=== PATIENT | male | born 1960 | race Caucasian/White ===

== ENCOUNTER 2019-09-11 09:13 | Observation (INO) | payer BC, SELFPAY ==
[2019-09-11] VITALS (69 sets, daily range): BP systolic 106–176; BP diastolic 68–99; PULSE 69–111; RESP 8–28; TEMP 35.8–36.6; O2SAT 92–98
--- NOTE | 2019-09-11 | DI.RAD_ITS ---
EXAM: XR PORTABLE CHEST AP CLINICAL HISTORY: wheezing TECHNIQUE: 2D digital imaging was performed. COMPARISON: No exams were available for comparison FINDINGS: MEDIASTINUM: Normal. HEART: Normal. PULMONARY VASCULATURE: Normal. LUNGS: Clear. PLEURAL SPACE: No pleural effusion or pneumothorax. BONE:Normal. OTHER FINDINGS:Normal. IMPRESSION: No acute pulmonary findings. DATA REPOSITORY: RADIATION DOSE DELIVERED:
[2019-09-11] MEDS: EPINEPHrine 0.3 MG KIT IM (09:17)
[2019-09-11] MEDS: FAMOTIDINE 20 MG/50 ML BAG 200 MG IVPB (09:35)
[2019-09-11] MEDS: diphenhydrAMINE 50 MG/ML VIAL IVP (09:35)
[2019-09-11] MEDS: methylPREDNISolone SUCC 125 MG VIAL IVP (09:35)
--- NOTE | 2019-09-11 09:41 | ED.GENADUL_ITS ---
Discharge Plan Disposition Patient Disposition: HOME Condition: Stable Discharge Details Chief Complaint: Allergic Clinical Impression: Anaphylactic reaction Admit Date/Time: 09/11/19 15:09 Admit Provider: Mehreen Ayala Attending Provider: Mehreen Ayala Primary Care Provider: Rupal Hoyt ED Provider: Stanford Jonas Discharge Data Discharge Date/Time-TO BE ENTERED AT DEPARTURE: 09/11/19 16:05 Medical Decision Making <TYLER Brito - Last Filed: 09/12/19 09:22> This is a 58-year-old patient presenting to the emergency room for concerns of acute allergic reaction. Patient reports he was fishing this morning and felt a prick and his left finger when taking a fish off the hook. Patient reports immediate tingling in his hand followed by swelling in his hand. Patient then reported onset of swelling in his ears. Patient began to feel swelling of his tongue. Patient also notes swelling around his eyes. patient reports onset of symptoms approximately 1-1/2 hours prior to arrival. Has taken no medications. Patient's friend drove him to the emergency room today. He presents with diffuse hive-like rash, swelling noted to his left hand as well as his ears mild fullness of his tongue distally. Patient has no voice change, difficulty breathing at this time or increase in respiratory effort. He does report noting his heart racing initially as well as mild nausea and symptoms of reflux at this time. Patient did report mild dizziness which has improved. Patient initially evaluated upon his arrival to the emergency room. 0.3 mg of epinephrine given IM, IV access obtained, orders for Benadryl, Solu-Medrol and Pepcid as well as IV fluid provided. Care subsequently taken over by Dr. Stanford Jonas. <Stanford Jonas MD - Last Filed: 09/12/19 09:25> 945??58-year-old male with known shellfish allergy history of hypertension presents with left hand swelling, urticarial rash, full body, tachycardia, nausea, and sensation of tongue swelling for the past 1.5 hours after handling of fish and sustaining fishhook puncture to left hand. Screening ECG was performed and reviewed and interpreted by me: Sinus rhythm 97 bpm, normal axis, subtle ST depressions are noted in leads I, 2, 3, aVF, V4 to 6. No old ECG for comparison. Patient has no chest discomfort. No known tetanus immunization identified on file. Plan to give tetanus booster for fishhook puncture. Suspect anaphylactic reaction to fish or unknown shellfish exposure. Patient was initially seen and given epinephrine by TYLER Ramirez. Plan to continue with Solu-Medrol, Benadryl, Pepcid, IV fluids and reassess patient. 1030??patient still with rash although slightly improved. Tongue swelling improved. Given persistent symptoms plan to give second dose of epinephrine. 1300 --patient reassessed and rash much improved. Tongue swelling resolved. 1445 --repeat ECG was ordered given abnormal findings on prior ECG and now multiple doses of epinephrine. The second EKG was interpreted by me: Sinus rhythm 83 bpm, normal axis, continues to have mild ST depression in lead III and now with T wave inversions noted V3 to V5 which are new compared to prior ECG. Patient is asymptomatic. Plan to send troponin. Patient reassessed and rash much improved. HPI <TYLER Brito - Last Filed: 09/12/19 09:22> General Date/Time Provider Initiated Documentation: 09/11/19 09:14 . Related Data Home Medications Medication Instructions Recorded Confirmed lisinopril 10 mg PO DAILY 09/11/19 09/11/19 psyllium husk [Metamucil] 3.4 g PO BID 09/11/19 09/11/19 Allergies Allergy/AdvReac Type Severity Reaction Status Date / Time shellfish derived Allergy Unverified 09/11/19 09:50 <Stanford Jonas MD - Last Filed: 09/12/19 09:25> General Mode of arrival: ambulatory . Limitations to Documentation: no limitations . Information obtained by: patient . HPI Narrative: 58-year-old male presents with chief complaint of rash. Patient notes full body itchy rash that started around 8 AM and has persisted. Patient notes additionally he sustained a slight puncture wound with fishhook to his left hand this morning immediately after started developed left hand swelling and and rash. He also notes a scratchy sensation in his throat with some tongue swelling. No shortness of breath. He has had some associated nausea. Symptoms progressed from moderate to severe. He states they peaked about 1/2-hour before arrival. He has not taken any medications. No modifiers. Of note, patient states he has had frequent similar swelling of his left hand while fishing. He does have a known shellfish allergy. Typically tolerate eating fish including both salmon and a headache. He was not using any shellfish for bait. General Stated Complaint: Allergic CHRIS: 2 <Stanford Jonas MD - Last Filed: 09/12/19 09:25> All systems reviewed & are unremarkable except as noted in HPI and below Constitutional Constitutional: Denies fever(s) ENT Ears, Nose, Mouth, and Throat: Reports as per HPI Cardiovascular Cardiovascular: Denies dyspnea Respiratory Respiratory: Denies cough and Denies dyspnea Integumentary/Breasts Skin/Breast: Reports rash PFSH <TYLER Brito - Last Filed: 09/12/19 09:22> Medical History (Updated 09/11/19 @ 17:37 by Mehreen Ayala MD) Anaphylactic reaction (Acute) Asthma (Chronic) Diverticulosis (Acute) Dyslipidemia (Acute) GERD (gastroesophageal reflux disease) (Chronic) Inflammatory polyps of colon (Acute) Rapid heart rate (Acute) Tobacco abuse (Acute) Surgical History (Updated 09/11/19 @ 17:25 by Mehreen Ayala MD) H/O cardiac catheterization (Inactive) [place], [place], in early 1999's - negative H/O colonoscopy with polypectomy (Acute) repeat colonoscopy in 1 year S/P appendectomy (Acute) Family History (Updated 09/11/19 @ 17:26 by Mehreen Ayala MD) Maternal Grandfather Stroke Mother Cancer pancreatic cancer Father Cancer kidney cancer Social History Smoking/Tobacco Use Status: Current, status unknown Tobacco Type: cigarettes Alcohol Intake: current Alcohol Intake frequency: a few times a week Substance use type: does not use Do you feel safe at home: Yes <Stanford Jonas MD - Last Filed: 09/12/19 09:25> Const General: cooperative and no acute distress HENMT Mouth: lip normal, tongue normal, oropharynx normal and moist mucous membranes Throat: posterior oropharynx normal Other: Voice normal Eyes Conjunctivae: normal conjunctivae Sclera: normal sclerae Neck Neck: trachea midline and supple Resp Auscultation: clear to auscultation bilaterally, no rales, no rhonchi and no wheezes Cardio Jugular venous pressure: no JVD Rate: tachycardic Rhythm: regular rhythm GI Palpation: soft, not firm, no guarding, no masses, not rigid and nontender Skin Rashes: rashes noted (Urticarial rash chest, abdomen, neck, all extremities) Neuro General: patient alert, patient awake, patient oriented x3 and tone normal Extrem General: no edema Psych Appearance: grossly normal Mental Status: mental status grossly normal <Stanford Jonas MD - Last Filed: 09/12/19 09:25> Vital Signs Vital signs: Vital Signs Temperature 36.2 C L 09/11/19 09:18 Pulse 111 H 09/11/19 09:18 Respiratory Rate 09/11/19 09:18 Blood Pressure 134/75 09/11/19 09:18 Pulse Oximetry 94 L 09/11/19 09:18 Temperature 36.2 C L 09/11/19 09:18 Temperature Source Skin 09/11/19 09:18 Pulse 111 H 09/11/19 09:18 Respiratory Rate 20 09/11/19 09:18 Respiratory Effort Non-Labored 09/11/19 09:23 Respiratory Pattern Normal 09/11/19 09:23 Blood Pressure 134/75 09/11/19 09:18 Blood Pressure Position Sitting 09/11/19 09:18 Pulse Oximetry 94 L 09/11/19 09:18 Oxygen Delivery Method Room Air 09/11/19 09:18 Oxygen Flow Rate 0 09/11/19 09:18 <Stanford Jonas MD - Last Filed: 09/12/19 09:25> Critical Care Time Critical Care Time: Yes Total Critical Care Time: 45 Attestation: I spent greater than 45 number of minutes addressing this patient's immediate life threats. Please see MDM section of note. This time was spent engaged in work directly related to the patient's care, exclusive of separate procedures, and failure to initiate these interventions would have likely resulted in clinically significant or life threatening deterioration in the patient's condition.
[2019-09-11] MEDS: Normal Saline 1,000 ML 500 ML IV (09:48)
[2019-09-11] MEDS: EPINEPHrine 1 MG/ML AMP pres-free 0.3 MG SC (10:46)
[2019-09-11 14:03] LABS: Abs Immature Grans 0.02 k/cumm (0.0-0.09); Absolute Basophil Count 0.01 k/cumm (0.0-0.2); Absolute Lymphocyte Count 0.62 k/cumm (1.2-3.4); Basophils % 0.1; HCT 47.2 % (40.0-50.0); HGB 16.3 g/dL (13.5-17.5); Immature Grans % 0.2 %; Lymphocytes % 4.8; Mean Corp. HGB Concentration 34.5 g/dL (32.0-36.0); Mean Corpuscular Hemoglobin 30.8 pg (27.0-33.0); Mean Corpuscular Volume 89.1 fL (80-95); Mean Platelet Volume 9.6 fL (8.0-11.0); Monocytes % 2.3; Neutrophils % 92.6; Platelet Count 194 x1000/uL (130-400); RBC Distribution Width 13.1 % (11.8-14.1); White Blood Cell Count 12.98 k/cumm (4.4-10.8)
[2019-09-11 14:04] LABS: Absolute Neutrophil Count 12.02 k/cumm (1.2-6.7)
[2019-09-11 14:18] LABS: ALT 28 U/L (16-63); AST 17 U/L (15-37); Albumin 3.7 g/dL (3.4-5.0); Alkaline Phosphatase 54 U/L (46-116); Anion Gap 6.5 mmol/L (3-11); BUN 14 mg/dL (7-18); Bilirubin, Total 0.5 mg/dL (0.2-1.0); CO2 28.5 mmol/L (21.0-32.0); CREATININE 1.21 mg/dL (0.70-1.30); Chloride 107 mmol/L (98-107); Glucose 117 mg/dL (74-106); Potassium 3.6 mmol/L (3.5-5.1); Sodium 142 mmol/L (136-145); Total Protein 6.6 g/dL (6.4-8.2); Troponin I < 0.05 ng/mL (<0.06)
--- NOTE | 2019-09-11 17:12 | W.PM.HP.N ---
Date of service: 09/11/19 Time of Service: 17:12 Assessment and Plan Assessment and plan (1) Anaphylactic reaction: Status: Acute Assessment and plan: In setting of a small puncture wound from fishing hook pulled out of a fish. Will continue methylprednisolone initiated in ED - 40 mg IV Q8hrs - as well as benadryl 50 mg PO Q6hrs. Monitor closely. Will have human resources consultant epinephrine at bedside. The patient refuses a tetanus shot. (2) Acute electrocardiography changes: Status: Acute Assessment and plan: In setting of anaphylactic reaction - but also after administration of epinephrine, which could be considered a stress test of sorts. Will continue to trend troponins, monitor on tele, repeat EKG in am. May require further inpatient vs outpatient ischemic workup depending on results. S/p asa in ED - will continue 81 mg PO daily. Check lipids. (3) Hypertension: Status: Chronic Assessment and plan: Continue lisinopril - may have to increase dose. I suspect that some of the hypertension we are seeing now is related to having received epinephrine. (4) Wheezing: Status: Acute Assessment and plan: Clears with coughing. Could be related to anaphylaxis, but doubt it. Will get a CXR. Will rx prn albuterol. (5) DVT prophylaxis: Status: Acute Assessment and plan: lovenox sc (6) Discharge planning issues: Status: Acute Assessment and plan: Full code History of Present Illness History of Present Illness Chief Complaint: Anaphylactic reaction while fishing Narrative: Mr Rm is a 58 year old male with PMHx of a shellfish allergy, as well as rapid heart rate in early with a negative heart cath as part of that work-up ([place], [place]), hypertension, ongoing tobacco abuse, who noticed a left hand itching and swelling, followed by left ear feeling weird, followed by swelling of the tongue while fishing and after catching his 2nd digit of RUE on the fish hook he had just removed from a fish. He also noticed a rash on his arms. He denied chest pain/pressure, difficulty swallowing, shortness of breath, wheezing, palpitations. In the ED, he was treated with epinephrine x2, as well as solumedrol, famotidine, and benadryl with complete resolution of tongue swelling. His L hand swelling still persists, but is better. While in the ED, the patient was noted to have dynamic EKG changes while asymptomatic. His original EKG revealed inferio-lateral ST segment depression. Repeat EKG shows T wave inversions in the same distribution. The hospitalist service was asked to observe the patient overnight to ensure he did not sustain an MT. Review of Systems Narrative: 12 systems reviewed. Pertinent positives and negatives are as per HPI. Additionally, the patient states the left hand swelling/itching has happened before -only while fishing. Also, he denies any known contacts with COVID-19 or travel outside of our immediate area [facility] Medical History (Updated 09/11/19 @ 17:37 by Mehreen Ayala MD) Anaphylactic reaction (Acute) Asthma (Chronic) Diverticulosis (Acute) Dyslipidemia (Acute) GERD (gastroesophageal reflux disease) (Chronic) Inflammatory polyps of colon (Acute) Rapid heart rate (Acute) Tobacco abuse (Acute) Surgical History (Updated 09/11/19 @ 17:25 by Mehreen Ayala MD) H/O cardiac catheterization (Inactive) [place], [place], in early s - negative H/O colonoscopy with polypectomy (Acute) repeat colonoscopy in 1 year S/P appendectomy (Acute) Family History (Updated 09/11/19 @ 17:26 by Mehreen Ayala MD) Maternal Grandfather Stroke Mother Cancer pancreatic cancer Father Cancer kidney cancer Social History Smoking/Tobacco Use Status: Current, status unknown Tobacco Type: cigarettes Alcohol Intake: current Alcohol Intake frequency: a few times a week Substance use type: does not use Do you feel safe at home: Yes Meds Home Medications and Allergies Home Medications Medication Instructions Recorded Confirmed Type lisinopril 10 mg PO DAILY 09/11/19 09/11/19 History psyllium husk [Metamucil] 3.4 g PO BID 09/11/19 09/11/19 History Allergies Allergy/AdvReac Type Severity Reaction Status Date / Time shellfish derived Allergy Unverified 09/11/19 09:50 Exam Narrative Exam Narrative: General: Very pleasant male, laying comfortably in bed, no evidence of respiratory distress Neurological: A&Ox3, no focal deficits Psychiatric: appropriate speech pattern/content Skin: Visible skin intact - the puncture augustus from the hook on L second digit does not appear visibly infected; there is no bleeding HEENT: Atraumatic, normocephalic, EOMI, MMM, clear oropharynx though tongue has white film on it, tongue does not appear swollen, no submandibular or cervical lymphadenopathy, no goiter or JVD Cardiovascular: RRR, mildly tachycardic (90's), no m/r/g Lungs: slight wheezing on expiration B - clears with cough; then, sounds coarse throughout Gastrointestinal: soft, nontender, nondistended Genitourinary: deferred Extremities: no e/c/c BLE's, 2+ pedal pulses B; L hand/wrist slightly edematous, no erythema. Feels warm. Results Imaging Additional studies: EKG #1: NSR, HR 97, inferolateral ST segment depression/flattening EKG #2: NSR, HR 83, inferolateral T wave inversions Labs Result diagrams: 09/11/19 13:54 09/11/19 13:54 Labs: Laboratory Results - last 24 hr 09/11/19 09/11/19 13:54 13:54 WBC 12.98 H RBC 5.30 Hgb 16.3 Hct 47.2 MCV 89.1 MCH 30.8 MCHC 34.5 RDW 13.1 Plt Count 194 MPV 9.6 Immature Gran % 0.2 Neutrophils % 92.6 Lymphocytes % 4.8 Monocytes % 2.3 Eosinophils % 0.0 Basophils % 0.1 Absolute Neutrophils 12.02 H Absolute Lymphocytes 0.62 L Absolute Monocytes 0.30 Absolute Eosinophils 0.00 Absolute Basophils 0.01 Sodium 142 Potassium 3.6 Chloride 107 Carbon Dioxide 28.5 Anion Gap 6.5 BUN 14 Creatinine 1.21 Estimated GFR/1.73 m2 >= 60.00 Glucose 117 H Calcium 9.0 Total Bilirubin 0.5 AST 17 ALT 28 Alkaline Phosphatase 54 Troponin I < 0.05 Total Protein 6.6 Albumin 3.7 Last Vital Signs Temp 36.6 C 09/11/19 16:15 Pulse 89 09/11/19 16:15 Resp 18 09/11/19 16:15 BP 171/93 H 09/11/19 16:15 Pulse Ox 96 09/11/19 16:15 COVID-19 Screening In the past 14 days, have you traveled outside of [place]?: NO Had IN PERSON contact w/suspected or confirmed C-19 person: No
[2019-09-11] MEDS: Aspirin 325 MG TAB (17:44)
--- NOTE | 2019-09-11 18:07 | DI.VRAD_ITS ---
PROCEDURE INFORMATION: Exam: XR Chest, 1 View Exam date and time: 09/11/2019 17:58 Age: 58 years old Clinical indication: Wheezing TECHNIQUE: Imaging protocol: XR of the chest Views: 1 view. COMPARISON: No relevant prior studies available. FINDINGS: Lungs: No airspace consolidation. No significant interstitial disease for the degree of inflation. Pleural space: No significant pleural effusion. No pneumothorax. Heart/Mediastinum: No cardiomegaly. Vasculature: Tortuous aorta. Bones/joints: No acute fracture. IMPRESSION: Negative portable chest. Dictated and Authenticated by: Chantell Wallace MD. Ordering:DWAYNE Verde MD
[2019-09-11 18:40] LABS: Troponin I < 0.05 ng/mL (<0.06)
[2019-09-11] MEDS: diphenhydrAMINE 25 MG CAP 50 MG PO (18:43)
[2019-09-11] MEDS: Normal Saline Flush 10 ML SYR IVP (18:44)
[2019-09-11] MEDS: methylPREDNISolone SUCC 40 MG VIAL IVP (18:44)
[2019-09-11] MEDS: Psyllium PKT 1 EACH PO (19:45)
[2019-09-12] MEDS: diphenhydrAMINE 25 MG CAP 50 MG PO ×3 (00:06→12:05)
[2019-09-12] MEDS: methylPREDNISolone SUCC 40 MG VIAL IVP ×2 (02:05→09:50)
[2019-09-12] MEDS: Normal Saline Flush 10 ML SYR IVP ×2 (02:06→09:51)
[2019-09-12 04:55] VITALS: BP 145/71; PULSE 78; RESP 18; TEMP 36.6; O2SAT 97
[2019-09-12 07:20] LABS: Abs Immature Grans 0.04 k/cumm (0.0-0.09); Absolute Basophil Count 0.02 k/cumm (0.0-0.2); Absolute Lymphocyte Count 0.95 k/cumm (1.2-3.4); Absolute Monocyte Count 0.47 k/cumm (0.11-0.7); Absolute Neutrophil Count 13.78 k/cumm (1.2-6.7); Anion Gap 7.8 mmol/L (3-11); BUN 21 mg/dL (7-18); Basophils % 0.1; CO2 26.2 mmol/L (21.0-32.0); Calcium 9.7 mg/dL (8.5-10.1); Chloride 106 mmol/L (98-107); Glucose 156 mg/dL (74-106); HCT 43.1 % (40.0-50.0); HGB 14.9 g/dL (13.5-17.5); Immature Grans % 0.3 %; Lymphocytes % 6.2; Mean Corp. HGB Concentration 34.6 g/dL (32.0-36.0); Mean Corpuscular Hemoglobin 30.9 pg (27.0-33.0); Mean Corpuscular Volume 89.4 fL (80-95); Mean Platelet Volume 10.3 fL (8.0-11.0); Monocytes % 3.1; Neutrophils % 90.3; Platelet Count 203 x1000/uL (130-400); RBC 4.82 m/cumm (4.50-6.00); RBC Distribution Width 13.1 % (11.8-14.1); Sodium 140 mmol/L (136-145); White Blood Cell Count 15.26 k/cumm (4.4-10.8)
[2019-09-12 07:35] LABS: Calculated LDL 110 mg/dL (<100); Cholesterol 184 mg/dL (<200); HDL Cholesterol 64 mg/dL (40-60); Magnesium 2.2 mg/dL (1.8-2.4); TSH (W/Ref FT4) 0.28 uIU/mL (0.36-3.74); Triglyceride 51 mg/dL (<150); Troponin I < 0.05 ng/mL (<0.06)
[2019-09-12 07:45] VITALS: BP 151/84; PULSE 88; RESP 18; TEMP 36.8; O2SAT 96
[2019-09-12 07:54] LABS: FREE T4 0.74 ng/dL (0.76-1.46)
[2019-09-12 07:56] LABS: COVID-19 RT-PCR UVMMC Result Negative (Negative)
[2019-09-12] MEDS: Psyllium PKT 1 EACH PO (08:21)
[2019-09-12] MEDS: Aspirin E.C. 81 MG TABEC PO (08:21)
[2019-09-12] MEDS: Lisinopril 10 MG TAB PO (08:22)
[2019-09-12] MEDS: Pantoprazole 20 MG TABCR PO (08:22)
--- NOTE | 2019-09-12 10:51 | PDOC.CMIN ---
- If Service Date Differs Date of service: 09/12/19 Time of Service: 10:51 Care Management Initial Assess REASON FOR HOSPITALIZATION:: Anaphylatic reaction and EKG changes. PAST MEDICAL HISTORY/PAST SURGICAL HISTORY:: Medical History: Anaphylactic reaction, Asthma, Diverticulosis, Dyslipidemia,. GERD (gastroesophageal reflux disease), Inflammatory polyps of colon, Rapid heart rate, and Tobacco abuse. Surgical History: H/O cardiac catheterization - [place], [place], in early s - negative, H/O colonoscopy with polypectomy - repeat colonoscopy in 1 year, and S/P appendectomy. PREVIOUS FUNCTIONAL STATUS/SOCIAL/FAMILY SUPPORTS:: Guillaume lives in [place] with his , Verito. He has two children: a daughter who lives in [place] and a son who is currently at home due to the pandemic, but attends the [employer] on an [employer] baseball scholarship. 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 He enjoys fishing, golfing, riding his motorcycle, and going to his son's baseball games. When asked about social/family supports, Guillaume states he has lots of friends in the community and describes his and his 3 sisters who live in the [place] as supportive. CURRENT FUNCTIONAL STATUS:: Guillaume is lying in bed watching television when CM comes to meet with him. He is pleasant and easily engages in conversation. He talks about his son and is clearly quite proud of him, as he is attending college on a baseball scholarship. Guillaume states he is feeling better and is looking forward to returning home. He drives and is independent with his ADLs at baseline. CM will continue to follow. ADVANCE DIRECTIVES:: None on file. Has patient been provided with info about the portal/API?: Yes Did the patient sign up for the portal?: No (Patient declines.) CODE STATUS:: Full Code INSURANCE COVERAGE / FINANCIAL ISSUES:: BCBS CURRENT HOME/COMMUNITY SERVICES/EQUIPMENT:: Denies home/community services or equipment. PRIMARY CARE PHYSICIAN[place] Rupal Hoyt aprn [place] [place]OTENTIAL DISCHARGE NEEDS:: Follow up appointment with PCP and cardiology. PATIENT/FAMILY EDUCATION NEEDS:: Discharge instructions, limitations, follow up plan of care, including Ask Me Three and self-management. ANTICIPATED BARRIERS TO DISCHARGE:: None. TRANSPORTATION:: Via private vehicle with family. PLAN:: Guillaume will be discharged home when medically cleared by provider. He will follow up with his PCP, cardiology, and plan of care as directed. Verito will drive him home when ready. CM will continue to follow.
--- NOTE | 2019-09-12 13:17 | W.PM.DS.N ---
Date of service: 09/12/19 Time of Service: 13:17 DS: Diagnosis Discharge Diagnosis (1) Anaphylactic reaction: Status: Acute (2) Acute electrocardiography changes: Status: Acute (3) Hypertension: Status: Chronic (4) Wheezing: Status: Resolved (5) Dyslipidemia: Status: Acute (6) Abnormal thyroid function test: Status: Acute (7) Steroid-induced hyperglycemia: Status: Acute (8) COVID-19 ruled out: Status: Acute Discharge Plan Disposition Patient Disposition: HOME Condition: Stable Discharge Details Chief Complaint: Allergic Clinical Impression: Anaphylactic reaction Reason For Visit: ANAPHYLAXIS EKG CHANGES Admit Date/Time: 09/11/19 15:09 Admit Provider: Mehreen Ayala Attending Provider: Mehreen Ayala Primary Care Provider: Rupal Hoyt ED Provider: Stanford Jonas Hospital Course Hospital Course: Mr Rm is a 58 year old male with PMHx of shellfish allergy, hypertension, dyslipidemia, tobacco abuse, who was observed on [facility] hospitalist service overnight from 09/11/2019 until after presenting with anaphylactic reaction which occurred while fishing. The anaphylactic reaction presented as L hand itching and swelling, followed by tongue swelling, rash, and not feeling well. He required 2 doses of epinephrine, methylprednisolone IV, benadryl, and famotidine, followed by smaller doses of methylprednisolone and benadryl with complete resolution of his allergic symptoms. Because he injured his 2nd digit of IRVINGE on a fishing hook, a tetanus shot was recommended to the patient, which he refused. He is being discharged home with 1 more day of prednisone as well as benadryl through tomorrow. He is asked to abstain from fishing. He is being prescribed an epi pen on discharge. However, while in the ED, an EKG was obtained for baseline, showing ST segment depressions in inferolateral leads. Several hours later, repeat EKG showed T wave inversions in leads III, V3-V5. These T wave inversions persist on EKG done this morning. He did not have any chest pains throughout his hospital stay (or prior) and his serial troponins have been negative. There were no arrhythmic events on telemetry. His case was discussed with cardiology at [facility], who felt that the patient would benefit from an outpatient nuclear stress test, which was felt safe to be performed at a critical access hospital. He was initiated on a baby aspirin and is being discharged home with addition of statin and with prn nitroglycerin. He was instructed not to exercise/do heavy physical activity until his stress test is complete. He was advised to stop smoking. Patient declined a doctor's note. Patient's blood pressure is elevated to SBP of 150's here, likely due to ongoing steroid therapy. His PCP should follow up on this once he is off of steroids and adjust it. His A1C is pending on discharge, though it is believed that his fasting hyperglycemia today is also due to the current steroid burst. Finally, the patient has borderline low TSH and Free T4. In light of current stressors, it is hard to interpret these numbers, and the test should be rechecked in a week and followed up by PCP. If both TSH/Free T4 are indeed low, central causes of hypothyroidism should be considered. He tested negative for COVID-19 during his hospital stay. The patient is medically stable for discharge home with outpatient follow up as above. He verbalizes understanding of my instructions. Home Meds and New Rx's Prescriptions: New aspirin 81 mg Tablet,Delayed Release (Dr/Ec) 81 mg PO DAILY Qty: 30 RF: 0 diphenhydramine HCl 25 mg Capsule 50 mg PO Q6H Qty: 12 RF: 0 epinephrine 0.3 mg/0.3 mL auto-injector 0.3 ml SC Q5-15M PRN (Reason: anaphylaxis) Qty: 2 RF: 0 nitroglycerin 0.4 mg tablet, sublingual 0.4 mg SL Q5M PRNQty: 30 RF: 0 atorvastatin [Lipitor] 20 mg tablet 20 mg PO QHS Qty: 30 RF: 0 prednisone 20 mg tablet 40 mg PO DAILY Qty: 2 RF: 0 Continued lisinopril 10 mg Tablet 10 mg PO DAILY RF: 0 Metamucil 3.4 gram/5.4 gram Powder 3.4 g PO BID RF: 0 Discharge Instructions Instructions: Atorvastatin (By mouth), Epinephrine (Injection), How to Stop Smoking (DC), Anaphylaxis (ED), Nuclear Stress Test (DC) Additional Instructions: Return to the hospital with any chest pain, repeat allergic reaction, fever, bleeding, shortness of breath. Avoid fishing. Use EpiPen as prescribed for severe allergic reaction. Have the epi pen always on you. Please follow-up with an station baggage porter at [facility]. Call phone: to schedule an appointment. Follow up with your PCP and for your stress test. Do not exercise/perform strenuous physical activity until the results of your stress test are known. Stand Alone Forms: Nursing Discharge Form Referrals: Allergy,[facility] [OTHER] - (Please follow-up with an station baggage porter at [facility]. Call phone: to schedule an appointment.) Rupal Hoyt [Primary Care Provider] - (Please call the office on Friday morning to schedule an appointment to be seen within a week) Activity:: Avoid exercise/strenuous activity until the results of the stress test are known Equipment/Supplies:: No Equipment Needed Diet:: Low Sodium Discharge Orders Discharge Orders: Discharge Order (Routine); Ordered 09/12/19 Ordered By: Mehreen Ayala Other Ambulatory Orders: Free T4 (Routine) Timeframe: 1 Week Facility: [facility] - Location: Laboratory Outpatient Ordered By: Mehreen Ayala NM MPI rest & stress grp (Routine) Timeframe: 3 Days Facility: [facility] - Location: CARDIAC LAB Ordered By: Mehreen Ayala TSH (Routine) Timeframe: 1 Week Facility: [facility] - Location: Laboratory Outpatient Ordered By: Mehreen Ayala DS: Summary Status at Discharge Functional status at discharge: independent ambulation Overall status at discharge: patient is back to baseline Mental Status: mental status grossly normal Speech and Movement: speech and movement normal Mood: congruent mood Affect: normal affect Exam Narrative Exam Narrative: General: Very pleasant male, sitting up in bed, A&Ox3, no rashes HEENT: EOMI, MMM, no tongue swelling Cardiovascular: RRR, no m/r/g Lungs: coarse breath sounds B with no wheezing Gastrointestinal: soft, nontender, nondistended Extremities: no edema BLE's, 2+ pedal pulses B; slight clubbing B hands, no cyanosis. L hand/wrist equal to R Psych Mental Status: mental status grossly normal Speech and Movement: speech and movement normal Mood: congruent mood Affect: normal affect DS: Data Vitals/I&O Vitals and I&O: Vital Signs Temperature 36.8 C 09/12/19 07:45 Temperature Source Tympanic 09/12/19 07:45 Pulse 88 09/12/19 07:45 Pulse Rhythm Regular 09/12/19 11:13 Pulse 93 H 09/11/19 15:53 Respiratory Rate 18 09/12/19 07:45 Respiratory Effort Non-Labored 09/12/19 11:13 Respiratory Depth Normal 09/12/19 11:13 Respiratory Pattern Normal 09/12/19 11:13 Blood Pressure 151/84 H 09/12/19 07:45 Blood Pressure Mean 93 09/11/19 15:16 Blood Pressure Position Sitting 09/11/19 09:18 Pulse Oximetry 96 09/12/19 07:45 Oxygen Delivery Method Room Air 09/12/19 07:45 Oxygen Flow Rate 0 09/12/19 07:45 Pain Level 0 09/12/19 07:45 Intake & Output 09/11/19 09/12/19 09/12/19 23:59 11:59 23:59 Intake Total 550 / 1600 310 / 310 Balance 550 / 1600 310 / 310 Weight 83.6 kg 85.6 kg Intake: IV 10 / 10 Oral 550 / 550 300 / 300 Other: Urine Color Yellow Urine Appearance Clear Clear Voiding Methods Toilet Data Completed and Pending Completed studies during hospitalization [Text1]: CXR: Negative portable chest. Pending studies at discharge: A1C Needs TSH/Free T4 rechecked in 1 week. Labs on day of discharge: Labs from last 24 hours 09/12/19 09/12/19 09/12/19 06:45 06:45 06:45 WBC 15.26 H RBC 4.82 Hgb 14.9 Hct 43.1 MCV 89.4 MCH 30.9 MCHC 34.6 RDW 13.1 Plt Count 203 MPV 10.3 Immature Gran % 0.3 Neutrophils % 90.3 Lymphocytes % 6.2 Monocytes % 3.1 Eosinophils % 0.0 Basophils % 0.1 Absolute Neutrophils 13.78 H Absolute Lymphocytes 0.95 L Absolute Monocytes 0.47 Absolute Eosinophils 0.00 Absolute Basophils 0.02 Sodium 140 Potassium 4.0 Chloride 106 Carbon Dioxide 26.2 Anion Gap 7.8 BUN 21 H D Creatinine 1.20 Estimated GFR/1.73 m2 >= 60.00 Glucose 156 H Calcium 9.7 Magnesium 2.2 Total Bilirubin AST ALT Alkaline Phosphatase Troponin I < 0.05 Total Protein Albumin Triglycerides 51 Total Cholesterol 184 LDL Cholesterol, Calc 110 H HDL Cholesterol 64 TSH 0.28 L Free T4 0.74 L COVID-19 PCR Nasopharyn COVID-19 PCR Ref Test Perform Site 09/11/19 09/11/19 09/11/19 18:03 15:44 13:54 WBC 12.98 H RBC 5.30 Hgb 16.3 Hct 47.2 MCV 89.1 MCH 30.8 MCHC 34.5 RDW 13.1 Plt Count 194 MPV 9.6 Immature Gran % 0.2 Neutrophils % 92.6 Lymphocytes % 4.8 Monocytes % 2.3 Eosinophils % 0.0 Basophils % 0.1 Absolute Neutrophils 12.02 H Absolute Lymphocytes 0.62 L Absolute Monocytes 0.30 Absolute Eosinophils 0.00 Absolute Basophils 0.01 Sodium Potassium Chloride Carbon Dioxide Anion Gap BUN Creatinine Estimated GFR/1.73 m2 Glucose Calcium Magnesium Total Bilirubin AST ALT Alkaline Phosphatase Troponin I < 0.05 Total Protein Albumin Triglycerides Total Cholesterol LDL Cholesterol, Calc HDL Cholesterol TSH Free T4 COVID-19 PCR Negative Nasopharyn COVID-19 PCR Not Applicable Ref Test Perform [facility] 09/11/19 13:54 WBC RBC Hgb Hct MCV MCH MCHC RDW Plt Count MPV Immature Gran % Neutrophils % Lymphocytes % Monocytes % Eosinophils % Basophils % Absolute Neutrophils Absolute Lymphocytes Absolute Monocytes Absolute Eosinophils Absolute Basophils Sodium 142 Potassium 3.6 Chloride 107 Carbon Dioxide 28.5 Anion Gap 6.5 BUN 14 Creatinine 1.21 Estimated GFR/1.73 m2 >= 60.00 Glucose 117 H Calcium 9.0 Magnesium Total Bilirubin 0.5 AST 17 ALT 28 Alkaline Phosphatase 54 Troponin I < 0.05 Total Protein 6.6 Albumin 3.7 Triglycerides Total Cholesterol LDL Cholesterol, Calc HDL Cholesterol TSH Free T4 COVID-19 PCR Nasopharyn COVID-19 PCR Ref Test Perform Site [facility] Medical History (Updated 09/12/19 @ 13:20 by Mehreen Ayala MD) Anaphylactic reaction (Acute) Asthma (Chronic) Diverticulosis (Acute) Dyslipidemia (Acute) GERD (gastroesophageal reflux disease) (Chronic) Inflammatory polyps of colon (Acute) Rapid heart rate (Acute) Tobacco abuse (Acute) Surgical History (Updated 09/11/19 @ 17:25 by Mehreen Ayala MD) H/O cardiac catheterization (Inactive) [place], [place], in early 2000's - negative H/O colonoscopy with polypectomy (Acute) repeat colonoscopy in 1 year S/P appendectomy (Acute) Family History (Updated 09/11/19 @ 17:26 by Mehreen Ayala MD) Maternal Grandfather Stroke Mother Cancer pancreatic cancer Father Cancer kidney cancer Social History Smoking/Tobacco Use Status: Current, status unknown Tobacco Type: cigarettes Alcohol Intake: current Alcohol Intake frequency: a few times a week Substance use type: does not use Do you feel safe at home: Yes
[2019-09-12 13:39] LABS: Hemoglobin A1C 5.6 % (3.8-5.6)
--- NOTE | 2019-09-13 08:57 | PDOC.CMDIS ---
- If Service Date Differs Date of service: 09/12/19 Time of Service: 08:57 LACE Index Scoring Tool - Questions: Length of Stay (in days): 1 Acuity (Admit via E.D.?): Yes E.D. Visits: 1 - Answers: Total Score: 5 Risk of Readmission: Low Risk Care Management Discharge Reason for Hospitalization: Anaphylatic reaction and EKG changes. Discharge Plan: Guillaume is discharged home with no new services. He will follow up with his PCP, [facility], and plan of care as directed. His , Verito, is driving him home via private vehicle. Patient/Family Education Needs: Nursing will review discharge instructions with Guillaume re medications and follow up plan of care. Guillaume is able to verbalize reason for hospitalization and how to manage care at home.
== END 2019-09-12 14:25 | disposition home or self-care (01) ==
LOC: ER 15:38 → MS 16:10
PROVIDERS: Admitting Provider Internal Medicine; Emergency Provider Student in an Organized Health Care Education/Training Program; PCP Nurse Practitioner Family; Visit Provider Internal Medicine
DX: T78.2XXA Anaphylactic shock, unspecified, initial encounter (principal); R94.31 Abnormal electrocardiogram [ECG] [EKG]; I10 Essential (primary) hypertension; E78.5 Hyperlipidemia, unspecified; S61.239A Puncture wound without foreign body of unspecified finger without damage to nail, initial encounter; W26.8XXA Contact with other sharp object(s), not elsewhere classified, initial encounter; J45.909 Unspecified asthma, uncomplicated; K21.9 Gastro-esophageal reflux disease without esophagitis; R00.0 Tachycardia, unspecified; F17.210 Nicotine dependence, cigarettes, uncomplicated; R06.2 Wheezing; R73.9 Hyperglycemia, unspecified; T38.0X5A Adverse effect of glucocorticoids and synthetic analogues, initial encounter
CPT/HCPCS: 36415; 80048; 80053; 80061; 93005; 96361; 96365; 96372; 96375; 99217; 99220; 99291; U0003; 71045; 83036; 83735; 84439; 84443; 84484; 85025; 93010; G0378; J0171; J1200; J2930

== ENCOUNTER 2021-10-03 10:57 | Emergency (ER) | payer BC, SELFPAY ==
[2021-10-03 11:01] VITALS: BP 180/97; PULSE 83; RESP 18; TEMP 37; O2SAT 97
--- NOTE | 2021-10-03 11:03 | W.ED.GENAD ---
Discharge Plan Disposition Patient Disposition: HOME Condition: Good Discharge Details Clinical Impression: Abrasion of cornea, left Primary Care Provider: Rupal Hoyt ED Provider: Crispin Kulkarni Home Meds and New Rx's Prescriptions: Continued lisinopril 10 mg Tablet 10 mg PO DAILY Metamucil 3.4 gram/5.4 gram Powder 3.4 g PO BID aspirin 81 mg Tablet,Delayed Release (Dr/Ec) 81 mg PO DAILY Qty: 30 0RF diphenhydramine HCl 25 mg Capsule 50 mg PO Q6H Qty: 12 0RF epinephrine 0.3 mg/0.3 mL auto-injector 0.3 ml SC Q5-15M PRN (Reason: anaphylaxis) Qty: 2 0RF Rx Instructions: do not exceed 2 doses per episode nitroglycerin 0.4 mg tablet, sublingual 0.4 mg SL Q5M PRNQty: 30 0RF Rx Instructions: do not exceed 3 doses per episode atorvastatin [Lipitor] 20 mg tablet 20 mg PO QHS Qty: 30 0RF prednisone 20 mg tablet 40 mg PO DAILY Qty: 2 0RF Rx Instructions: Take tomorrow am Discharge Instructions Instructions: Corneal Abrasion (ED) Additional Instructions: At this time you have a mild corneal abrasion. Please continue to place erythromycin ointment in your eye every 4-6 hours. Follow-up closely with Dr. Jimenez for reassessment. If you notice any worsening of your symptoms, or any new symptoms such as vomiting, diarrhea, fever, chills, shortness of breath, chest pain, numbness, weakness, or fainting , please return immediately to the emergency department for reevaluation. Please follow up with your primary care provider as soon as possible for reassessment and reevaluation. As always, it was a pleasure participating in your medical care today. Referrals: Rupal Hoyt [Primary Care Provider] - [facility] [Outside] Medical Decision Making This is a very pleasant 60-year-old male who presents today for left eye irritation. He states that yesterday he may have scratched to the area and then subsequently thereafter had the sensation of a mild foreign body there. He denies any welding, any working with rest or hammering or metal fragments or grinding. He states that his tetanus has been updated in the last 10 years. He does not use contact lenses. No other complaints at this time. He denies any significant visual changes otherwise. No change in color visualization. No trauma. Exam demonstrates evidence of a corneal abrasion in the central aspect of the eye. Negative Es scaling. No foreign body. No rust ring, no other abnormality. Patient does not use any contact lenses. Erythromycin ointment has been given. Patient tolerated well. Will recommend follow-up with Dr. Albright. Discussed red flags which return. I have extensively reviewed the treatment plan and discharge instructions with the patient. I have addressed all patient concerns at this time. The patient was made aware of what symptoms to monitor for that would warrant a return to the emergency department. Discussed the plan with the patient, they demonstrate verbal understanding and agreement with our assessment and plan at this time. The documentation in this chart was dictated using [employer] dictation software. Please excuse any dictation errors. HPI General Date/Time Provider Initiated Documentation: 10/03/21 10:58. HPI Narrative: This is a very pleasant 60-year-old male who presents today for left eye irritation. He states that yesterday he may have scratched to the area and then subsequently thereafter had the sensation of a mild foreign body there. He denies any welding, any working with rest or hammering or metal fragments or grinding. He states that his tetanus has been updated in the last 10 years. He does not use contact lenses. No other complaints at this time. He denies any significant visual changes otherwise. No change in color visualization. No trauma. Related Data Home Medications Medication Instructions Recorded Confirmed lisinopril 10 mg tablet 10 mg PO DAILY 09/11/19 09/11/19 psyllium husk 3.4 gram/5.4 gram 3.4 g PO BID 09/11/19 09/11/19 oral powder (Metamucil) aspirin 81 mg tablet,delayed 81 mg PO DAILY #30 tabs 09/12/19 release atorvastatin 20 mg tablet (Lipitor) 20 mg PO QHS #30 tabs 09/12/19 diphenhydramine HCl 25 mg capsule 50 mg PO Q6H #12 caps 09/12/19 epinephrine 0.3 mg/0.3 mL 0.3 ml subcut Q5-15M PRN 09/12/19 injection, auto-injector anaphylaxis #2 ea nitroglycerin 0.4 mg sublingual 0.4 mg sublingual Q5M PRN #30 tabs 09/12/19 tablet prednisone 20 mg tablet 40 mg PO DAILY #2 tabs 09/12/19 Previous Rx's Medication Instructions Recorded aspirin 81 mg tablet,delayed 81 mg PO DAILY #30 tabs 09/12/19 release atorvastatin 20 mg tablet (Lipitor) 20 mg PO QHS #30 tabs 09/12/19 diphenhydramine HCl 25 mg capsule 50 mg PO Q6H #12 caps 09/12/19 epinephrine 0.3 mg/0.3 mL 0.3 ml subcut Q5-15M PRN 09/12/19 injection, auto-injector anaphylaxis #2 ea nitroglycerin 0.4 mg sublingual 0.4 mg sublingual Q5M PRN #30 tabs 09/12/19 tablet prednisone 20 mg tablet 40 mg PO DAILY #2 tabs 09/12/19 Allergies Allergy/AdvReac Type Severity Reaction Status Date / Time shellfish derived Allergy Unverified 09/11/19 09:50 General CHRIS: 2 Review of Systems All systems reviewed & are unremarkable except as noted in HPI and below PFSH All Active Problems Abrasion of cornea, left (Acute) COVID-19 ruled out (Acute) Steroid-induced hyperglycemia (Acute) Abnormal thyroid function test (Acute) Dyslipidemia (Acute) Discharge planning issues (Acute) DVT prophylaxis (Acute) Tobacco abuse (Acute) Acute electrocardiography changes (Acute) Anaphylactic reaction (Acute) Hypertension (Chronic) Medical History Asthma Diverticulosis GERD (gastroesophageal reflux disease) Inflammatory polyps of colon Rapid heart rate Surgical History H/O cardiac catheterization [place], [place], in early s - negative H/O colonoscopy with polypectomy repeat colonoscopy in 1 year S/P appendectomy Family History Maternal Grandfather Stroke Mother Cancer pancreatic cancer Father Cancer kidney cancer Social History (Reviewed 10/03/21 @ 11:13 by DESI Muñoz Smoking/Tobacco Use Status: Current, status unknown Tobacco Type: cigarettes Smoking risk assessment performed?: Yes Alcohol Intake: current Alcohol Intake frequency: a few times a week Substance use type: does not use Do you feel safe at home: Yes Exam Narrative Exam Narrative: 1.Const: Well-nourished, Well-developed, appearing stated age 2.Eyes: PERRL, no conjunctival injection, and symmetrical lids. Left eye: EOMI, PERRL, Peripheral vision intact. No nystagmus. No clinical signs of septal/orbital cellulitis, no redness around the eye, no proptosis. Mild conjunctivitis present. No hyphema, no signs of trauma around the eye, no periorbital emphysema. No sluggishness of the pupil. No ophthalmoplegia. No afferent pupillary defect. Fluorescein exam is positive for corneal abrasion with a notable central abrasion. No foreign body present on eversion of the lid. No rust ring or foreign body noted in general. negative Es sign. Visual acuity as documented in chart. 3.ENT: Atraumatic external nose and ears. Moist MM. Neck: Symmetric, trachea midline, No thyromegaly. 4.CVS: +S1/S2, No murmurs or gallops. Peripheral pulses 2+ and equal in all extremities. Brisk capillary refill in all extremities. 5.RESP: Unlabored respiratory effort. Clear to auscultation bilaterally. No wheezes rales or rhonchi 6.GI: Soft, Nontender/Nondistended, No hepatosplenomegaly. No guarding or rebound. 7.MSK: Normocephalic/Atraumatic, Extremities w/o deformity or ttp No cyanosis or clubbing, Normal movement of all extremities 8.Skin: Warm, Dry. No rashes or lesions. 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 Sensation grossly intact, no focal neurologic deficits. 10.Psych: (AAO) x3. Appropriate mood and affect
[2021-10-03] MEDS: Fluorescein STRIPS 100/BOX 1 MG (11:07)
[2021-10-03] MEDS: Tetracaine 0.5% 4 ML BTL (11:07)
[2021-10-03] MEDS: Erythromycin Ophth Oint 3.5 GM TUBE ×2 (11:07→11:12)
--- OUTSIDE RECORDS SUMMARY | 2021-10-03 11:07 | XMS_ITS | Encounter Summary ---
:1960 Author Organization [facility] [place] [address] Care Team Providers Name Role Phone Roshan Guo Primary Care Provider Reason for Visit Reason Onset Date Comments Other 04/16/2021 PCP? Encounter Details Date Type Department Care Team Description 04/16/2021 Telephone Internal Medicine at [facility] Roshan Guo PA Other (PCP?) [facility] [place] [id number] INTERNAL MEDICINE [phone] [place], [place] [address] (Wo rk) Social History Tobacco Use Types Packs/Day Years Used Date Current Every Day Smoker Cigarettes 0.5 32 Sta rted: 02/06/1976 Smokeless Tobacco: Never Used Comments: nonsmoker for about 10 years f rom '76 on Alcohol Use Standard Drinks/Week Comments Yes 6 (1 standard drink = 0.6 oz pure alcoho l) Alcohol Habits Answer Date Recorded How often do you have a drink containing alcohol? 2-4 times a month 01/29/2018 How many drinks containing alcohol do you have on a 5 or 6 01/29/2018 typical day when you are drinking? How often do you have six or more drinks on one Less than mo nthly 01/29/2018 occasion? Comment: Not asked Physical Activity Answer Date Recorded On average, how many days per week do you engage in moderate 5 days 05/18/2020 to strenuous exercise (like walking fast, running, jogging, dancing, swimming, biking, or other activities that cause a light or heavy sweat)? On average, how many minutes do you engage in exercise at No t asked this level? Financial Resource Strain Answer Date Recorded How hard is it for you to pay for the very basics like food, Very hard 05/18/2020 housing, medical care, and heating? Food Insecurity Answer Date Recorded Within the past 12 months, you worried that your food would Never true 05/18/2020 run out before you got money to buy more. Within the past 12 months, the food you bought just didn't N ever true 05/18/2020 last and you didn't have money to get more. Transportation Needs Answer Date Recorded In the past 12 months, has lack of transportation kept you N o 05/18/2020 from medical appointments or from getting medications? In the past 12 months, has lack of transportation kept you N ot asked from meetings, work, or getting things needed for daily living? Housing Stability Answer Date Recorded In the last 12 months, was there a time when you were not ab le No 05/18/2020 to pay the mortgage or rent on time? In the last 12 months, how many places have you lived? 1 05/18/2020 In the last 12 months, was there a time when you did not hav e a No 05/18/[address] or slept in a snf (including now)? Sex Assigned at Date Recorded Not on file documented as of this encounter Miscellaneous Notes Telephone Encounter - Dee Dee Ferreira - 04/16/2021 11:51 AM EST Message: Patient needs to know who his new PCP, he does not want to continue with Roshan Guo in [place], he needs the name for his insurance because he has a colonoscopy on 04/23/21. Please call the patient TRACEY who is new provider is. Ask caller their first and last name and relationship to the patient: self Best time to call back: any Ok to leave a message: y Ok to send my- message: y Offered Appointment: john ZULETA/Nurse/[place] contacted via: Message: y Call: juana Pager: n documented in this encounter Plan of Treatment Not on filedocumented as of this encounter Visit Diagnoses Not on filedocumented in this encounter Care Teams Overnight Houseperson Relationship Specialty Start Date End Date Roshan Guo PA PCP - General 11/02/20 09/19/21 [facility] [place] [address] documented as of this encounter
--- OUTSIDE RECORDS SUMMARY | 2021-10-03 11:07 | XMS_ITS | Encounter Summary ---
:1960 Author Organization [facility] Address [address] [place] [address] Care Team Providers Name Role Phone Roshan Guo Primary Care Provider Reason for Visit Auth/Cert Specialty Diagnoses / Procedures Referred By Contact Refer red To Contact Diagnoses Inflammatory polyps of colon without complications Diverticulosis of large intestine without perforation or abscess without bleeding 1 YR FOLLOW UP POLYPS Procedures PRO COLONOSCOPY, DIAGNOSTIC PRO ANESTH, LWR INTESTINE, NOS PRO ANESTH, LWR INTESTINE, SCREENING COLONOSCOPY COLONOSCOPY, DIAGNOSTIC Referral ID Status Reason Start Date Expiration Date Visits Requ ested Visits Authorized [id number] 1 1 Encounter Details Date Type Department Care Team Description 04/23/[address] [facility] Barbara Garcia MD COLONOSCOPY, [facility] Genoveva mcpherson [facility] POLYPECTOMY, [place] [address] ([facility] [phone] GASTROENEROLOGY 4.67) [place], [place] [address] Social History Tobacco Use Types Packs/Day Years [...] place to sleep or slept in a detention (including now)? Sex Assigned at Date Recorded Not on file documented as of this encounter Last Filed Vital Signs Vital Sign Reading Time Taken Comments Blood Pressure 122/78 04/23/2021 8:40 AM EST Pulse 86 04/23/2021 8:30 AM EST Temperature 36.6 ??C (97.9 ??F) 04/23/2021 7:34 AM EST Respiratory Rate 18 04/23/2021 8:40 AM EST Oxygen Saturation 96% 04/23/2021 8:45 AM EST Inhaled Oxygen Concentration - - Weight 84.8 kg (187 lb) 04/23/2021 7:34 AM EST Height 172.7 cm (5' 8) 04/23/2021 7:34 AM EST Body Mass Index 28.43 04/23/2021 7:34 AM EST documented in this encounter Discharge Instructions Discharge Nash Garcia RN - 04/23/2021 8:36 AM EST Colonoscopy: What to Expect at Home Your Recovery Your doctor will talk to you about when you will need your next colonoscopy. Your doctor can help you decide how often you need to be checked. This will depend on the results of your test and your riskfor colorectal cancer. After the test, you may be bloated or have gas pains. You may need to pass gas. If a biopsy was doneor a polyp was removed, you may have streaks of blood in your stool (feces) for a few days. Problemssuch as heavy rectal bleeding may not occur until several weeks after the test. This isn't common. But it can happen after polyps are removed. This care sheet gives you a general idea about how long it will take for you to recover. But each person recovers at a different pace. Follow the steps below to get better as quickly as possible. How can you care for yourself at home? Activity Rest when you feel tired. ?? You can do your normal activities when it feels okay to do so. Diet ?? Follow your doctor's directions for eating. ?? Unless your doctor has told you not to, drink plenty of fluids. This helps to replace the fluidsthat were lost during the colon prep. ?? Do not drink alcohol. Medicines ?? Your doctor will tell you if and when you can restart your medicines. He or she will also give you instructions about taking any new medicines. ?? If you take blood thinners, such as warfarin (Coumadin), clopidogrel (Plavix), or aspirin, be sure to talk to your doctor. He or she will tell you if and when to start taking those medicines again.Make sure that you understand exactly what your doctor wants you to do. ?? If polyps were removed or a biopsy was done during the test, your doctor may tell you not to take aspirin or other anti-inflammatory medicines for a few days. These include ibuprofen (Advil, Motrin) and naproxen (Aleve). Other instructions ?? For your safety, do not drive or operate machinery until the medicine wears off and you can think clearly. Your doctor may tell you not to drive or operate machinery until the day after your test. ?? Do not sign legal documents or make major decisions until the medicine wears off and you can think clearly. The anesthesia can make it hard for you to fully understand what you are agreeing to. Additional Information for Sedation Patients For patients who received sedation: ?? You may have received medications before and/or during your procedure which effects your judgement and reaction time. ?? Do not drive, operate machinery, drink alcoholic beverages or make important decisions for 24 hours. ?? Be careful on stairs as you may be unsteady on your feet. ?? You may eat a regular diet as tolerated. ?? Do not smoke if you are alone. ?? IV site: Slight redness or tenderness is normal, you can use a warm compress if you would like. If tenderness and/or redness increase or if foul drainage occurs, please contact your Doctor. Please call [phone] before 8pm Mon-Fri with problems, questions or concerns. If you call after 8pm or on weekends, call the Hospital at [phone] and ask to speak to the Technical Product Manager front end software developer and the shingle shearing machine operator will contact that person for you. When should you call for help? Call [phone] anytime you think you may need emergency care. For example, call if: ?? You passed out (lost consciousness). ?? You pass maroon or bloody stools. ?? You have trouble breathing. Call your doctor now or seek immediate medical care if: ?? You have pain that does not get better after you take pain medicine. ?? You are sick to your stomach or cannot drink fluids. ?? You have new or worse belly pain. ?? You have blood in your stools. ?? You have a fever. ?? You cannot pass stools or gas. Watch closely for changes in your health, and be sure to contact your doctor if you have any problems. Where can you learn more? [facility] View your After Visit Summary and more online at [email or web address] If you would like to provide feedback about your hospital experience, please call the Office of Patient and Family Relations at . If you have received this After Visit Summary in error, please immediately return it in person to the department, or notify the [facility] Privacy Office by calling toll free at between the hours of 8AM and 5PM to arrange for our retrieval of the documents at no cost to you. Content Version: 12.2 ?? [id number] [employer]. Care instructions adapted under license by [facility]. If you have questions about a medical condition or this instruction, always ask your healthcare professional. [employer] disclaims any warranty or liability for your use of this information. documented in this encounter Medications at Time of Discharge Medication Sig Dispensed Refills Start Date End Date aspirin EC 81 mg Tablet, 0 09/12/2019 Delayed Release (E.C.) atorvastatin (Lipitor) 20 0 09/12/2019 mg Tablet EPINEPHrine 0.3 mg/0.3 mL 0 09/12/2019 Auto-Injector psyllium husk 0.4 gram Twice a day 0 09/11/2019 Capsule nitroGLYcerin (Nitrostat) 0 09/12/2019 0.4 mg Tablet, Sublingual lisinopriL Take 1 tablet by 90 tablet 3 08/02/2020 07/11/19 22 (Prinivil;Zestril) 20 mg mouth daily. TabletIndications: Hypertension, unspecified type omeprazole (PRILOSEC) 10 Take 10 mg by mouth 0 09/20/2021 mg Capsule, Delayed daily as needed. Release(E.C.) documented as of this encounter H&P Notes Barbara Garcia MD - 04/23/2021 7:57 AM EST Patient Name: Fly Rm Patient Age: 60 y.o. Birthdate: 1960 Admit date: 04/23/2021 Attending Physician: Barbara Garcia MD Gastroenterology and Hepatology Pre-Procedure History and Physical Exam Procedure: Colonoscopy: Indication: surveillance for prior colon polyps 2019, one sigmoid polyp was TVA with HGD Patient Active Problem List Diagnosis Code ??? Cigarette smoker F17.210 ??? Hypertension I10 ??? Elevated cholesterol E78.00 ??? Gastroesophageal reflux disease without esophagitis K21.9 ??? Diverticulosis of large intestine without perforation or abscess without bleeding K57.30 ??? Inflammatory polyps of colon K51.40 ??? History of cardiac catheterization Z98.890 ??? ST segment depression R94.31 EXAM: HEENT: Airway examined, oropharynx clear Mallampati Score: 2 LUNGS: Clear to auscultation HEART: Regular rate and rhythm, normal S1, S2 ABDOMEN: Normal bowel sounds, soft, non tender, non distended A/P Proceed with the planned endoscopic procedure. ASA 2 - Patient with mild systemic disease with no functional limitations Sedation Plan: moderate (conscious sedation) Risks and benefits of the procedure explained to the patient in detail. Consent signed. documented in this encounter Miscellaneous Notes Op Note - Barbara Garcia MD - 04/23/2021 8:[address] [facility] Procedure Note Patient Name: Fly Rm : [id number] MR#: [id number] Case Date: 04/23/2021 Surgeon: Surgeon(s) and Role: * Barbara Garcia MD - Primary Preoperative diagnosis: 1 YR FOLLOW UP POLYPS Findings: See Provation note for details of procedure. documented in this encounter Plan of Treatment Not on filedocumented as of this encounter Procedures Procedure Name Priority Date/Time Associated Comments Diagnosis SURGICAL PATHOLOGY Routine 04/23/2021 8:29 AM Res ults for this REPORT EST procedure are i n the results section. SPECIMEN TO PATHOLOGY Routine 04/23/2021 8:29 AM Results for this EST procedure are i n the results section. COLONOSCOPY, 04/23/2021 8:01 AM 1 YR FOLLOW UP POLYPECTOMY, REMOVAL EST POLYPS LESION BY SNARE ([facility]VU 4.67) COLONOSCOPY Routine 04/23/2021 7:40 AM Results f or this EST procedure are i n the results section. documented in this encounter Results Surgical Pathology Report (04/23/2021 8:29 AM EST) Component Value Ref Test Analysis Performed At [facility] gist Range Method Time Signature Surgical [id number] ? Location: 4T; EA07; [facility] Report The signing pathologist has (i) examined the relevant preparation(s) for the [facility] specimen(s) and (ii) rendered or confirmed the diagnosis(es) . HOSPITAL LABORATORY . ?Surgic al Pathology DIAGNOSIS A - Rectosigmoid polyps x 2, resection: Tubulovillous adenoma. Hyperplastic polyp. Electronically signed by: ?Karol Roche MD Verified: ??04/29/2021 17:28 ??Pathologist Performed at: ??-[facility] Dept. of Pathology, [place], [place] SPECIMEN(S) SUBMITTED A - Rectosigmoid polyps x 2, resection (2) CLINICAL INFORMATION History of colon polyps SPECIMEN PROCESSING A - Labeled/Fixative: Rectosigmoid polyps x2, formalin. Quantity/Size: ??Two, 0.5-0.6 cm. Tissue Description: Apris-pink polyps. Sections/Processing: Entirely submitted in 2 cassettes as follows: ?A1: ??Single polyp; inked and trisected ?A2: ??Single polyp; inked and trisected ??martha Specimen (Source) Anatomical Collection Method Collection Time Re ceived Time Location / / Volume Laterality 04/23/2021 8:29 AM EST Barbara Garcia MD PATHOLOGY/CYTOLOGY ORDERABLE S Performing Organization Address City/State/[place] [address] [facility] [address] Specimen to Pathology (04/23/2021 8:29 AM EST) Specimen Anatomical Collection Method Collection Time Receive d Time (Source) Location / / Volume Laterality AP Specimen 04/23/2021 8:29 AM 8:29 EST AM EST Narrative [facility] - 04/23/2021 8:29 AM EST Specimen requisition ordered. ??Separate Pathology report to follow Barbara Garcia MD PATHOLOGY/CYTOLOGY ORDERABLE S Performing Organization Address [facility] [place] [address] COLONOSCOPY (04/23/2021 7:40 AM EST) [facility] Method Time Signature COLONOSCOPY [facility] Endoscopy Procedure Date: 04/23/2021 7:40 AM ? Patient Name: Fly Rm ? N: [id number] ? Date of : 1960 ? Age: 60 ? Order #: [id number] ? Instrument Name: LOANER SCOPE ? Procedure: ? Colonoscopy Indications: ? Surveillance: Personal history of ? adenomatous polyps on last ? colonoscopy 3 years ago, leonardo r ? sigmoid TVA with HGD Providers: ? Ambrose Jenkins ? Madelaine Kelly, ? Reservation Sales Agent Referring : ?Rupal Howard ? MD Evelina, Mehreen white Medicines: ? Fentanyl 150 micrograms IV, Midazo nickerson ? 4 mg IV Complications: ? No immediate complications. Estimate d ? blood loss: Minimal. Procedure: ? Pre-Anesthesia Assessment: ? - Prior to the procedure, a H istory ? and Physical was performed, a nd ? patient medications, allergie s and ? sensitivities were reviewed. The ? patient's tolerance of previo us ? anesthesia was reviewed. ? - The risks and benefits of t he ? procedure and the sedation op tions ? and risks were discussed with the ? patient. All questions were a nswered ? and informed consent was obta ined. ? - ASA Grade Assessment: II - A ? patient with mild systemic di sease. ? - The anesthesia plan was to use ? moderate sedation/analgesia ? (conscious sedation). ? The procedure, indications, b enefits, ? risks and alternatives were e xplained ? to the patient. Specifically ? discussed were potential ? complications including, but not ? limited to, bleeding, perfora tion, ? infection, missing a cancer, and ? adverse medication reactions. The ? patient was placed in the lef t ? lateral decubitus position, a nd a ? digital rectal exam was perfo rmed. ? The was inserted in the anus and ? under direct visualization, a dvanced ? to the terminal ileum, with ? identification of the appendi ceal ? orifice and IC valve. Careful ? inspection was made as the ? colonoscope was withdrawn. Th e ? colonoscopy was performed ac fierro. ? The patient tolerated the pro cedure ? well. The quality of the ruddy l ? preparation was evaluated usi ng the ? BBPS ([place] Bowel Preparatio n Scale) ? with scores of: Right Colon = 3, ? Transverse Colon = 3 and Left Colon = ? 3 (entire mucosa seen well wi th no ? residual staining, small frag ments of ? stool or opaque liquid). The total ? BBPS score equals 9. The qual ity of ? the bowel preparation was exc ellent. ? Findings: ? The perianal and digital rectal examinations were ? normal. ? Two sessile polyps were found in the recto-sigmoid ? colon. The polyps were 2 to 6 mm in size. These ? polyps were removed with a cold snare. Resection and ? retrieval were complete. Verification of patient ? identification for the specimen was done by the ? physician and nurse using the patient's name and ? date. Estimated blood loss was minimal. ? The exam was otherwise normal throughout the examined ? colon. ? The terminal ileum appeared normal. ? Non-bleeding external and internal hemorrhoids were ? found during retroflexion. The hemorrhoids were small . ? Moderate Sedation: ? Moderate (conscious) sedation was administered by the ? endoscopy nurse and supervised by the endoscopist. ? The patient's oxygen saturation, heart rate, blood ? pressure and response to care were monitored. Impression: ?- Two 2 to 6 mm polyps at the ? recto-sigmoid colon, removed with a ? cold snare. Resected and retr ieved. ? - The examined portion of the ileum ? was normal. ? - Non-bleeding external and i nternal ? hemorrhoids. Recommendation: ?- Patient has a contact number ? available for emergencies. Th e signs ? and symptoms of potential del ayed ? complications were discussed with the ? patient. Return to normal act ivities ? tomorrow. Written discharge ? instructions were provided to the ? patient. ? - Discharge patient to home ? (ambulatory). ? - Await pathology results. ? - Repeat colonoscopy in 3 - 5 years ? for surveillance based on pat richie ? results (3 years if any HGD s een on ? path, 5 years if adenomas wit hout ? dysplasia). ? - Return to referring trixiei an. ? Attending Participation: ? I personally performed the entire procedure. ? Neej Madeleine Garcia, 04/23/2021 8:34:56 AM Number of Addenda: 0 Note Initiated On: 04/23/2021 7:40 AM Specimen (Source) Anatomical Collection Method Collection Time Re ceived Time Location / / Volume Laterality 04/23/2021 7:40 AM EST Mehreen Ayala MD GENERAL SURGICAL ORDERABLES Performing Organization Address City/State/ZIP Code Phon e Number [employer] documented in this encounter Visit Diagnoses Not on filedocumented in this encounter Administered Medications Inactive Administered Medications - up to 3 most recent administrations Medication Order MAR Action Action Date Dose Rate Site fentaNYL (pf) (50 mcg/mL) Given 04/23/2021 8:09 AM EST 50 mcg multi-dose injection ONCE PRN, Starting on Fri04/23/21 at 0803, Until Fri04/23/21 at 1113, Intra-Operative (Intra-Procedure), Routine Given 04/23/2021 8:06 AM EST 50 mcg Given 04/23/2021 8:03 AM EST 50 mcg lactated ringers infusion New Bag 04/23/2021 7:52 AM EST 100 mL/hr 100 mL/hr 100 mL/hr, Intravenous, CONTINUOUS, Starting on Fri04/23/21 at 0745, Until Fri04/23/21 at 1113, Endoscopy (Day of Procedure) midazolam (pf) (Versed) (1 mg/mL) multi-dose Given 04/23/2021 8: 12 AM EST 1 mg injection ONCE PRN, Starting on Fri04/23/21 at 0803, Until Fri04/23/21 at 1113, Intra-Operative (Intra-Procedure), Routine Given 04/23/2021 8:09 AM EST 1 mg Given 04/23/2021 8:06 AM EST 1 mg documented in this encounter Active and Recently Administered Medications Times are shown in EST. Continuous Medication Order 04/21/2021 04/22/2021 04/23/2021 lactated ringers infusion 0752 ( New Bag - Provider: Shantelle Verdugo RN) 100 mL/hr, Intravenous, CONTINUOUS, Star ting on Fri04/23/21 at 0745, Until Fri04/23/21 at 1113, Endoscopy (Day of Procedure) PRN Medication Order 04/21/2021 04/22/2021 04/23/2021 fentaNYL (pf) (50 mcg/mL) multi-dose injection (CANCELED) 0803 (Given - Provider: Ambrose Kelly RN)0806 (Given - Provider: Ambrose Kelly RN)0809 (Given - Provider: Ambrose Kelly, SUZANNA) ONCE PRN, Starting on Fri04/23/21 at 080 3, Until Fri04/23/21 at 1113, Intra- Operative (Intra-Procedure), Routine midazolam (pf) (Versed) (1 mg/mL) multi-dose injection (CANCELED ) 0803 (Given - Provider: Ambrose Kelly RN)0806 (Given - Provider: Ambrose Kelly RN)0809 (Given - Provider: Christopher O Robin, RN)0812 (Given - Provider: Ambrose Kelly, SUZANNA) ONCE PRN, Starting on Fri04/23/21 at 080 3, Until Fri04/23/21 at 1113, Intra- Operative (Intra-Procedure), Routine documented in this encounter Care Teams Chairman & Ceo Relationship Specialty Start Date End Date Roshan Guo PA PCP - General 11/02/20 09/19/21 [facility] [place] [address] documented as of this encounter
--- OUTSIDE RECORDS SUMMARY | 2021-10-03 11:07 | XMS_ITS | Encounter Summary ---
:1960 Author Organization [facility] [place] [address] Care Team Providers Name Role Phone Rupal Miller APRN Primary Care Provider [phone] Reason for Referral Diagnostic Test (Routine) - Closed Specialty Diagnoses / Procedures Referred By Contact Refer red To Contact Radiology Diagnoses ST segment depression Rupal Miller, [facility] Rad Ct Scan Procedures CT Angiogram Coronary [place] [address] [place] [address] Referral ID Status Reason Start Date Expiration Date Visits V isits Requested Authorized [id number] Closed Specialty 11/02/2019 04/29/2020 1 1 Service Requested Reason for Visit Diagnostic Test (Routine) - Closed Specialty Diagnoses / Procedures Referred By Contact Refer red To Contact Radiology Diagnoses ST segment depression Rupal Miller, [facility] Rad Ct Scan Procedures CT Angiogram Coronary [place] [address] [place] [address] Referral ID Status Reason Start Date Expiration Date Visits V isits Requested Authorized [id number] Closed Specialty 11/02/2019 04/29/2020 1 1 Service Requested Encounter Details Date Type Department Care Team Description 11/04/[address] Scan at [facility] Rupal S, APR N [address] [place], [place] CENTER [address] VASCULAR SURGERY [phone] [place] [address] Social History Tobacco Use Types Packs/Day Years [...] place to sleep or slept in a senior living (including now)? Sex Assigned at Date Recorded Not on file documented as of this encounter Medications at Time of Discharge [...] lisinopriL Take 1 tablet by 90 tablet 1 11/03/2019 05/04/19 21 (Prinivil;Zestril) 20 mg mouth daily. TabletIndications: Hypertension, unspecified type omeprazole (PRILOSEC) 10 Take 10 mg by mouth 0 09/20/2021 mg Capsule, Delayed daily as needed. Release(E.C.) documented as of this encounter Plan of Treatment Not on filedocumented as of this encounter Procedures Procedure Name Priority Date/Time Associated Diagnosis Comme nts CT ANGIOGRAM Routine 11/04/2019 12:[address] segment Results for this CORONARY ARTERIES EDT depression procedure are in the results section. documented in this encounter Results CT Angiogram Coronary Arteries (11/04/2019 12:00 PM EDT) Anatomical Region Laterality Modality Cardiac Computed Tomography Specimen (Source) Anatomical Location Collection Method / Collectio n Time Received Time / Laterality Volume Impressions 11/05/2019 9:00 AM EDT Coronary calcium score of 0, consistent with no detectable calcified atherosclerotic plaque burden. Myocardial bridging along the mid LAD as described above. Thank you for letting us participate in the care of this patient. For questions regarding this report, please contact e number below. ? Narrative 11/05/2019 9:00 AM EDT EXAMINATION: CT ANGIOGRAM CORONARY ARTERIES CLINICAL HISTORY: ECG abnormal, 10yr CHD risk 10-20%, EST candidate 120 COMPARISON: None. TECHNIQUE: 3 mm thick axial contiguous s ections through the heart were obtained via ECG-gated axial mode acquisition wit hout intravenous contrast. After time bolus, 0.625 mm thick axial contiguous s ections were obtained through the heart via ECG-gated helical acquisition during intravenous administration of 95.1 cc Omnipaque 350. Post-processing was perfo rmed on an independent computer workstation including curved multiplanar reformats, coronary calcium scoring, and 3D reconstructions. FINDINGS: Coronary calcium score: Left main: ??Agatston score: 0; Volume s core: 0; Mass: 0 mg Left anterior descending: ??Agatston sco re: 0; Volume score: 0; Mass: 0 mg Left circumflex: ??Agatston score: 0; Vo lume score: 0; Mass: 0 mg Right coronary: ??Agatston score: 0; Vol ume score: 0; Mass: 0 mg TOTAL: ??Agatston score: 0; Volume score : 0; Mass: 0 mg Atherosclerotic plaque burden, based on Agatston score: No detectable calcified atherosclerotic plaque. Percentile rank, based on age, race/ethn icity, and gender: N/A Reference: Lencho RL, Cuello H, Aurelia nicholson R, et al. ??Distribution of coronary artery calcium by race, gender, and age: results from the Multi-Ethnic Study of Atherosclerosis (LANDRY). Circulation. 200 6;113(1):30-37. Coronary arteries: Left main: No demonstrable plaque or william nosis. Left anterior descending: Note is made o f myocardial bridging along the mid LAD starting shortly distal to the origin of the first diagonal branch. The myocardial bridge has a length of almost 1.5 cm and a thickness of 3-4 mm. There is associated mild luminal narrowing of the LAD. Diagonal branches: No demonstrable plaqu e or stenosis. Ramus intermedius: No demonstrable plaqu e or stenosis. Left Circumflex: No demonstrable plaque or stenosis. Obtuse marginal branches: No demonstrabl e plaque or stenosis. Right coronary: No demonstrable plaque o r stenosis. Posterior descending: No demonstrable pl aque or stenosis. Posterolateral branch: No demonstrable p laque or stenosis. Cardiac chambers: Very small anteriorly directed diverticulum or accessory appendage at the cranial anterior aspect of the left atrium (series 5, image 12). Overall size of the heart is within normal limits. No pericardial effusion. Great vessels: No significant findings. Pulmonary parenchyma, airways, pleura: N o significant findings. Upper abdomen: Incidentally noted access ory or aberrant left hepatic artery. Skeletal Structures: No significant find ings. Procedure Note Donna Burnham MD - 2019 EXAMINATION: CT ANGIOGRAM CORONARY ARTER IES CLINICAL HISTORY: ECG abnormal, 10yr CHD risk 10-20%, EST candidate 120 COMPARISON: None. TECHNIQUE: 3 mm thick axial contiguous s ections through the heart were obtained via ECG-gated axial mode acquisition wit hout intravenous contrast. After time bolus, 0.625 mm thick axial contiguous s ections were obtained through the heart via ECG-gated helical acquisition during intravenous administration of 95.1 cc Omnipaque 350. Post-processing was perfo rmed on an independent computer workstation including curved multiplanar reformats, coronary calcium scoring, and 3D reconstructions. FINDINGS: Coronary calcium score: Left main: Agatston score: 0; Volume sco re: 0; Mass: 0 mg Left anterior descending: Agatston score : 0; Volume score: 0; Mass: 0 mg Left circumflex: Agatston score: 0; Volu me score: 0; Mass: 0 mg Right coronary: Agatston score: 0; Volum e score: 0; Mass: 0 mg TOTAL: Agatston score: 0; Volume score: 0; Mass: 0 mg Atherosclerotic plaque burden, based on Agatston score: No detectable calcified atherosclerotic plaque. Percentile rank, based on age, race/ethn icity, and gender: N/A Reference: Lencho RL, Cuate H, Aurelia no R, et al. ??Distribution of coronary artery calcium by race, gender, and age: results from the Multi-Ethnic Study of Atherosclerosis (LANDRY). Circulation. 200 6;113(1):30-37. Coronary arteries: Left main: No demonstrable plaque or william nosis. Left anterior descending: Note is made o f myocardial bridging along the mid LAD starting shortly distal to the origin of the first diagonal branch. The myocardial bridge has a length of almost 1.5 cm and a thickness of 3-4 mm. There is associated mild luminal narrowing of the LAD. Diagonal branches: No demonstrable plaqu e or stenosis. Ramus intermedius: No demonstrable plaqu e or stenosis. Left Circumflex: No demonstrable plaque or stenosis. Obtuse marginal branches: No demonstrabl e plaque or stenosis. Right coronary: No demonstrable plaque o r stenosis. Posterior descending: No demonstrable pl aque or stenosis. Posterolateral branch: No demonstrable p laque or stenosis. Cardiac chambers: Very small anteriorly directed diverticulum or accessory appendage at the cranial anterior aspect of the left atrium (series 5, image 12). Overall size of the heart is within normal limits. No pericardial effusion. Great vessels: No significant findings. Pulmonary parenchyma, airways, pleura: N o significant findings. Upper abdomen: Incidentally noted access ory or aberrant left hepatic artery. Skeletal Structures: No significant find ings. IMPRESSION Coronary calcium score of 0, consistent with no detectable calcified atherosclerotic plaque burden. Myocardial bridging along the mid LAD as described above. Thank you for letting us participate in the care of this patient. For questions regarding this report, please contact e number below. Rupal Miller BARK FITTER IMG CT ORDERABLES documented in this encounter Visit Diagnoses Diagnosis ST segment depression documented in this encounter Administered Medications Inactive Administered Medications - up to 3 most recent administrations Medication Order MAR Action Action Date Dose Rate Site iohexoL (OMNIPAQUE) 350 mg/mL Given 11/04/2019 12:09 PM EDT 95 m Ls solution 0-200 mL 0-200 mL, Intravenous, ONCE PRN, 1 dose, Starting on Briana 11/04/19 at 1209, Until Briana 8/13/20 at 1209, Per Protocol, Warning Vesicant/Irritant Medication , Radiology Contrast, Routine documented in this encounter Care Teams Hair Assistant Relationship Specialty Start Date End Date Rupal Miller APRN PCP - General General Internal Medicine 01/17/17 1 [facility] [place] [address] documented as of this encounter
--- OUTSIDE RECORDS SUMMARY | 2021-10-03 11:07 | XMS_ITS | Encounter Summary ---
:1960 Author Organization [facility] [place] [address] Care Team Providers Name Role Phone Roshan [...] Expiration Date Visits Requ ested Visits Authorized [id number] 1 1 Encounter Details Date Type Department Care Team Description 04/23/2021 Hospital Encounter Gastroenterology at [facility] Barbara Garcia MD [facility] [place] [address] CENTER [phone] GASTROENEROLOGY [place], [place] [address] Social History Tobacco Use Types [...] place to sleep or slept in a custodial (including now)? Sex Assigned at Date Recorded Not on file documented as of this encounter Last Filed Vital Signs Vital Sign Reading Time Taken Comments Blood Pressure 134/94 04/23/2021 8:50 AM EST Pulse 86 04/23/2021 8:30 AM EST Temperature 36.6 ??C (97.9 ??F) 04/23/2021 7:34 AM EST Respiratory Rate 18 04/23/2021 8:50 AM EST Oxygen Saturation 97% 04/23/2021 8:55 AM EST Inhaled Oxygen Concentration - - [...] occurs, please contact your Doctor. Please call [phone] before 8pm Mon-Fri with problems, questions or concerns. If you call after 8pm or on weekends, call the Hospital at [phone] and ask to speak to the Perfect Bind Machine Operator box person and the buzzsaw operator will contact that person for you. When should you call for help? Call [phone] anytime you think you may need emergency [...] any problems. Where can you learn more? [facility] View your After Visit Summary and more online at [email or web address] If you would like to provide feedback [...] cost to you. Content Version: 12.2 ?? [id number] [employer]. Care instructions adapted under license by [facility]. If you have questions about a medical condition or this instruction, always ask your healthcare professional. [employer] disclaims any warranty or liability for your [...] Garcia MD - 04/23/2021 8:10 AM EST [facility] Procedure Note Patient Name: Fly Rm : [id number] MR#: [id number] Case Date: 04/23/2021 Surgeon: Surgeon(s) and Role: [...] Component Value Ref Test Analysis Performed At Patholo gist Range Method Time Signature Surgical [id number] ? Location: 4T; EA07; A [facility] Report The signing pathologist has (i) examined the relevant preparation(s) for the [facility] specimen(s) and (ii) rendered or confirmed the diagnosis(es) . [facility] . ?Surgic al Pathology DIAGNOSIS A - Rectosigmoid polyps x 2, resection: Tubulovillous adenoma. Hyperplastic polyp. Electronically signed by: ?Karol Roche MD Verified: ??04/29/2021 17:28 ??Pathologist Performed at: ??-[facility] Dept. of Pathology, [place], [place] SPECIMEN(S) SUBMITTED A - Rectosigmoid polyps x 2, resection (2) CLINICAL INFORMATION History of colon polyps SPECIMEN PROCESSING A - Labeled/Fixative: Rectosigmoid polyps x2, formalin. Quantity/Size: ??Two, 0.5-0.6 cm. Tissue Description: Paris-pink polyps. Sections/Processing: Entirely submitted in 2 cassettes as follows: ?A1: ??Single polyp; inked and trisected ?A2: ??Single polyp; inked and trisected ??martha Specimen (Source) Anatomical Collection Method Collection Time Re ceived Time Location / / Volume Laterality 04/23/2021 8:29 AM EST Barbara Garcia MD PATHOLOGY/CYTOLOGY ORDERABLE S Performing Organization Address City/State/[place] [address] Specimen to Pathology (04/23/2021 8:29 AM EST) Specimen Anatomical Collection Method Collection Time Receive d Time (Source) Location / / Volume Laterality AP Specimen 04/23/2021 8:29 AM 8:29 EST AM EST Narrative [facility] - 04/23/2021 8:29 AM EST Specimen requisition ordered. ??Separate Pathology report to follow Barbara Garcia MD PATHOLOGY/CYTOLOGY ORDERABLE S Performing Organization Address [facility]/[place] [address] COLONOSCOPY (04/23/2021 7:40 AM EST) [facility] Method Time Signature COLONOSCOPY [facility] Endoscopy Procedure Date: 04/23/2021 7:40 AM ? Patient Name: Fly Rm ? N: [id number] ? Date of : 1960 ? Age: 60 ? Order #: [id number] ? Instrument Name: LOANER SCOPE ? Procedure: ? Colonoscopy Indications: ? Surveillance: Personal history of ? adenomatous polyps on last ? colonoscopy 3 years ago, leonardo r ? sigmoid TVA with HGD Providers: ? Ambrose Jenkins. ? Madelaine Kelly, ? Sweat Box Attendant Referring : ?Rupal Howard. ? MD Evelina, Mehreen white Medicines: ? [...] was evaluated usi ng the ? BBPS ([place] Bowel Preparatio n Scale) ? with scores [...] ? dysplasia). ? - Return to referring physici an. ? Attending Participation: ? I personally performed the entire procedure. ? Neisabelle Garcia, 04/23/2021 8:34:56 AM Number of Addenda: [...] MAR Action Action Date Dose Rate Site lactated ringers infusion New Bag 04/23/2021 7:52 AM EST 100 mL/hr 100 mL/hr 100 mL/hr, Intravenous, CONTINUOUS, Starting on Fri04/23/21 at 0745, Until Fri04/23/21 at 1113, Endoscopy (Day of Procedure) documented in this encounter Active and Recently Administered Medications Times are shown in EST. Continuous Medication Order 04/21/2021 04/22/2021 04/23/2021 lactated ringers infusion 0752 ( New Bag - Provider: Shantelle Verdugo, SUZANNA) 100 mL/hr, Intravenous, CONTINUOUS, Star ting on Fri04/23/21 at 0745, Until Fri04/23/21 at 1113, Endoscopy (Day of Procedure) PRN Medication Order 04/21/2021 04/22/2021 04/23/2021 fentaNYL (pf) (50 mcg/mL) multi-dose injection (CANCELED) 0803 (Given - Provider: Ambrose Kelly RN)0806 (Given - Provider: Ambrose Kelly RN)0809 (Given - Provider: Ambrose Kelly RN) ONCE PRN, Starting on Fri04/23/21 at 080 3, Until Fri04/23/21 at 1113, Intra- Operative (Intra-Procedure), Routine midazolam (pf) (Versed) (1 mg/mL) multi-dose injection (CANCELED ) 0803 (Given - Provider: Ambrose Kelly RN)0806 (Given - Provider: Ambrose Kelly RN)0809 (Given - Provider: Ambrose Kelly RN)0812 (Given - Provider: Ambrose Kelly RN) ONCE PRN, Starting on Fri04/23/21 at 080 3, Until Fri04/23/21 at 1113, Intra- Operative (Intra-Procedure), Routine documented in this encounter Care Teams Email Operations Manager Relationship Specialty Start Date End Date Roshan Guo PA PCP - General 11/02/20 09/19/21 [facility] [place] [address] documented as of this encounter
--- OUTSIDE RECORDS SUMMARY | 2021-10-03 11:07 | XMS_ITS | Encounter Summary ---
:1960 Author Organization [facility] [place] [address] Care Team Providers Name Role Phone Roshan Guo Primary Care Provider Reason for Visit Reason Onset Date Comments Appointment 07/03/2021 Encounter Details Date Type Department Care Team Description 07/03/2021 Telephone Internal Medicine at [place] Roshan Marroquin PA Appointment Road [facility] [address] [facility] [place] [address] [phone] Social History Tobacco Use Types Packs/Day Years [...] place to sleep or slept in a jail (including now)? Sex Assigned at Date Recorded Not on file documented as of this encounter Miscellaneous Notes Telephone Encounter - Bal Garay - 07/03/2021 9:14 AM EDT Message: Fly had a conflict for his [facility]AT[facility] apt with Latisha Healy MD, his new PCP, on 07/06/21. This agent helped him to cancel this but did not find availability to reschedule this apt. He has enough medication for about a month, but will need to be seen to get his renewal. Please call Fly back to discuss options for this appointment. I offered a med check apt with a team foreman but Fly is hoping to still meet his new PCP. Thanks, Ask caller their first and last name and relationship to the patient: Fly Best time to call back: Any Ok to leave a message: Yes Ok to send [facility] message: Yes Offered Appointment: no availablity MA/Nurse/Nutrition Professor contacted via: Message: Yes Call: no Pager: no documented in this encounter Plan of Treatment Not on filedocumented as of this encounter Visit Diagnoses Diagnosis Hypertension, unspecified type documented in this encounter Care Teams Microfilm Duplicating Unit Supervisor Relationship Specialty Start Date End Date Roshan Guo PA PCP - General 11/02/20 09/19/21 [facility] [place] [address] documented as of this encounter
--- OUTSIDE RECORDS SUMMARY | 2021-10-03 11:07 | XMS_ITS | Encounter Summary ---
:1960 Author Organization [facility] [address] Care Team Providers Name Role Phone Rupal Miller APRN Primary Care Provider [phone] Encounter Details Date Type Department Care Team Description 10/07/2019 Telephone Internal Medicine at [facility] [place] [address] Social History Tobacco Use Types Packs/Day Years [...] place to sleep or slept in a prison (including now)? Sex Assigned at Date Recorded Not on file documented as of this encounter Miscellaneous Notes Telephone Encounter - Tierney Parsons - 10/07/2019 8:26 AM EDT Pt has been transferred to radiology to schedule CT documented in this encounter Plan of Treatment Not on filedocumented as of this encounter Visit Diagnoses Not on filedocumented in this encounter Care Teams Yarn Washer Relationship Specialty Start Date End Date Rupal Miller APRN PCP - General General Internal Medicine 01/17/17 1 [facility] [place] [address] documented as of this encounter
--- OUTSIDE RECORDS SUMMARY | 2021-10-03 11:07 | XMS_ITS | Encounter Summary ---
:1960 [place] [address] Care Team Providers Name Role Phone Rupal Miller APRN Primary Care Provider [phone] Encounter Details Date Type Department Care Team Description 11/04/2019 Laboratory Appointment Lab 3L Sailaja Cron[place] [id number] Social History Tobacco Use Types Packs/Day Years [...] place to sleep or slept in a [facility] (including now)? Sex Assigned at Date Recorded Not on file documented as of this encounter Plan of Treatment Not on filedocumented as of this encounter Procedures Procedure Name Priority Date/Time Associated Diagnosis Comme nts HC VENIPUNCTURE STAT 11/04/2019 10:13 AM Essential hyperten yanelis Results for this EDT procedure are i n the results section. documented in this encounter Results Basic Metabolic Panel (non-fasting) (11/04/2019 10:13 AM EDT) P athologist Signature Glucose Lvl 89 65 - 199 [facility] mg/dL [facility] Comment: Diabetes: >=200 mg/dL plus symp toms BUN 16 10 - 20 mg/dL [facility] Creatinine 0.91 0.80 - 1.50 mg/dL [facility] Sodium 141 135 - 145 mmol/L [facility] Potassium 4.0 3.5 - 5.0 mmol/L [facility] Comment: Please note: ??Patients with WBC >100,00 0 may have falsely elevated Potassium levels. ??For accurate Potassium quantif ication in these patients send serum separator tube (gold top) for subsequent determinations. ??Contact the Clinical Chemistry Laboratory if there are any qu estions. Chloride 106 98 - 107 mmol/L [facility] CO2 26 22 - 31 mmol/L [facility] Anion Gap 9 5 - 15 mmol/L [facility] Calcium 9.7 8.5 - 10.5 mg/dL [facility] Estimated GFR 92 >=60 mL/min/1.73 m?? [facility] Comment: The eGFR was calculated using the CKD-EP I equation. As with all creatinine based estimates of kidney function, eGFR values calculated with the CKD-EPI equation are not accurate in patients wi th acute kidney failure, extremes of body mass or the acutely ill. [email or web address] eGFR 107 >=60 mL/min/1.73 m?? [facility] Comment: The eGFR was calculated using the CKD-EP I equation. As with all creatinine based estimates of kidney function, eGFR values calculated with the CKD-EPI equation are not accurate in patients wi th acute kidney failure, extremes of body mass or the acutely ill. [email or web address] Specimen Anatomical Collection Method Collection Time Receive d Time (Source) Location / / Volume Laterality Blood specimen 11/04/2019 10:13 0 (specimen) AM EDT 10:34 AM EDT Resulting Agency Comment Spec In Lab Nidia Chatterjee MD CHEMISTRY ORDERABLES Performing Organization Address City/State/[place] [address] documented in this encounter Visit Diagnoses Diagnosis Essential hypertension Unspecified essential hypertension documented in this encounter Care Teams Dyeing Machine Tender Relationship Specialty Start Date End Date Rupal Miller APRN PCP - General General Internal Medicine 01/17/[address] [place] [address] [place] [address] documented as of this encounter
--- OUTSIDE RECORDS SUMMARY | 2021-10-03 11:07 | XMS_ITS | Encounter Summary ---
:1960 Author Organization [facility] [place] [address] Care Team Providers Name Role Phone Roshan Guo Primary Care Provider Reason for Visit Reason Onset Date Comments mFOCUS 11/25/2020 Encounter Details Date Type Department Care Team Description 11/25/2020 Patient Outreach Internal Medicine at [facility] [place] [address] Social History Tobacco Use Types Packs/Day [...] place to sleep or slept in a retirement (including now)? Sex Assigned at Date Recorded Not on file documented as of this encounter Plan of Treatment Not on filedocumented as of this encounter Visit Diagnoses Not on filedocumented in this encounter Care Teams Filter Tender Jelly Relationship Specialty Start Date End Date Roshan Guo PA PCP - General 11/02/20 09/19/21 [facility] [place] [address] documented as of this encounter
--- OUTSIDE RECORDS SUMMARY | 2021-10-03 11:07 | XMS_ITS | Encounter Summary ---
:1960 Author Organization [place] [address] Care Team Providers Name Role Phone Roshan Guo Primary Care Provider Encounter Details Date Type Department Care Team Description 02/13/2021 Telephone [place]astro[place]ology [place] [facility] [place] Isela Perez [facility] [place] [address] Social History Tobacco Use Types Packs/Day [...] place to sleep or slept in a mcc (including now)? Sex Assigned at Date Recorded Not on file documented as of this encounter Miscellaneous Notes Telephone Encounter - [place], June - 02/13/2021 9:10 AM EST Fly Rm [id number] Diagnosis/Indication: 1 yr f/u from multiple polyp removal 1. Have you ever had a/an Colonoscopy before? Yes: Date 04.05.19 If yes, did you have any problems with the procedure? No What type of sedation was used: IV Conscious Sedation 2. Do you take any blood thinners or have you been diagnosed with a bleeding disorder that increasesyour risk of bleeding with procedures? No 3. Do you have a Pacemaker or Defibrillator device? No 4. Are you a diabetic? No 5. Do you have any Allergies to Eggs, Latex or Medications? No 6. Do you take any Oral Iron Supplements (Including multi-vitamins)? No 7. Do you have a history of three or more abdominal surgeries? No 8. Have you had a problem with sedation or anesthesia? No 9. Do you use a c-pap machine or oxygen tank? Neither 10. Do you take prescription narcotic pain medications, including suboxone or methodone? No 11. Do you have a preference regarding the gender of your provider? No Preference 12. Is there any other information you would like to us to note for the provider and nursing team who will perform your case? No 13. Say to patient: You must have a responsible republican who will drive you to your procedure, stay on campus for the entire duration of your procedure, and drive you home from your procedure? *Please Verify the height and weight, and adjust if height and/or weight have changed* Estimated body mass index is 29.17 kg/m?? as calculated from the following: Height as of 05/18/20: 169.7 cm (5' 6.81). Weight as of 05/18/20: 84 kg (185 lb 3.2 oz). Age:60 y.o. documented in this encounter Plan of Treatment Not on filedocumented as of this encounter Visit Diagnoses Not on filedocumented in this encounter Care Teams Advertising Clerk Relationship Specialty Start Date End Date Roshan Guo PA PCP - General 11/02/20 09/19/21 [facility] [place] [address] documented as of this encounter
--- OUTSIDE RECORDS SUMMARY | 2021-10-03 11:07 | XMS_ITS | Encounter Summary ---
:1960 Author Organization [facility] [place] [place] [address] Care Team Providers Name Role Phone Rupal Miller APRN Primary Care Provider [phone] Encounter Details Date Type Department Care Team Description 10/02/2019 E-Consult [place] [facility] [place]ver Kaye MD ST segment depression [facility] [place] [address] CARDIOLOGY DEPT. [phone] [place], [place] [address] (Wo rk) Social History Tobacco [...] place to sleep or slept in a fci (including now)? Sex Assigned at Date Recorded Not on file documented as of this encounter Miscellaneous Notes E-Consult - Hever Kaye MD - 10/02/2019 8:43 AM EDT 1. Restatement of the question: How should I interpret a stress echo with abn ECG but normal echo findings? 2. Recommendation: This requires some judgment. Echo assessment of wall motion is generally considered more sensitive and specific for ischemia than the ECG but echo can be wrong. Given lack of symptoms and good exercisetolerance, there is no need to cath and stent him. However, I think it's more likely than not (>50% likelihood) he does have coronary disease given his age, hypertension, and smoking. A coronary CT angiogram could settle the question and provide motivation to him to pursue secondary prevention (heart healthy diet, smoking cessation, aspirin, statin). Knowing you have the disease is different than being told you have a 13% risk of an NH in the next 10 years. Ambiguous results on a stress test with imaging is an accepted indication for CCTA. It is less expensive and less risky than cath. 3. Rationale and/or evidence for recommendation: Experience and literature. 4. Contingency plan: Consultation. This eConsult is focused on the specific clinical question(s) asked by the referring clinician, is based on the clinical data available to me, the consulting physician, at the time of the request, and is furnished without benefit of a comprehensive evaluation or physical examination of the patient by me. The guidance set forth in the eConsult note will need to be interpreted in light of any clinical issues not known to me or any changes in patient status that I may not be aware of at the time of filing this eConsult. If further consultation is necessary, an in-person visit with me or another memberof our group is an option. documented in this encounter Plan of Treatment Not on filedocumented as of this encounter Visit Diagnoses Diagnosis ST segment depression documented in this encounter Care Teams Thermodynamics Engineer Relationship Specialty Start Date End Date Rupal Miller APRN PCP - General General Internal Medicine 01/17/17 1 [facility] [place] [address] documented as of this encounter
--- OUTSIDE RECORDS SUMMARY | 2021-10-03 11:07 | XMS_ITS | Clinical Summary ---
:1960 Author Organization [facility] [place] [address] Care Team Providers Name Role Phone Latisha Healy MD Primary Care Provider Allergies Active Allergy Reactions Severity Noted Date Comments Shellfish Containing Products Anaphylaxis High 01/23/2017 Medications Medication Sig Dispensed Refills Start Date End Date Status aspirin EC 81 mg Tablet, 0 09/12/2019 Active Delayed Release (E.C.) atorvastatin (Lipitor) 0 09/12/2019 Active 20 mg Tablet EPINEPHrine 0.3 mg/0.3 0 09/12/2019 Active mL Auto-Injector psyllium husk 0.4 gram Twice a day 0 09/11/2019 Active Capsule nitroGLYcerin 0 09/12/2019 Activ e (Nitrostat) 0.4 mg Tablet, Sublingual lisinopriL (Zestril) 20 Take 1 tablet by 90 tablet 3 2 Active mg TabletIndications: mouth daily. Hypertension, unspecified type Active Problems Problem Noted Date ST segment depression 10/05/2019 Overview: Noted on stress echo 10/01/[address] segment depression noted in ED visit. Echo was negative for ischemia. See econsult. Will have coronary CT angiogram. 11/05/2019 CT angiogram showed normal cor onary arteries. History of cardiac catheterization 09/22/2019 Diverticulosis of large intestine without perforation or abscess without 04/06/2019 bleeding Overview: On colo 04/05/19 descending colon Inflammatory polyps of colon 04/06/2019 Overview: On colo 04/05/19 multiple locations. For repeat 1 year. Gastroesophageal reflux disease without esophagitis Elevated cholesterol 02/05/2017 Cigarette smoker 01/23/2017 Hypertension 01/23/2017 Encounters Date Type Specialty Care Team Description 10/02/2021 Laboratory Lab Essential hyper tension; Appointment Encounter for H CV screening test for low risk patient; Elevated choles terol; Encounter for s creening for diabetes mellitus 09/20/2021 Office Visit Internal Medicine Latisha Healy r for screening for diabetes mellitus; MD Noble Essential hyper tension; Cigarette smoke r; Encounter for H CV screening test for low risk patient; Elevated choles terol from Last 3 Months Family History Medical History Relation Comments Cancer Father Kidney Disease Father father was adopted Cerebrovascular Accident Maternal Grandfather Pancreatic Cancer Mother healthy until diagno sis No Known Problems Sister 1 No Known Problems Sister 2 Other Sister 3 developmentally disa bled but on her own Thyroid Disease Sister 3 Food Allergy Son Breast Cancer Neg Hx Colorectal Cancer Neg Hx Coronary Artery Disease Neg Hx Diabetes Neg Hx Lung Cancer Neg Hx Myocardial Infarction Neg Hx Ovarian Cancer Neg Hx Prostate Cancer Neg Hx Skin Cancer Neg Hx Relation Status Comments Father (Age 82) Maternal Grandfather (Age 88) Maternal Grandmother (Age 88) Mother (Age 80) Paternal Grandfather Paternal Grandmother Sister 1 Alive Sister 2 Alive Sister 3 Alive Son Alive Social History Tobacco Use Types Packs/Day Years Used Date Current Every Day Smoker Cigarettes 0.5 32 Sta rted: 02/06/1976 Smokeless Tobacco: Never Used Tobacco Cessation: Ready to Quit: No; Co unseling Given: Yes Comments: nonsmoker for about 10 years f [...] Assigned at Date Recorded Not on file Last Filed Vital Signs Vital Sign Reading Time Taken Comments Blood Pressure 158/101 09/20/2021 2:32 PM EDT Pulse 71 09/20/2021 2:32 PM EDT Temperature 36.9 ??C (98.5 ??F) 09/20/2021 2:32 PM EDT Respiratory Rate 16 09/20/2021 2:32 PM EDT Oxygen Saturation 99% 09/20/2021 2:32 PM EDT Inhaled Oxygen Concentration - - Weight 90.4 kg (199 lb 6.4 oz) 09/20/2021 2:32 PM with boots EDT Height 172.7 cm (5' 8) 04/23/2021 7:34 AM EST Body Mass Index 30.32 04/23/2021 7:34 AM EST Plan of Treatment Health Maintenance Due Date Last Done Comments Covid-19 Vaccine (#1) 11/15/1964 Pneumococcal Vaccine: At-Risk 11/15/1965 5-64yrs (1 - PCV) Tdap adult 11/15/1978 Tetanus vaccine 11/15/1978 Zoster vaccine (1 of 2) 11/15/2009 Advance Directive 11/15/2014 Influenza (Flu) vaccine (1 of 1 - 11/22/2021 Influenza standard series) Colonoscopy 04/23/2024 04/23/2021, 04/23/2021, 04/05/2019, Additional history exists Diabetes Screening (HgbA1C or 10/02/2024 10/02/2021, 2021, Glucose) 11/04/2019, Additional history exists HIV screen Completed 02/05/2017 Hepatitis C Screening Completed 10/02/2021 Procedures Procedure Name Priority Date/Time Associated Diagnosis Comme nts DIFFERENTIAL, Routine 10/02/2021 2:05 PM Essential Results for this AUTOMATED EDT hypertension procedure are i n the results section. HEMOGRAM Routine 10/02/2021 2:05 PM Essential Results f or this EDT hypertension procedure are i n the results section. HC HEMOGLOBIN A1C Routine 10/02/2021 2:05 PM Encounter for Res ults for this EDT screening for procedure are in diabetes mellitus the result s section. LIPID PANEL (REFLEX Routine 10/02/2021 2:05 PM Elevated choles terol Results for this DIRECT LDL) EDT procedure are i n the results section. HC HEPATITIS C Routine 10/02/2021 2:05 PM Encounter for HCV Re sults for this ANTIBODY EDT screening test for procedure are in low risk patient the results section. BASIC METABOLIC PANEL Routine 10/02/2021 2:05 PM Essential Results for this (NON-FASTING) EDT hypertension procedure are in the results section. HC VENIPUNCTURE Routine 10/02/2021 2:05 PM Essential EDT hypertension from Last 3 Months Results Hemogram (10/02/2021 2:05 PM EDT) P athologist Signature WBC 5.2 4.0 - 9.5 [facility] x10(3)/[facility] LABORATORY RBC 4.91 4.58 - [facility] 5.54 [facility] x10(6)/[facility] LABORATORY Hemoglobin 15.2 13.7 - [facility] 16.5 g/dL [facility] LABORATORY Hematocrit 44.2 40.5 - [place] 48.5 % [facility] LABORATORY MCV 90.0 82.[address] [facility] 93.1 [facility] LABORATORY MCH 31.0 27.5 - [facility] 32.1 pg [facility] LABORATORY MCHC 34.4 32.0 - [place] 35.7 g/dL [facility] LABORATORY Platelets 185 145 - 357 [facility] x10(3)/[facility] LABORATORY RDWSD 41.[address] 36.[address] [facility] 45.0 [facility] LABORATORY RDWCV 12.7 11.[address] [facility] 13.8 % [facility] LABORATORY MPV 9.4 7.6 - 12.9 [facility] LABORATORY nRBC % Auto 0.0 % [facility] LABORATORY nRBC Abs Auto 0.000 0.000 - [facility] 0.000 [facility] x10(3)[facility] LABORATORY Specimen Anatomical Collection Method Collection Time Receive d Time (Source) Location / / Volume Laterality Blood 10/02/2021 2:05 PM 2 2:14 EDT PM EDT Resulting Agency Comment Spec In Lab Latisha Healy MD HEMATOLOGY ORDERABLES Performing Organization Address City/State/ZIP Code Phon e Number [place] [id number] Differential, Automated (10/02/2021 2:05 PM EDT) P athologist Signature Neutrophils % 61.4 % [facility] LABORATORY Neutr Abs (ANC) 3.23 1.70 - [place] 6.10 [facility] x10(3)[facility] LABORATORY Lymphocytes % 28.0 % [facility] LABORATORY Lymphocytes Abs 1.5 0.9 - 3.2 [facility] x10(3)/[facility] LABORATORY Monocytes % 9.0 % [facility] LABORATORY Monocyte Abs 0.5 0.3 - 0.9 [facility] x10(3)/[facility] LABORATORY Eosinophils % 1.0 % [facility] LABORATORY Eosinophils Abs 0.0 0.0 - 0.4 [facility] x10(3)/[facility] LABORATORY Basophils % 0.6 % [facility] LABORATORY Basophils Abs 0.0 0.0 - 0.1 [facility] x10(3)/[facility] LABORATORY Immature Gran % 0.00 % [facility] LABORATORY Comment: Immature granulocytes(IG's)percentage an d absolute count will include metamyelocytes, myelocytes, and promyelo cytes. Blood smears from CBCs yielding IG's will be scanned manually for concor dance. If this scan disagrees with the automated IG or if promyelocytes are not ed, a manual differential will be performed. Danette Gran Abs 0.00 0.00 - 0.04 x10(3)/[facility] LABORATORY Specimen Anatomical Collection Method Collection Time Receive d Time (Source) Location / / Volume Laterality Blood 10/02/2021 2:05 PM 2 2:14 EDT PM EDT Resulting Agency Comment Spec In Lab Latisha Healy MD HEMATOLOGY ORDERABLES Performing Organization Address City/[facility]/ZIP Code Phon e Number [address] Hepatitis C Antibody (10/02/2021 2:05 PM EDT) Analysis Performed At Patho logist Time Signature Hepatitis C Ab Negative Negative [facility] LABORATORY Specimen Anatomical Collection Method Collection Time Receive d Time (Source) Location / / Volume Laterality Blood 10/02/2021 2:05 PM 2 2:14 EDT PM EDT Resulting Agency Comment Spec In Lab Latisha Healy MD IMMUNOLOGY ORDERABLES Performing Organization Address City/[facility] [place] [address] Hemoglobin A1c (10/02/2021 2:05 PM EDT) P athologist Signature Hemoglobin A1C 5.2 4.3 - 5.6 [facility] LABORATORY Comment: Reference Range: 4.3 - 5.6% 5.7 - 6.4% - Increased Risk of Developin g Diabetes Mellitus >= 6.5% - Consistent with diagnosis of D iabetes Mellitus In the absence of hyperglycemia (i.e. pl asma glucose > 200 mg/dL) or classic symptoms of hyperglycemia a repeat measu rement of HbA1c should be performed on a separate sample to confirm the diagnos is. Diagnosis and Classification of Diabetes Mellitus, Diabetes Care 2013; 36: Suppl. 1, A97-91 Est Avg Gluc 103 mg/dL [place] [facility] LABORATORY Comment: eAG equivalents for HbA1c percentages: HbA1c(%) ?eAG(mg/dL) 6.0 ?126 6.5 ?140 7.0 ?154 7.5 ?169 8.0 ?183 8.5 ?197 9.0 ?212 9.5 ?226 10.0 ? 240 Limitations: The eAG calculation has not been validated on women, individuals below 18 years old and above 70 years old, and individuals with hemoglobinopathies. Additional resources are available on [facility] ADA website. Nelson TANG, William J, Hair R, et al. ??Tr anslating the A1C assay into estimated average glucose values. ??Diabetes Care 2008:31(8):0037-6453. Specimen Anatomical Collection Method Collection Time Receive d Time (Source) Location / / Volume Laterality Blood 10/02/2021 2:05 PM 2 2:14 EDT PM EDT Resulting Agency Comment Spec In Lab Latisha Healy MD CHEMISTRY ORDERABLES Performing Organization Address City/State/ZIP [place] [address] Lipid Panel (Reflex Direct LDL) (10/02/2021 2:05 PM EDT) athologist Signature Chol, Total 185 mg/dL [facility] LABORATORY Comment: Lower Risk: <200 mg/dL Average Risk: 200-239 mg/dL Higher Risk: >cw=673 mg/dL Triglycerides 261 mg/dL [facility] LABORATORY Comment: Average Risk/Lower Risk: <150 mg/dL Borderline High Risk: 150-199 mg/dL High Risk: 200-499 mg/dL Very High Risk: >nc=804 mg/dL HDL 47 mg/dL [facility] LABORATORY Comment: Males: ?? Higher Risk: <40 mg/dL Females: ?? Higher Risk: <50 mg/dL LDL Cholesterol 86 mg/dL [facility] LABORATORY Comment: Lowest Risk: <100 mg/dL Lower Risk: 100-129 mg/dL Borderline High Risk: 130-159 mg/dL High Risk: 160-189 mg/dL Very High Risk: >do=257 mg/dL Chol/HDL Ratio 3.9 ratio [facility] LABORATORY Lipid Interpretation See Note [facility] LABORATORY Comment: Lipid management should be guided by a p atient? s ASCVD risk, goals and preferences. ACC/AHA Guidelines recommend high intens ity statin if clinical ASCVD or LDL greater than or equal to 190 mg/dL. http://[employer] Hunter/TTC-KOX-Cyycxrrbt Adults aged 40-75 with LDL 70-189 mg/dL should have their 10 year ASCVD risk estimated with the ACC/AHA ASCVD risk es timator http://tools.acc.org/OIOVS-Lzjw-Wdkgnhlm r/ Statin should be discussed if risk great er than or equal to 7.5% in non-diabetics. With diabetes, moderate i ntensity statin is recommended if risk less than 7.5%, high intensity if risk g reater than or equal to 7.5%. Annual lipid monitoring on statins is no t necessary. Evaluate secondary causes of Triglycerid es greater than 500 mg/dL or LDL greater than 190 mg/dL: See table 6 of A CC/AHA Guideline. Lifestyle modification is a critical com ponent of ASCVD risk reduction. Specimen Anatomical Collection Method Collection Time Receive d Time (Source) Location / / Volume Laterality Blood 10/02/2021 2:05 PM 2 2:14 EDT PM EDT Resulting Agency Comment Spec In Lab Latisha Healy MD CHEMISTRY ORDERABLES Performing Organization Address City/State/[place] [address] Basic Metabolic Panel (non-fasting) (10/02/2021 2:05 PM EDT) P athologist Signature Glucose Lvl 100 65 - 199 [facility] mg/dL [facility] LABORATORY Comment: Diabetes: >=200 mg/dL plus symp toms BUN 15 10 - 20 mg/dL [facility] LABORATORY Creatinine 1.18 0.80 - 1.50 mg/dL [facility] LABORATORY Sodium 144 135 - 145 mmol/L [facility] LABORATORY Potassium 4.1 3.5 - 5.0 mmol/L [facility] LABORATORY Comment: Please note: ??Patients with WBC >100,00 0 may have falsely elevated Potassium levels. ??For accurate Potassium quantif ication in these patients send serum separator tube (gold top) for subsequent determinations. ??Contact the Clinical Chemistry Laboratory if there are any qu estions. Chloride 107 98 - 107 mmol/L [facility] LABORATORY CO2 30 22 - 31 mmol/L [facility] LABORATORY Anion Gap 7 5 - 15 mmol/L [facility] LABORATORY Calcium 9.7 8.5 - 10.5 mg/dL [facility] LABORATORY Estimated GFR 70 >=60 mL/min/1.73 m?? [facility] LABORATORY Comment: This patient's estimated GFR was calcula michelle using the 2020 CKD-EPI equation. The estimated GFR can vary from the richi ured GFR by up to 30% in the absence of rapidly changing kidney function. Assess ment of the estimated GFR is not appropriate when creatinine concentratio ns are rapidly changing. For clinical situations in which a more precise estim ate of GFR is necessary, consider alternative methods of GFR estimation barrett ch as a 24-hour urine creatinine clearance. Assignment of CKD stage 1-5 for patients with an eGFR near the transition point between stages may be based on clinical assessment of muscle mass and symptoms in addition to eGFR. Specimen Anatomical Collection Method Collection Time Receive d Time (Source) Location / / Volume Laterality Blood 10/02/2021 2:05 PM 2:14 EDT PM EDT Resulting Agency Comment Spec In Lab Latisha Healy MD CHEMISTRY ORDERABLES Performing Organization Address City/State/[place] [address] from Last 3 Months Insurance Payer Benefit Plan Subscriber ID Effective Dates Phone Address Type / Group [employer] [facility] [id number] 2021-Presen [phone] [address] [facility] [id number] Care Teams Experimental Rocket Sled Mechanic Relationship Specialty Start Date End Date Latisha Healy MD PCP - General General Internal Medicine 09/20/21 [facility] [place] [address]
--- OUTSIDE RECORDS SUMMARY | 2021-10-03 11:07 | XMS_ITS | Encounter Summary ---
:1960 Author Organization [facility] Address [address] [place] [address] Care Team Providers Name Role Phone Rupal Miller APRN Primary Care Provider [phone] Reason for Visit Reason Onset Date Comments Medication Problem 11/03/2019 Encounter Details Date Type Department Care Team Description 11/03/2019 Refill Internal Medicine at [facility] Aleisha Helms Hypertension, unspecified [address] [place] [address] Social History Tobacco Use Types Packs/Day Years [...] place to sleep or slept in a intermediate (including now)? Sex Assigned at Date Recorded Not on file documented as of this encounter Miscellaneous Notes Telephone Encounter - Aleisha Helms - 11/03/2019 1:39 PM EDT Pharmacy or caller: patient Medication: lisinopril (PRINIVIL;ZESTRIL) 10 mg Tablet Message: PCP increased pt dose from 10mg to 20mg at 09/22/19 OV. Pt needs new rx sent to pharmacy. Pt can't get a refill because pharmacy states pt is asking for refill too soon. Please send new rx as soon as you can. Pt uses [facility]. Did you contact your pharmacy?: yes documented in this encounter Plan of Treatment Not on filedocumented as of this encounter Visit Diagnoses Diagnosis Hypertension, unspecified type documented in this encounter Care Teams Data Reporting Analyst Relationship Specialty Start Date End Date Rupal Miller APRN PCP - General General Internal Medicine 01/17/17 1 [facility] [address] documented as of this encounter
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
--- OUTSIDE RECORDS SUMMARY | 2021-10-03 11:07 | XMS_ITS | Encounter Summary ---
:1960 Author Organization [facility] [place] [address] Care Team Providers Name Role Phone Rupal Miller APRN Primary Care Provider [phone] Encounter Details Date Type Department Care Team Description 02/10/2020 Telephone Internal Medicine at [facility] [place] [address] Social History Tobacco Use Types Packs/Day [...] place to sleep or slept in a penitentiary (including now)? Sex Assigned at Date Recorded Not on file documented as of this encounter Miscellaneous Notes Telephone Encounter - Kalyn Jimenez - 02/10/2020 12:45 PM EST Left message for patient to return call to re-schedule 02/10 physical exam. documented in this encounter Plan of Treatment Not on filedocumented as of this encounter Visit Diagnoses Not on filedocumented in this encounter Care Teams Butcher All Round Relationship Specialty Start Date End Date Rupal Miller APRN PCP - General General Internal Medicine 01/17/17 1 [facility] [place] [address] documented as of this encounter
--- OUTSIDE RECORDS SUMMARY | 2021-10-03 11:07 | XMS_ITS | Encounter Summary ---
:1960 Author Organization [facility] [address] Care Team Providers Name Role Phone Rupal Miller APRN Primary Care Provider [phone] Encounter Details Date Type Department Care Team Description 04/06/2020 External Results Internal Medicine at [facility] [place] [address] Social History Tobacco Use Types Packs/Day [...] place to sleep or slept in a longterm (including now)? Sex Assigned at Date Recorded Not on file documented as of this encounter Plan of Treatment Not on filedocumented as of this encounter Procedures Procedure Name Priority Date/Time Associated Diagnosis Comme nts EXTERNAL LAB RESULTS Routine 09/11/2019 Results for this procedure are i n the results section . documented in this encounter Results External Lab Results (09/11/2019) Narrative This result has an attachment that is no t available. Historical Provider CHEMISTRY ORDERABLES documented in this encounter Visit Diagnoses Not on filedocumented in this encounter Care Teams Design Center Consultant Relationship Specialty Start Date End Date Rpual Miller APRN PCP - General General Internal Medicine 01/17/17 1 [facility] [place] [address] documented as of this encounter
--- OUTSIDE RECORDS SUMMARY | 2021-10-03 11:07 | XMS_ITS | Encounter Summary ---
:1960 Author Organization [facility] [place] [address] Care Team Providers Name Role Phone Rupal Miller APRN Primary Care Provider [phone] Reason for Visit Reason Onset Date Comments Medication Refill 08/02/2020 Encounter Details Date Type Department Care Team Description 08/02/2020 Refill Internal Medicine at [facility] Mohsen Cheatham Hypertension, unspecified [facility] [place] [address] Social History Tobacco Use Types Packs/Day Years [...] place to sleep or slept in a nursing home (including now)? Sex Assigned at Date Recorded Not on file documented as of this encounter Miscellaneous Notes Telephone Encounter - Mohsen Cheatham - 08/02/2020 9:26 AM EDT Pt stated he will be out of medication Friday, hoping this can be expedited. documented in this encounter Plan of Treatment Not on filedocumented as of this encounter Visit Diagnoses Diagnosis Hypertension, unspecified type documented in this encounter Care Teams Emg Technician Relationship Specialty Start Date End Date Rupal Miller APRN PCP - General General Internal Medicine 01/17/17 1 [facility] [place] [address] documented as of this encounter
--- OUTSIDE RECORDS SUMMARY | 2021-10-03 11:07 | XMS_ITS | Encounter Summary ---
:1960 Author Organization [facility] Address [address] [place] [address] Care Team Providers Name Role Phone Rupal Miller APRN Primary Care Provider Reason for Visit Reason Comments Follow-up Encounter Details Date Type Department Care Team Description 09/22/2019 Office Visit Internal Medicine at Rupal Miller sential hypertension; [facility] ANTONY Mena Cigarette smoker; [facility] [address], [place] [facility] [address] [place] [address] [phone] Social History Tobacco Use Types Packs/Day Years [...] place to sleep or slept in a skilled nursing (including now)? Sex Assigned at Date Recorded Not on file documented as of this encounter Last Filed Vital Signs Vital Sign Reading Time Taken Comments Blood Pressure 128/77 09/22/2019 10:24 AM EDT Pulse 68 09/22/2019 10:04 AM EDT Temperature 36.7 ??C (98 ??F) 09/22/2019 10:04 AM EDT Respiratory Rate 16 09/22/2019 10:04 AM EDT Oxygen Saturation 100% 09/22/2019 10:04 AM EDT Inhaled Oxygen Concentration - - Weight 80.7 kg (178 lb) 09/22/2019 10:04 AM EDT Height 173.5 cm (5' 8.31) 09/22/2019 10:04 AM EDT Body Mass Index 26.82 09/22/2019 10:04 AM EDT documented in this encounter Progress Notes Rupal Miller, ANTONY - 09/22/2019 10:00 AM EDT Subjective: Patient ID: Fly Rm is a 58 y.o. male. Chief Complaint Patient presents with ??? Follow-up Hospitalization at [facility] 09/10-: For anaphylaxis, ST segment depression and abnormal thyroid tests. Thinks his reaction was to the fake worms he uses fishing though only known allergy to shellfish. 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 He had pricked his finger with a fish hook. The hand was itching, sw elling. Ears and tongue and back of head were itchy. Then he started feeling bad, hot and had visionchanges. Had hives on arms while in the truck to the ED. A friend drove him. Has appt for stress echo 09/30. Denies CP, SOB, sweatiness, dizziness, nausea. Still doing his treadmill exercise daily. Still taking asprin 81 mg daily but did not start the statin. He is scared of the side effects of the medication and wants to see what his stress test shows. HTN: Takes lisinopril 10 mg daily. BPs at home are anywhere from 120s-130s/low 80s. Smoking: Still at half pack/day and not interested in quitting. Review of Systems Constitutional: Negative for chills, diaphoresis and fever. HENT: Negative. Respiratory: Negative for shortness of breath. Cardiovascular: Negative for chest pain and palpitations. Gastrointestinal: Negative for abdominal pain, blood in stool, nausea and vomiting. Genitourinary: Negative for hematuria. Skin: Negative for rash. Neurological: Negative for dizziness, weakness and light-headedness. Psychiatric/Behavioral: Negative for dysphoric mood. The patient is not nervous/anxious. Medications 09/22/19 1019 Medication Sig Taking? psyllium husk 0.4 gram Capsule Twice a day Yes lisinopril (PRINIVIL;ZESTRIL) 10 mg Tablet Take 1 tablet by mouth daily. Yes aspirin EC 81 mg Tablet, Delayed Release (E.C.) atorvastatin (Lipitor) 20 mg Tablet EPINEPHrine 0.3 mg/0.3 mL Auto-Injector nitroGLYcerin (Nitrostat) 0.4 mg Tablet, Sublingual omeprazole (PRILOSEC) 10 mg Capsule, Delayed Release(E.C.) Take 10 mg by mouth daily as needed. Objective: Visit Vitals BP 153/87 (BP Location (NBP): Right arm, Patient Position: Sitting, BP Cuff Sizes: Adult (25-34 cm)) Pulse 68 Temp 36.7 ??C (98 ??F) (Oral) Resp 16 Ht 173.5 cm (5' 8.31) Wt 80.7 kg (178 lb) SpO2 100% BMI 26.82 kg/m?? BP recheck 128/77 R arm with manual cuff Patient reported measures: Pain: Physical Health: Fall: No flowsheet data found. Wt Readings from Last 3 Encounters: 09/22/19 80.7 kg (178 lb) 02/05/19 88 kg (194 lb) 01/29/18 84.2 kg (185 lb 9.6 oz) Physical Exam Vitals signs reviewed. Constitutional: General: He is not in acute distress. Appearance: Normal appearance. He is normal weight. He is not ill-appearing. HENT: Head: Normocephalic and atraumatic. Nose: Comments: Mouth and nose covered by mask. Eyes: General: Right eye: No discharge. Left eye: No discharge. Conjunctiva/sclera: Conjunctivae normal. Neck: Musculoskeletal: Normal range of motion. Cardiovascular: Rate and Rhythm: Normal rate and regular rhythm. Pulses: Normal pulses. Heart sounds: No murmur. Pulmonary: Effort: Pulmonary effort is normal. Breath sounds: Normal breath sounds. No wheezing or rales. Skin: General: Skin is warm and dry. Neurological: Mental Status: He is alert and oriented to person, place, and time. Psychiatric: Mood and Affect: Mood normal. Behavior: Behavior normal. Lab Results Component Value Date TSH 1.10 09/22/2019 Free T4 1.11 ng/dL Lipid Panel Lab Results Component Value Date CHLPL 168 02/05/2019 HDL 48 02/05/2019 CHOLHDL 3.5 02/05/2019 TRIG 98 02/05/2019 LDLCHOL 100 02/05/2019 The 10-year ASCVD risk score ([place] VIERA Jr., et al., 2013) is: 13.2% Values used to calculate the score: Age: 58 years Sex: Male Is Non- : No Diabetic: No Tobacco smoker: Yes Systolic Blood Pressure: 128 mmHg Is BP treated: Yes HDL Cholesterol: 48 mg/dL Total Cholesterol: 168 mg/dL Assessment and Plan: 1. Essential hypertension Recommended increase of lisinopril to 1.5 tabs (15 mg), then maybe to 2 tabs (20 mg) and monitor BP.Send in at least 6 readings with dosage noted and we can likely get SBP <120. Cautioned re light headedness while adjusting. 2. Cigarette smoker Encouraged to quit entirely and offered my help. He is precontemplative. 3. Elevated cholesterol Encouraged staring atorvastatin and advised risk of side effects is low. Most who are on it have no problems but he has friends who seem to say the opposite. - An After Visit Summary was given to the patient. F/U for annual in January and PRN. As noted, will try to manage BP via GetGlue messaging for now. documented in this encounter Plan of Treatment Not on filedocumented as of this encounter Visit Diagnoses Diagnosis Essential hypertension Unspecified essential hypertension Cigarette smoker Tobacco use disorder Elevated cholesterol Pure hypercholesterolemia documented in this encounter Care Teams Flight Agent Relationship Specialty Start Date End Date Rupal Miller APRN PCP - General General Internal Medicine 01/17/17 1 [facility] [place] [address] documented as of this encounter
--- OUTSIDE RECORDS SUMMARY | 2021-10-03 11:07 | XMS_ITS | Encounter Summary ---
:1960 Author Organization [facility] [address] Care Team Providers Name Role Phone Rupal Miller APRN Primary Care Provider [phone] Reason for Referral Diagnostic Test (Routine) - Closed Specialty Diagnoses / Procedures Referred By Contact Refer red To Contact Radiology Diagnoses ST segment depression Rupal Miller, [facility] Rad Ct Scan Procedures CT Angiogram Coronary Arteries GROUP LEADER [facility] [place] [address] [place] [address] Referral ID Status Reason Start Date Expiration Date Visits V isits Requested Authorized [id number] Closed Specialty 11/02/2019 04/29/2020 1 1 Service Requested Encounter Details Date Type Department Care Team Description 10/05/2019 Orders Only Internal Medicine at Rupal Miller ST segment depression [facility] S, GROUP LEADER [facility] [place] [address] VASCULAR SURGERY [phone] [place], [place] [address] Social History Tobacco Use Types [...] place to sleep or slept in a usp (including now)? Sex Assigned at Date Recorded Not on file documented as of this encounter Progress Notes Rupal Miller, ANTONY - 10/05/2019 2:38 PM EDT TC to pt to discuss stress echo result and econsult reply re discrepant findings between echo and EKG and recommendation for coronary CT angiogram. Patient asking appropriate questions and willing to schedule. Also asked about BP medication. He did increase his lisinopril to 1.5 tabs but has not checked his blood pressure. Encouraged to do so as his readings were high during testing. documented in this encounter Plan of Treatment Not on filedocumented as of this encounter Results CT Angiogram Coronary Arteries [...] report, please contact e number below. ? Electronically signed by: Donna [facility] ([phone]), at 11/05/2019 9:00 AM Narrative 11/05/2019 9:00 AM EDT EXAMINATION: CT [...] N/A Reference: Lencho RL, Cuate H, Aurelia nicholson R, et al. ??Distribution [...] please contact e number below. Rupal Miller APRN IMG CT ORDERABLES documented in this encounter Visit Diagnoses Diagnosis ST segment depression ST segment depression documented in this encounter Care Teams Lockstitcher Relationship Specialty Start Date End Date Rupal Miller APRN PCP - General General Internal Medicine 01/17/17 1 [facility] [place] [address] documented as of this encounter
--- OUTSIDE RECORDS SUMMARY | 2021-10-03 11:07 | XMS_ITS | Encounter Summary ---
:1960 Author Organization [facility] [place] [address] Care Team Providers Name Role Phone Rupal Miller APRN Primary Care Provider [phone] Encounter Details Date Type Department Care Team Description 03/30/2020 Telephone [place] Medicine [place] [facility] [place] [address] Social History Tobacco Use Types Packs/Day [...] place to sleep or slept in a fpc (including now)? Sex Assigned at Date Recorded Not on file documented as of this encounter Miscellaneous Notes Telephone Encounter - Deanne Gillette - 03/30/2020 2:53 PM EST Called pt to schedule annual left message documented in this encounter Plan of Treatment Not on filedocumented as of this encounter Visit Diagnoses Not on filedocumented in this encounter Care Teams Medical Office Rep Relationship Specialty Start Date End Date Rupal Miller APRN PCP - General General Internal Medicine 01/17/17 1 [facility] [place] [address] documented as of this encounter
--- OUTSIDE RECORDS SUMMARY | 2021-10-03 11:07 | XMS_ITS | Encounter Summary ---
:1960 Author Organization [facility] Address [address] [address] Care Team Providers Name Role Phone Latisha Healy MD Primary Care Provider Encounter Details Date Type Department Care Team Description 10/02/2021 Laboratory Appointment Lab 3L [facility] Essential hypertension; [facility] Encounter for HCV screening test for low risk patient; [facility] Elevated cholesterol; Drive Encounter for screening for [place] [address] Social History Tobacco Use Types Packs/Day Years Used Date Current Every Day Smoker Cigarettes 0.5 32 Sta rted: 02/06/1976 Smokeless Tobacco: Never Used Comments: nonsmoker for about 10 years f rom ' on Alcohol Use Standard Drinks/Week Comments Yes [...] place to sleep or slept in a assisted (including now)? Sex Assigned at Date Recorded Not on file documented as of this encounter Plan of Treatment Not on filedocumented as of this encounter Procedures Procedure Name Priority Date/Time Associated Diagnosis Comme nts HEMOGRAM Routine 10/02/2021 2:05 PM Essential Results f or this EDT hypertension procedure are i n the results section. DIFFERENTIAL, Routine 10/02/2021 2:05 PM Essential Results for this AUTOMATED EDT hypertension procedure are i n the results section. HC HEPATITIS C Routine 10/02/2021 2:05 PM Encounter for HCV Re sults for this ANTIBODY EDT screening test for procedure are in low risk patient the results section. HC VENIPUNCTURE Routine 10/02/2021 2:05 PM Essential EDT hypertension HC HEMOGLOBIN A1C Routine 10/02/2021 2:05 PM Encounter for Res ults for this EDT screening for procedure are in diabetes mellitus the result s section. LIPID PANEL (REFLEX Routine 10/02/2021 2:05 PM Elevated choles terol Results for this DIRECT LDL) EDT procedure are i n the results section. BASIC METABOLIC PANEL Routine 10/02/2021 2:05 PM Essential Results for this (NON-FASTING) EDT hypertension procedure are in the results section. documented in this encounter Results Differential, Automated (10/02/2021 2:05 PM EDT) athologist Signature Neutrophils % 61.4 % [facility] Neutr Abs (ANC) 3.23 1.70 - [facility] 6.10 [facility] x10(3)/[facility] LABORATORY Lymphocytes % 28.0 % [facility] Lymphocytes Abs 1.5 0.9 - 3.[address] [facility] x10(3)/[facility] LABORATORY Monocytes % 9.0 % [facility] Monocyte Abs 0.5 0.3 - 0.[address] [facility] x10(3)/[facility] LABORATORY Eosinophils % 1.0 % [facility] Eosinophils Abs 0.0 0.0 - 0.[address] [facility] x10(3)/[facility] LABORATORY Basophils % 0.6 % [facility] Basophils Abs 0.0 0.0 - 0.[address] [facility] x10(3)/[facility] LABORATORY Immature Gran % 0.00 % [facility] Comment: Immature granulocytes(IG's)percentage an d absolute count will include metamyelocytes, myelocytes, and promyelo cytes. Blood smears from CBCs yielding IG's will be scanned manually for concor dance. If this scan disagrees with the automated IG or if promyelocytes are not ed, a manual differential will be performed. Danette Gran Abs 0.00 0.00 - 0.04 x10(3)/[facility] LABORATORY Specimen Anatomical Collection Method Collection Time Receive d Time (Source) Location / / Volume Laterality Blood 10/02/2021 2:05 PM 2 2:14 EDT PM EDT Resulting Agency Comment Spec In Lab Latisha Healy MD HEMATOLOGY ORDERABLES Performing Organization Address City/State/[place] [address] Hemogram (10/02/2021 2:05 PM EDT) athologist Signature WBC 5.2 4.0 - 9.[address] [facility] x10(3)/[facility] LABORATORY RBC 4.91 4.58 - [place] 5.54 [facility] x10(6)/[facility] LABORATORY Hemoglobin 15.2 13.7 - [place] 16.5 g/dL [facility] Hematocrit 44.2 40.5 - [facility] 48.5 % [facility] MCV 90.0 82.9 - [facility] 93.1 [facility] LABORATORY MCH 31.0 27.5 - [place] 32.1 pg [facility] MCHC 34.4 32.0 - [place] 35.7 g/dL [facility] Platelets 185 145 - [address] [facility] x10(3)/[facility] LABORATORY RDWSD 41.9 36.0 - [facility] 45.0 [facility] LABORATORY RDWCV 12.7 11.4 - [facility] 13.8 % [facility] MPV 9.4 7.6 - 12.9 [facility] LABORATORY nRBC % Auto 0.0 % [facility] nRBC Abs Auto 0.000 0.000 - [facility] x10(3)/[facility] LABORATORY Specimen Anatomical Collection Method Collection Time Receive d Time (Source) Location / / Volume Laterality Blood 10/02/2021 2:05 PM 2 2:14 EDT PM EDT Resulting Agency Comment Spec In Lab Latisha Healy MD HEMATOLOGY ORDERABLES Performing Organization Address City/State/[place] [address] Hemoglobin A1c (10/02/2021 2:05 PM EDT) P athologist Signature Hemoglobin A1C 5.2 4.3 - 5.6 [facility] Comment: Reference Range: 4.3 [...] Mellitus, Diabetes Care 2013; 36: Suppl. 1, V96-65 Est Avg Gluc 103 mg/dL [facility] Comment: eAG equivalents for HbA1c percentages: HbA1c(%) ?eAG(mg/dL) 6.0 ?126 6.5 ?140 7.0 ?154 7.5 ?169 8.0 ?183 8.5 ?197 9.0 ?212 9.5 ?226 10.0 ? 240 Limitations: The eAG calculation has not been validated on women, individuals below 18 years old and above 70 years old, and individuals with hemoglobinopathies. Additional resources are available on [facility] ADA website. Nelson TANG, William J, Hair R, et al. ??Tr anslating the A1C assay into estimated average glucose values. ??Diabetes Care 2008:31(8):4781-2028. Specimen Anatomical Collection Method Collection Time Receive d Time (Source) Location / / Volume Laterality Blood 10/02/2021 2:05 PM 2 2:14 EDT PM EDT Resulting Agency Comment Spec In Lab Latisha Healy MD CHEMISTRY ORDERABLES Performing Organization Address City/State/[place] [address] Lipid Panel (Reflex Direct LDL) (10/02/2021 2:05 PM EDT) athologist Signature Chol, Total 185 mg/dL [facility] Comment: Lower Risk: <200 mg/dL Average Risk: 200-239 mg/dL Higher Risk: >hs=573 mg/dL Triglycerides 261 mg/dL [facility] Comment: Average Risk/Lower Risk: <150 mg/dL Borderline High Risk: 150-199 mg/dL High Risk: 200-499 mg/dL Very High Risk: >lp=845 mg/dL HDL 47 mg/dL [facility] Comment: Males: ?? Higher Risk: <40 mg/dL Females: ?? Higher Risk: <50 mg/dL LDL Cholesterol 86 mg/dL [facility] Comment: Lowest Risk: <100 mg/dL Lower Risk: 100-129 mg/dL Borderline High Risk: 130-159 mg/dL High Risk: 160-189 mg/dL Very High Risk: >xv=448 mg/dL Chol/HDL Ratio 3.9 ratio [facility] Lipid Interpretation See Note [facility] Comment: Lipid management should be guided by a p atient? s ASCVD risk, goals and preferences. ACC/AHA Guidelines recommend high intens ity statin if clinical ASCVD or LDL greater than or equal to 190 mg/dL. http://[email or web address]-AAJ-Pkwesbcfm Adults aged 40-75 with LDL 70-189 mg/dL should have their 10 year ASCVD risk estimated with the ACC/AHA ASCVD risk es timator http://tools.acc.org/EKBNU-Zbwv-Beetyoyx r/ Statin should be discussed if risk [...] Organization Address City/State/[place] [address] Hepatitis C Antibody (10/02/2021 2:05 PM EDT) Analysis Performed At Patho logist Time Signature Hepatitis C Ab Negative Negative [facility] Specimen Anatomical Collection Method Collection Time Receive d Time (Source) Location / / Volume Laterality Blood 10/02/2021 2:05 PM 2 2:14 EDT PM EDT Resulting Agency Comment Spec In Lab Latisha Healy MD IMMUNOLOGY ORDERABLES Performing Organization Address City/State/[place] [address] [facility] [address] [address] Basic Metabolic Panel (non-fasting) (10/02/2021 2:05 PM EDT) P athologist Signature Glucose Lvl 100 65 - [address] [facility] mg/dL [facility] Comment: Diabetes: >=200 mg/dL plus symp toms BUN 15 10 - 20 mg/dL [facility] Creatinine 1.18 0.80 - 1.50 mg/dL [facility] Sodium 144 135 - 145 mmol/L [facility] Potassium 4.1 3.5 - 5.0 mmol/L [facility] Comment: Please note: ??Patients with WBC >100,00 0 may have falsely elevated Potassium levels. ??For accurate Potassium quantif ication in these patients send serum separator tube (gold top) for subsequent determinations. ??Contact the Clinical Chemistry Laboratory if there are any qu estions. Chloride 107 98 - 107 mmol/L [facility] CO2 30 22 - 31 mmol/L [facility] Anion Gap 7 5 - 15 mmol/L [facility] Calcium 9.7 8.5 - 10.5 mg/dL [facility] Estimated GFR 70 >=60 mL/min/1.73 m?? [facility] Comment: This patient's estimated GFR was luis albertoula michelle using the 2020 CKD-EPI equation. The [...] Organization Address City/State/[place] [address] documented in this encounter Visit Diagnoses Diagnosis Essential hypertension Unspecified essential hypertension Encounter for HCV screening test for low risk patient Elevated cholesterol Pure hypercholesterolemia Encounter for screening for diabetes cori litus Screening for diabetes mellitus documented in this encounter Care Teams Unemployment Specialist Relationship Specialty Start Date End Date Latisha Healy MD PCP - General General Internal Medicine 09/20/21 [facility] [place] [address] documented as of this encounter
--- OUTSIDE RECORDS SUMMARY | 2021-10-03 11:07 | XMS_ITS | Encounter Summary ---
:1960 Author Organization [facility] [place] [address] Care Team Providers Name Role Phone Rupal Miller APRN Primary Care Provider [phone] Encounter Details Date Type Department Care Team Description 09/22/2019 Telephone Internal Medicine at [facility] [place] [address] Social History Tobacco Use Types Packs/Day [...] place to sleep or slept in a [place] facility (including now)? Sex Assigned at Date Recorded Not on file documented as of this encounter Miscellaneous Notes Telephone Encounter - Tierney Parsons - 09/22/2019 2:35 PM EDT Pt has been scheduled for a physical exam with pcp documented in this encounter Plan of Treatment Not on filedocumented as of this encounter Visit Diagnoses Not on filedocumented in this encounter Care Teams Automotive Glass Specialist Relationship Specialty Start Date End Date Rupal Miller APRN PCP - General General Internal Medicine 01/17/17 1 [facility] [place] [address] documented as of this encounter
--- OUTSIDE RECORDS SUMMARY | 2021-10-03 11:07 | XMS_ITS | Encounter Summary ---
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 cholesterol; [facility] Gastroesophageal reflux disease without esophagitis; [place], [place] VASCULAR SURGERY Pseudopolyposis of colon, unspecified co mplication status, unspecified part of colon; [id number] [place] Diverticulosis of large inte ibeth without perforation or abscess without bleeding; [phone] [id number] Cigarette smoker; [phone] Encounter for H CV screening test for low risk patient; (Work) Advanced directives, counseling/discussi on Social History Tobacco Use Types Packs/Day Years [...] Sign Reading Time Taken Comments Blood Pressure 140/70 05/18/2020 10:37 AM EST Pulse 79 05/18/2020 9:52 AM EST Temperature 36.8 ??C (98.2 ??F) 05/18/2020 9:52 AM EST Respiratory Rate 16 05/18/2020 9:52 AM EST Oxygen Saturation 100% 05/18/2020 9:52 AM EST Inhaled Oxygen Concentration - - Weight 84 kg (185 lb 3.2 oz) 05/18/2020 9:52 AM EST Height 169.7 cm (5' 6.81) 05/18/2020 9:52 AM EST Body Mass Index 29.17 05/18/2020 9:52 AM EST documented in this encounter Progress Notes Rahel Potter G - 05/18/2020 9:40 AM EST Subjective: Patient ID: Fly Rm is a 59 y.o. male. HPI Chief Complaint Patient presents with ??? Annual Exam no major questions or concerns HTN: Taking daily as directed however has been taking it each morning with Metamucil and read the Metamucil directions that say to avoid taking with medications as it can impair absorption. Home readings `mid 120/low 80s but doesn't check very often. No ROGERS. He worries about the diastolic being low. TOB: Smoking 0.5-0.75 ppd. Not interested in stopping or referral to smoking cessation and states Ilike it. CV: No further issues over the past year. NO CP, SOB, palpitations or cough. GERD: Stopped prilosec February 2019. Very rarely notices reflux and if he does it is directly related to what he has eaten. Doesn't take Tums or anything. No cough after eating. DIET: Stopped red meat completely for awhile but now has it rarely. B: Cereal L: whatever the lunch special is at corner store. Dinner: cereal and toast or meat/potato/veggie Ice cream frequent. 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 Likes to golf (walks with bag), walk, snow mobile, treadmill 2 miles on incline 6 over 30 min at least 4x/week. Likely hits the 150 min/week. Social History Social History Narrative Lives with Verito and son Yann (2000). Yann is at college at [employer] and doing well. Great marriage. Grew up in [place] with parents and 3 sisters. Good childhood. Has lived in [place]. Moved to this area around 2007 to run a [employer] that he bought. He sold this and is now back as [employer] there. Likesto ride his Luc, fish, dueñas, snowmobiling, golf. No dudley practice. Family History Problem Relation Age of Onset ??? Pancreatic Cancer Mother healthy until diagnosis ??? Cancer Father ??? Kidney Disease Father father was adopted ??? No Known Problems Sister ??? Cerebrovascular Accident Maternal Grandfather ??? No Known Problems Sister ??? Other Sister developmentally disabled but on her own ??? Thyroid Disease Sister ??? Food Allergy Son ??? Colorectal Cancer Neg Hx ??? Prostate Cancer Neg Hx ??? Myocardial Infarction Neg Hx ??? Diabetes Neg Hx ??? Coronary Artery Disease Neg Hx ??? Breast Cancer Neg Hx ??? Ovarian Cancer Neg Hx ??? Skin Cancer Neg Hx ??? Lung Cancer Neg Hx Allergies Allergen Reactions ??? Shellfish Containing Products Anaphylaxis Medications 10/05/19 0014 Medication Sig Taking? lisinopriL (Prinivil;Zestril) 20 mg Tablet Take 1 tablet by mouth daily. Yes psyllium husk 0.4 gram Capsule Twice a day Yes aspirin EC 81 mg Tablet, Delayed Release (E.C.) atorvastatin (Lipitor) 20 mg Tablet EPINEPHrine 0.3 mg/0.3 mL Auto-Injector nitroGLYcerin (Nitrostat) 0.4 mg Tablet, Sublingual omeprazole (PRILOSEC) 10 mg Capsule, Delayed Release(E.C.) Take 10 mg by mouth daily as needed. Review of Systems Adult Screener 05/18/2020 Schooling 12th grade Who is completing? I am (patient) Confidence Very Confident Financial Strain Very hard Food worry Never true Food inability Never true Mortgage No Places lived 1 Housing No Instruction help Never Lack companionship Hardly ever Left out Hardly ever Medical Transport No Main activity Worked for pay Legal issues No Relationship safety No Threatened No Feel like someone wants to hurt you No Contact with others No Reliable phone use Yes Phone use safe and private Yes Reliable internet access Yes Internet use safe and private Yes What kind of help? I do not need help Physical activity days 5 days General symptoms None of the above Have you recently experienced any of the following symptoms with your ears, nose, throat, mouth? None of the above Eyes None of the above Respiratory None of the above Heart None of the above GI None of the above Skin/Hair None of the above Joint/Muscle None of the above Neurological None of the above Blood/Lymph node None of the above Urinary/Genital None of the above Nervous, anxious, on edge Not at all Ability to stop or control worrying Not at all LYNDSAY-2 Score 0 (Brief screen negative) Little interest or pleasure Not at all Down, depressed or hopeless Not at all PHQ-2 Score 0 (Brief screen negative) 5 or more drinks Yes How often did you have a drink 2 to 4 times a month How many drinks on a typical day 3 to 4 drinks How often did you have 5 drinks Less than monthly Unable to stop drinking Never Failed to do what was expected Never First morning drink Never Guilt or remorse Never Unable to remember Never Self injury or injury to others No Concern about drinking No AUDIT Total Score 4 (Low Risk) Non-medical drug use No Objective: Visit Vitals BP 134/78 Pulse 79 Temp 36.8 ??C (98.2 ??F) (Oral) Resp 16 Ht 169.7 cm (5' 6.81) Wt 84 kg (185 lb 3.2 oz) SpO2 100% BMI 29.17 kg/m?? No flowsheet data found. Wt Readings from Last 3 Encounters: 09/22/19 80.7 kg (178 lb) 09/22/19 80.7 kg (178 lb) 02/05/19 88 kg (194 lb) Physical Exam Vitals and nursing note reviewed. Constitutional: Appearance: Normal appearance. He is normal weight. HENT: Head: Normocephalic and atraumatic. Nose: Comments: Mouth and nose covered by mask. Eyes: Extraocular Movements: Extraocular movements intact. Conjunctiva/sclera: Conjunctivae normal. Pupils: Pupils are equal, round, and reactive to light. Neck: Comments: Thyroid normal size, shape and consistency. Cardiovascular: Rate and Rhythm: Normal rate and regular rhythm. Pulses: Normal pulses. Heart sounds: Normal heart sounds. Pulmonary: Effort: Pulmonary effort is normal. Breath sounds: Normal breath sounds. Abdominal: General: Abdomen is flat. Bowel sounds are normal. Palpations: Abdomen is soft. Musculoskeletal: General: Normal range of motion. Cervical back: Normal range of motion and neck supple. Comments: Grossly normal ROM Skin: General: Skin is warm and dry. Neurological: Mental Status: He is alert and oriented to person, place, and time. Psychiatric: Mood and Affect: Mood normal. Behavior: Behavior normal. Thought Content: Thought content normal. Judgment: Judgment normal. Lab Results Component Value Date WBC 5.0 09/22/2019 HGB 14.8 09/22/2019 HCT 45.2 09/22/2019 MCV 92.4 09/22/2019 PLATELET 181 09/22/2019 Lab Results Component Value Date NA 141 11/04/2019 K 4.0 11/04/2019 CL 106 11/04/2019 CO2 26 11/04/2019 BUN 16 11/04/2019 CREATININE 0.91 11/04/2019 GLUCOSE 89 11/04/2019 GLUCFASTING 91 02/20/2017 CALCIUM 9.7 11/04/2019 ESTGFR 92 11/04/2019 Lab Results Component Value Date NA 141 11/04/2019 K 4.0 11/04/2019 CL 106 11/04/2019 CO2 26 11/04/2019 BUN 16 11/04/2019 CREATININE 0.91 11/04/2019 GLUCOSE 89 11/04/2019 GLUCFASTING 91 02/20/2017 CALCIUM 9.7 11/04/2019 ESTGFR 92 11/04/2019 Lipid Panel Lab Results Component Value Date CHLPL 184 (External Lab) 09/11/2019 HDL 64 (External Lab) 09/11/2019 CHOLHDL 3.5 02/05/2019 TRIG 51 (External Lab) 09/11/2019 LDLCHOL 100 02/05/2019 Assessment and Plan: Focus of visit was around preventative health. He declines recommended vaccines as he does not see aneed for them. He has not been taking Lipitor and has not interest in taking it now. We reviewed theASCVD calculation of 13.4% with recommendation to take a statin if >7 %. He agrees to re-check itat the one year augustus in August and he will think about starting a statin at that time if warranted. Heis due for a one year f/u colo based on the number of polyps removed and pathology. Order placed forthat. 1. Healthcare maintenance Health Maintenance Topic Date Due ??? Hepatitis C Screening 11/15/1977 ??? Pneumo Increased Risk (1 of 1 - PPSV23) 11/15/1978 ??? Tdap adult 11/15/1978 ??? Tetanus vaccine 11/15/1978 ??? Zoster vaccine (1 of 2) 11/15/2009 ??? Advance Directive 11/15/2014 ??? Colonoscopy Screening 04/05/2020 ??? Influenza (Flu) vaccine (1 of 1 - Influenza standard series) 09/20/2020 (Originally 11/23/2019) ??? Diabetes Screening (HgbA1C or Glucose) 11/03/2022 ??? HIV screen Completed 2. Essential hypertension- He will take more readings at home over the next several weeks and send them in via the portal. He is uncomfortable with a diastolic reading of 70 and feels that is too low. We discussed the guidelines for readings to be 120/70s to low 80s. Will discuss next check after reviewing home readings. The 10-year ASCVD risk score (T[place]aksromel VIERA Jr., et al., 2013) is: 13.4%* Values used to calculate the score: Age: 59 years Sex: Male Is Non- : No Diabetic: No Tobacco smoker: Yes Systolic Blood Pressure: 134 mmHg Is BP treated: Yes HDL Cholesterol: 64 mg/dL* Total Cholesterol: 184 mg/dL* * - Cholesterol units were assumed for this score calculation 3. Elevated cholesterol- Will recheck lipid panel in August. He will consider taking a statin. Reminded him of the DASH diet and he reports still having the literature. He continues to take Metamucil BIDwhich some literature states could help to decrease cholesterol levels. 4. Gastroesophageal reflux disease without esophagitis- Quiescent 5. Pseudopolyposis of colon, unspecified complication status, unspecified part of colon - REFERRAL TO COLONOSCOPY PROCEDURE 6. Diverticulosis of large intestine without perforation or abscess without bleeding - REFERRAL TO COLONOSCOPY PROCEDURE 7. Cigarette smoker Encouraged to quit to reduce risk of CV event or Neurovascular event. 8. Encounter for HCV screening test for low risk patient - Hepatitis C Antibody; Future 9. Advanced directives, counseling/discussion He feels he will get this done and declines referral to office of advance care planning. Dee Dee Tong CCMA - 05/18/2020 9:40 AM EST Evaluation today was performed: [] By video conference [x] In-person PPE used during in-person evaluation: [] Gloves [] Gown [] Goggles [x] Face-shield [x] Level 2 mask [] N-95 [] PAPR Rupal Miller APRN - 05/18/2020 9:40 AM EST This visit was performed jointly with student Rahel Potter The patient???s history was validated in the patient???s presence and is notable for 59 year old male here for annual exam with no concerns. I performed the full exam as documented by the student I personally reviewed all applicable documented studies and diagnostic images. Additionally my personal interpretation includes Lab Results Component Value Date NA 141 11/04/2019 K 4.0 11/04/2019 CL 106 11/04/2019 CO2 26 11/04/2019 BUN 16 11/04/2019 CREATININE 0.91 11/04/2019 GLUCOSE 89 11/04/2019 GLUCFASTING 91 02/20/2017 CALCIUM 9.7 11/04/2019 ESTGFR 92 11/04/2019 Lab Results Component Value Date ALT 13 02/05/2017 AST 14 02/05/2017 ALKPHOS 51 02/05/2017 BILITOT 0.4 02/05/2017 ALBUMIN 4.1 02/05/2017 PROT 6.7 02/05/2017 Lipid Panel Lab Results Component Value Date CHLPL 184 (External Lab) 09/11/2019 HDL 64 (External Lab) 09/11/2019 CHOLHDL 3.5 02/05/2019 TRIG 51 (External Lab) 09/11/2019 LDLCHOL 100 02/05/2019 Lab Results Component Value Date GLUCFASTING 91 02/20/2017 The 10-year ASCVD risk score (Trina VIERA Jr., et al., 2013) is: 14.4%* Values used to calculate the score: Age: 59 years Sex: Male Is Non- : No Diabetic: No Tobacco smoker: Yes Systolic Blood Pressure: 140 mmHg Is BP treated: Yes HDL Cholesterol: 64 mg/dL* Total Cholesterol: 184 mg/dL* * - Cholesterol units were assumed for this score calculation The assessment and plan was formulated at my direction, in summary 1. Healthcare maintenance Health Maintenance Topic Date Due ??? Hepatitis C Screening 11/15/1977 ??? Advance Directive 11/15/2014 ??? Colonoscopy Screening 04/05/2020 ??? Influenza (Flu) vaccine (1 of 1 - Influenza standard series) 09/20/2020 (Originally 11/23/2019) ??? Pneumo Increased Risk (1 of 1 - PPSV23) 05/18/2021 (Originally 11/15/1978) ??? Zoster vaccine (1 of 2) 05/18/2021 (Originally 11/15/2009) ??? Tdap adult 05/18/2021 (Originally 11/15/1978) ??? Tetanus vaccine 05/18/2021 (Originally 11/15/1978) ??? Diabetes Screening (HgbA1C or Glucose) 11/03/2022 ??? HIV screen Completed Encouraged continued active lifestyle and healthy weight, heart healthy diet. 2. Essential hypertension Not at goal in office but he reports better readings at home on a cuff we have checked for accuracy.Asked that he send in 6-[address] readings [address] [facility] BP flow sheet. 3. Elevated cholesterol Elevated risk for NE, CVA, VTE based on ASCVD score. Encouraged consideration of statin therapy advising any of these events could threaten not just his life but his ability to live independently. He would like recheck of pane in August and will consider whether to start at that time. - Lipid Panel (Reflex Direct LDL); Future 4. Gastroesophageal reflux disease without esophagitis quiescent 5. Pseudopolyposis of colon, unspecified complication status, unspecified part of colon - REFERRAL TO COLONOSCOPY PROCEDURE 6. Diverticulosis of large intestine without perforation or abscess without bleeding - REFERRAL TO COLONOSCOPY PROCEDURE 7. Cigarette smoker Encouraged cessation. Offered assistance. He is precontemplative. 8. Encounter for HCV screening test for low risk patient - Hepatitis C Antibody; Future 9. Advanced directives, counseling/discussion Has booklet with document and will turn it in. Evaluation today was performed: [] By video conference [x] In-person PPE used during in-person evaluation: [] Gloves [] Gown [x] Goggles [] Face-shield [x] Level 2 mask [] N-95 [] PAPR documented in this encounter Plan of Treatment Scheduled Referrals Name Type Priority Associated Diagnoses Order S chedule REFERRAL TO Outpatient Routine Pseudopolyposis of Ordered: COLONOSCOPY Referral colon, unspecified PROCEDURE complication status, unspecified part of colon Diverticulosis of large intestine without perforation or abscess without bleeding documented as of this encounter Visit Diagnoses Diagnosis Healthcare maintenance Routine general medical examination at a health care facility Essential hypertension Unspecified essential hypertension Elevated cholesterol Pure hypercholesterolemia Gastroesophageal reflux disease without esophagitis Esophageal reflux Pseudopolyposis of colon, unspecified co mplication status, unspecified part of colon Diverticulosis of large intestine withou t perforation or abscess without bleeding Diverticulosis of colon (without mention of hemorrhage) Cigarette smoker Tobacco use disorder Encounter for HCV screening test for low risk patient Advanced directives, counseling/discussi on Other specified counseling documented in this encounter Care Teams Marketing Senior Recruiter Relationship Specialty Start Date End Date Rupal Miller APRN PCP - General General Internal Medicine 01/17/17 1 [facility] [place] [address] documented as of this encounter
--- OUTSIDE RECORDS SUMMARY | 2021-10-03 11:07 | XMS_ITS | Encounter Summary ---
:1960 Author Organization [facility] [place] [address] Care Team Providers Name Role Phone Rupal Miller APRN Primary Care Provider [phone] Encounter Details Date Type Department Care Team Description 11/03/2019 [facility] [place], [place] [address] Social History Tobacco Use Types Packs/Day [...] Metabolic Panel (non-fasting) (11/04/2019 10:13 AM EDT) athologist Signature Glucose Lvl 89 65 - 199 [facility] mg/dL [facility] Comment: Diabetes: >=200 mg/dL plus symp toms BUN 16 10 - 20 mg/dL [facility] Creatinine 0.91 0.80 - 1.50 mg/dL [facility] Sodium 141 135 - 145 mmol/L [facility] Potassium 4.0 3.5 - 5.0 mmol/L [facility] Comment: Please note: ??Patients with WBC >100,00 0 may have falsely elevated Potassium levels. ??For accurate Potassium quantif ication in these patients send serum separator tube (gold top) for subsequent determinations. ??Contact the Clinical Chemistry Laboratory if there are any qu estions. Chloride 106 98 - 107 mmol/L [facility] CO2 26 22 - 31 mmol/L [facility] Anion Gap 9 5 - 15 mmol/L [facility] Calcium 9.7 8.5 - 10.5 mg/dL [facility] Estimated GFR 92 >=60 mL/min/1.73 m?? [facility] Comment: The eGFR was calculated using the CKD-EP I equation. As with all creatinine based estimates of kidney function, eGFR values calculated with the CKD-EPI equation are not accurate in patients wi th acute kidney failure, extremes of body mass or the acutely ill. http://[employer]/[facility] eGFR 107 >=60 mL/min/1.73 m?? [facility] Comment: The eGFR was calculated using the CKD-EP I equation. As with all creatinine based estimates of kidney function, eGFR values calculated with the CKD-EPI equation are not accurate in patients wi th acute kidney failure, extremes of body mass or the acutely ill. http://[employer]/[facility] Specimen Anatomical Collection Method Collection Time Receive d Time (Source) Location / / Volume Laterality Blood specimen 11/04/2019 10:13 0 (specimen) AM EDT 10:34 AM EDT Resulting Agency Comment Spec In Lab Nidia Chatterjee MD CHEMISTRY ORDERABLES Performing Organization Address City/State/ZIP Code [place] [address] documented in this encounter Visit Diagnoses Diagnosis Essential hypertension Unspecified essential hypertension documented in this encounter Care Teams Shaker Out Relationship Specialty Start Date End Date Rupal Miller APRN PCP - General General Internal Medicine 01/17/[address] [place] [address] [place] [address] documented as of this encounter
--- OUTSIDE RECORDS SUMMARY | 2021-10-03 11:07 | XMS_ITS | Encounter Summary ---
:1960 Author Organization [facility] [place] [address] Care Team Providers Name Role Phone Rupal Miller APRN Primary Care Provider [phone] Encounter Details Date Type Department Care Team Description 10/20/2019 External Results [facility] [place] [place] [address] Social History Tobacco Use Types Packs/Day [...] place to sleep or slept in a half-way (including now)? Sex Assigned at Date Recorded Not on file documented as of this encounter Plan of Treatment Not on filedocumented as of this encounter Procedures Procedure Name Priority Date/Time Associated Diagnosis Comme nts EXTERNAL LAB CBC CMP Routine 09/11/2019 Results for this THYROID RESULTS PANEL proced ure are in the results section . documented in this encounter Results (ABNORMAL) CBC / CMP / Thyroid External Results (09/11/2019) Analysis Performed At Patho logist Time Signature WBC 12.98 (EXTERNAL/ ABN) RBC 5.30 (External Lab) Hemoglobin 16.3 (External Lab) Hematocrit 47.2 (External Lab) MCV 89.1 (External Lab) Platelets 194 (External Lab) MCH 30.8 (External Lab) MCHC 34.5 (External Lab) Chol, Total 184 (External Lab) Triglycerides 51 (External Lab) HDL 64 (External Lab) TSH 0.28 (External Lab) Free T4 0.74 (External Lab) Specimen (Source) Anatomical Location Collection Method / Collectio n Time Received Time / Laterality Volume 09/11/2019 Historical Provider POINT OF CARE TEST ORDERABLE S documented in this encounter Visit Diagnoses Not on filedocumented in this encounter Care Teams Private Client Advisor Relationship Specialty Start Date End Date Rupal Miller APRN PCP - General General Internal Medicine 01/17/17 1 [facility] [place] [address] documented as of this encounter
--- OUTSIDE RECORDS SUMMARY | 2021-10-03 11:07 | XMS_ITS | Encounter Summary ---
:1960 Author Organization [facility] [place] [address] Care Team Providers Name Role Phone Rupal Miller APRN Primary Care Provider [phone] Reason for Referral Diagnostic Test (Routine) - Closed Specialty Diagnoses / Procedures Referred By Contact Refer red To Contact Diagnoses Abnormal EKG Rupal Miller, [facility] Non-Inv Card Lab Procedures Echocardiogram Stress (Treadmill) ANTONY [facility] [place] [address] [place] [address] Referral ID Status Reason Start Date Expiration Date Visits V isits Requested Authorized [id number] Closed Specialty 09/24/2019 03/21/2020 1 1 Service Requested Reason for Visit Reason Onset Date Comments Other 09/14/2019 Encounter Details Date Type Department Care Team Description 09/14/[address] [facility] Ingris Vega, SUZANNA Other [facility] Genoveva mcpherson [place] [address] [facility] [phone] [place] [phone] (Wo rk) Social History Tobacco Use Types Packs/Day Years Used Date Current Some Day Smoker Cigarettes 0.66 32 Star michelle: 02/06/1976 Smokeless Tobacco: Never Used Comments: nonsmoker [...] this encounter Miscellaneous Notes Telephone Encounter - Ingris Vega RN - 09/14/2019 11:23 AM EDT Guillaume said that he was fishing on Friday and punctured his had with the fish hook and had a anaphylactic reaction. He was seen at the [facility]'s ED. He was told that he had a abnormal EKG and shouldhave a stress test. He was told that his thyroid test were abnormal and he should have follow up. Hecalled to schedule an appointment with Rupal Miller. He is doing well but feels tired. I called for the [facility] records which were faxed. I put a referral in to [facility] with Rupal Miller's permission. Guillaume is aware of the referral. He will see Rupal Miller on 09/22/19. documented in this encounter Plan of Treatment Not on filedocumented as of this encounter Results STRESS ECHOCARDIOGRAM W LMTD SPECTRAL DOPP, COLOR DOPP (10/01/2019 2:52 PM EDT) P athologist Signature EF 65 [facility] Specimen (Source) Anatomical Location Collection Method / Collectio n Time Received Time / Laterality Volume 10/01/2019 Narrative [facility] - 10/01/2019 3:06 PM EDT Procedure: ?Stress Echocardiogram Patient: ?FATUMA LICONA R ? (Age): 1960(58y) Med Rec#: ? [id number] ?Sex: ?M ? Site Loc: ? [facility] ?Ht / Wt: ??174(cm)/88(kg) Pt. Loc: ?Echo Lab ?BSA: ?2.03 Study Date: ?? 10/01/2019 ?Pt. Type: Tape: ? Referring: Rupal Miller Referring: STEPHEN Reading: Aung Guerra ??([id number]) Medical Administrative Assistant: Pratima Good Flight Control Tower Operator: Codie Leslie Diagnosis: *Abnormal electrocardiogram [ECG] [EKG] (R94.31) Stage ? BP ?HR ? Rest ?162/72 ?76 ? Peak ?210/110 ? 179 ? Recovery ?134/84 ?91 ? SUMMARY: 1. REST: Resting ECG showed normal sinus rhythm without significant ST-T wave abnormality. Resting echo showed no rmal global and segmental LV systolic function with an estimated LVEF of 65%. Please see below for additional resting echo findings. 2. STRESS: The patient followed the Bruc e protocol for 11:09, attaining a peak workload of 13.4 METs at a heart rate of 179 bpm (111% MPHR). The resting blood pressure of 162/92 medardo to a maximum of 210/110. The patient did not experience chest pain. T he study was terminated due to non-cardiac reasons. During exercise, th ere were up to 2 mm horizontal/downsloping ST depressions in inferolateral leads, which resolved during recovery. With stress, g lobal LV systolic function augmented, and all LV wall segments raymond me appropriately hyperdynamic. 3. IMPRESSION: Normal exercise stress ec ho for ischemia, without echocardiographic evidence of ischemia a t a diagnostic level of stress. Hypertensive blood pressure response. Ex ercise tolerance is above average. Findings Rest: Left Ventricle: ? The left ventricul ar chamber size is normal. ?Mild concentric left ventricular h ypertrophy is observed. ?There is no evidence of LVOT obstr uction. ?There is normal global left ventri cular systolic function. ??Ejection fraction is estimated to be 65%. ?There are no left ventricular segm ental wall motion abnormalities. ?Doppler assessment is consistent w ith normal left sided filling pressure. Right Ventricle: ? Right ventricular chamber size, wall thickness, and systolic function are within normal limi ts. ?Pulmonary artery hypertension coul d not be assessed due to inadequate tricuspid regurgitation jet. Aortic Valve: ? The aortic valve is tricuspid. ?The aortic valve leaflets are mild ly thickened. ?Systolic excursion of the aortic v alve is normal. ?There is no evidence of aortic kush ve stenosis. ?There is no evidence of aortic reg urgitation. Mitral Valve: ? The mitral valve jennifer ears normal in structure and function. ?There is trace mitral regurgitatio n present. Tricuspid Valve: ? The tricuspid kush ve appears normal in structure and function. ?There is trace tricuspid regurgita tion present. Pericardium: ? The pericardium appea rs normal and there is no evidence of a pericardial effusion. Aorta: ? The ascending aorta is norm al in size. Stress: ? EKG: normal sinus rhythm. ?The patient's oxygen saturation wa s 98%. ?The patient is on an RICKY inhibitor . Misc: ? Other echo and stress findin gs as noted in report. ?Stress echo, limited spectral Dopp ler, color Doppler and ECG interpretation performed. Findings Peak: Predicted Values:The patient achieved a maximum heart rate of 179 which is 111% of the maximum predicted heart r ate (161 beats/min). ??The target heart rate was achieved. Left Ventricle: ? Global left ventri cular systolic function appears hyperdynamic. ?There are no left ventricular segm ental wall motion abnormalities. Stress: ? Patient followed a Hever p rotocol. ?The patient exercised into stage 4 . ?The total exercise duration was:11 :09 mins. ?The study was terminated because o f ECG abnormalities. ?The study was terminated because o f ??knee buckling. ?The patient did not express feelin gs of chest discomfort. ?The patient experienced shortness of breath. 5-6/10 shortness of breath at peak exercise. ?The blood pressure response was hy pertensive. ?Exercise capacity was excellent. ?There were no arrhythmias. ?There is 2.0 mm of down-sloping ST segment depression. ?There was ST segment depression in the inferolateral leads. ?V3 ?V4 ?This was a positive electrocardiog raphic stress test. ?This was a negative echocardiograp hic stress test. ?EKG: sinus tachycardia. ?The patient's oxygen saturation wa s 96%. Chambers 2D ?Value ?Units (Range) ? IVSd (2D) ? 1.28 ? cm ? LVPWd (2D) ?1.17 ? cm ? IVS:LVPW ratio (2D) 1.09 ? ratio ? LVIDd (2D) ?4.37 ? cm ? LVIDs (2D) ?2.72 ? cm ? EF Teichholz (2D) ?? 68.1 ? % ? Ascending Ao ?3.3 ?cm (2 - 3.5) ? Diastolic/Systolic Function ?Value ?Units (Range) ? MV E-wave Vmax ?0.57 ? m/sec ? MV deceleration [id number] ?msec ? MV A-wave Vmax ?0.45 ? m/sec ? MV E:A ratio ?1.3 ?ratio ? LV E:e' septal ratio5.5 ?ratio ? LV E:e' lateral rati5.4 ?ratio ? Wall Motion: Segment Name ?Rest ? Peak ? Base-Anteroseptal ?? Normal ? Normal ? Base-Anterior ? Normal ? Normal ? Base-Anterolateral ??Normal ? Normal ? Base-Posterolateral Normal ? N ormal ? Base-Inferior ? Normal ? Normal ? Base-Inferoseptal ?? Normal ? Normal ? Mid-Anteroseptal ?Normal ? Normal ? Mid-Anterior ?Normal ? Normal ? Mid-Anterolateral ?? Normal ? Normal ? Mid-Posterolateral ??Normal ? Normal ? Mid-Inferior ?Normal ? Normal ? Mid-Inferoseptal ?Normal ? Normal ? [place]-Septal ? Normal ? Normal ? [place]-Anterior ? Normal ? Normal ? [place]-Lateral ?Normal ? Normal ? [place]-Inferior ? Normal ? Normal ? [place]-Tip ?Normal ? Normal ? This report has been electronically sign ed by: _ Aung Guerra ? 10/01/2019 15:05: 48 [facility] Procedure Note Aung Guerra MD - 10/01/2019Format ting of this note might be different from the original. Procedure: Stress Echocardiogram Patient: FATUMA RICHARDS(Age): [birth year](58y) Med Rec#: [id number] Sex: M Site Loc: [facility] Ht / Wt: 174(cm)/88(kg) Pt. Loc: Echo Lab BSA: 2.03 Study Date: 10/01/2019 Pt. Type: Tape: Referring: Rupal Miller Referring: STEPHEN Reading: Aung Guerra ([id number]) Medical Administrative Assistant: Pratima Good Flight Control Tower Operator: Codie Leslie Diagnosis: *Abnormal electrocardiogram [ECG] [EKG] (R94.31) Stage BP HR Rest 162/72 76 Peak 210/110 179 Recovery 134/84 91 SUMMARY: 1. REST: Resting ECG showed normal sinus rhythm without significant ST-T wave abnormality. Resting echo showed no rmal global and segmental LV systolic function with an estimated LVEF of 65%. Please see below for additional resting echo findings. 2. STRESS: The patient followed the Bruc e protocol for 11:09, attaining a peak workload of 13.4 METs at a heart rate of 179 bpm (111% MPHR). The resting blood pressure of 162/92 medardo to a maximum of 210/110. The patient did not experience chest pain. T he study was terminated due to non-cardiac reasons. During exercise, th ere were up to 2 mm horizontal/downsloping ST depressions in inferolateral leads, which resolved during recovery. With stress, g lobal LV systolic function augmented, and all LV wall segments raymond me appropriately hyperdynamic. 3. IMPRESSION: Normal exercise stress ec ho for ischemia, without echocardiographic evidence of ischemia a t a diagnostic level of stress. Hypertensive blood pressure response. Ex ercise tolerance is above average. Findings Rest: Left Ventricle: The left ventricular esequiel mber size is normal. Mild concentric left ventricular hypert rophy is observed. There is no evidence of LVOT obstructio n. There is normal global left ventricular systolic function. Ejection fraction is estimated to be 65%. There are no left ventricular segmental wall motion abnormalities. Doppler assessment is consistent with n ormal left sided filling pressure. Right Ventricle: Right ventricular chamb er size, wall thickness, and systolic function are within normal limi ts. Pulmonary artery hypertension could not be assessed due to inadequate tricuspid regurgitation jet. Aortic Valve: The aortic valve is tricus pid. The aortic valve leaflets are mildly th ickened. Systolic excursion of the aortic valve is normal. There is no evidence of aortic valve st enosis. There is no evidence of aortic regurgit ation. Mitral Valve: The mitral valve appears n ormal in structure and function. There is trace mitral regurgitation pre sent. Tricuspid Valve: The tricuspid valve jennifer ears normal in structure and function. There is trace tricuspid regurgitation present. Pericardium: The pericardium appears nor mal and there is no evidence of a pericardial effusion. Aorta: The ascending aorta is normal in size. Stress: EKG: normal sinus rhythm. The patient's oxygen saturation was 98% . The patient is on an RICKY inhibitor. Misc: Other echo and stress findings as noted in report. Stress echo, limited spectral Doppler, color Doppler and ECG interpretation performed. Findings Peak: Predicted Values:The patient achieved a maximum heart rate of 179 which is 111% of the maximum predicted heart r ate (161 beats/min). The target heart rate was achieved. Left Ventricle: Global left ventricular systolic function appears hyperdynamic. There are no left ventricular segmental wall motion abnormalities. Stress: Patient followed a Hever protoco l. The patient exercised into stage 4. The total exercise duration was:11:09 m ins. The study was terminated because of ECG abnormalities. The study was terminated because of kn ee buckling. The patient did not express feelings of chest discomfort. The patient experienced shortness of br eath. 5-6/10 shortness of breath at peak exercise. The blood pressure response was hyperte nsive. Exercise capacity was excellent. There were no arrhythmias. There is 2.0 mm of down-sloping ST segm ent depression. There was ST segment depression in the inferolateral leads. V3 V4 This was a positive electrocardiographi c stress test. This was a negative echocardiographic s tress test. EKG: sinus tachycardia. The patient's oxygen saturation was 96% . Chambers 2D Value Units (Range) IVSd (2D) 1.28 cm LVPWd (2D) 1.17 cm IVS:LVPW ratio (2D) 1.09 ratio LVIDd (2D) 4.37 cm LVIDs (2D) 2.72 cm EF Teichholz (2D) 68.1 % Ascending Ao 3.3 cm (2 - 3.5) Diastolic/Systolic Function Value Units (Range) MV E-wave Vmax 0.57 m/sec MV deceleration [id number] msec MV A-wave Vmax 0.45 m/sec MV E:A ratio 1.3 ratio LV E:e' septal ratio5.5 ratio LV E:e' lateral rati5.4 ratio Wall Motion: Segment Name Rest Peak Base-Anteroseptal Normal Normal Base-Anterior Normal Normal Base-Anterolateral Normal Normal Base-Posterolateral Normal Normal Base-Inferior Normal Normal Base-Inferoseptal Normal Normal Mid-Anteroseptal Normal Normal Mid-Anterior Normal Normal Mid-Anterolateral Normal Normal Mid-Posterolateral Normal Normal Mid-Inferior Normal Normal Mid-Inferoseptal Normal Normal [place]-Septal Normal Normal [place]-Anterior Normal Normal [place]-Lateral Normal Normal [place]-Inferior Normal Normal [place]-Tip Normal Normal This report has been electronically sign ed by: _ Aung Mari 10/01/2019 15:05:48 Images reviewed and interpretation joan chawla [facility] Cardiac Ultrasound Laboratory Rupal Miller APRN ECHO ORDERABLES Performing Organization Address City/State/ZIP Code Phon e Number [facility]ART[facility] T4, free (09/22/2019 7:29 AM EDT) P athologist Signature Free T4 1.11 0.93 - 1.70 [place] ng/dL [facility] Specimen Anatomical Collection Method Collection Time Receive d Time (Source) Location / / Volume Laterality Blood specimen 09/22/2019 7:29 AM 020 7:36 (specimen) EDT AM EDT Resulting Agency Comment Spec In Lab Rupal Miller APRN CHEMISTRY ORDERABLES Performing Organization Address City/State/[place] [address] TSH (09/22/2019 7:29 AM EDT) P athologist Signature TSH 1.10 0.27 - 4.20 [place] mcIU/mL [facility] Specimen Anatomical Collection Method Collection Time Receive d Time (Source) Location / / Volume Laterality Blood specimen 09/22/2019 7:29 AM 020 7:36 (specimen) EDT AM EDT Resulting Agency Comment Spec In Lab Rupal Miller APRN CHEMISTRY ORDERABLES Performing Organization Address City/State/[place] [address] documented in this encounter Visit Diagnoses Diagnosis Abnormal EKG Nonspecific abnormal electrocardiogram ( ECG) (EKG) Abnormal thyroid blood test Nonspecific abnormal results of thyroid function study Leukocytosis, unspecified type Abnormal EKG Nonspecific abnormal electrocardiogram ( ECG) (EKG) documented in this encounter Care Teams Cnmt Relationship Specialty Start Date End Date Rupal Miller APRN PCP - General General Internal Medicine 01/17/17 [address] [facility] [address] [place] [address] documented as of this encounter
--- OUTSIDE RECORDS SUMMARY | 2021-10-03 11:07 | XMS_ITS | Encounter Summary ---
:1960 Author Organization [facility] [place] [address] Care Team Providers Name Role Phone Rupal Miller APRN Primary Care Provider [phone] Encounter Details Date Type Department Care Team Description 02/15/2020 Telephone Internal Medicine at [facility] [place] [address] Social History Tobacco Use Types Packs/Day [...] Notes Telephone Encounter - Kalyn Jimenez - 02/15/2020 3:10 PM EST Left message for patient to return call to re-schedule PHY/offer telehealth option documented in this encounter Plan of Treatment Not on filedocumented as of this encounter Visit Diagnoses Not on filedocumented in this encounter Care Teams Maintenance Worker House Trailer Relationship Specialty Start Date End Date Rupal Miller APRN PCP - General General Internal Medicine 01/17/[address] [facility] [place] [address] documented as of this encounter
--- OUTSIDE RECORDS SUMMARY | 2021-10-03 11:08 | XMS_ITS | Encounter Summary ---
:1960 [place] [address] Care Team Providers Name Role Phone Rupal Miller APRN Primary Care Provider [phone] Encounter Details Date Type Department Care Team Description 09/12/2019 Telephone Cardiology at [facility] David León, [facility] [place] [address] CARDIOLOGY DEPT [phone] [place], [place] [address] (Wo rk) Social History Tobacco Use Types Packs/Day Years Used Date Current Some Day Smoker Cigarettes 0.66 32 Star micehlle: 02/06/1976 Smokeless Tobacco: Never Used Comments: nonsmoker [...] to sleep or slept in a senior care (including now)? Sex Assigned at Date Recorded Not on file documented as of this encounter Miscellaneous Notes Telephone Encounter - David León DO - 09/12/2019 10:52 AM EDT Phone call: Request for Patient transfer or consultation Requesting physician: Rozina Location: [facility] Indication for transfer request: consult, EKG changes Pertinent clinical details: HPI: 58 male, reported hx of remote cath for tachycardia which was normal presented to ED with anaphylaxis - > 2 shots of Epinephrine, famotidine, benadryl, prednisone. EKG as part of post anaphylaxis treatement showing knew lateral T wave inversions. No chest pain, troponin negative x 3. No further anaphylaxis Risk factors include Smoker, HLD, HTN, No chest pain Vitals: BP: 151/84, HR: 88, Labs: Troponin: negative x 3 CBC: unremarkable BMP: unremarkable Assessment/Recs: 58 yo male with risk factors with knew t-wave inversions after episode of anaphylaxis requiring epi.Trops negative and no chest pain making ACS unlikely. Recommended outpatient stress test. David León DO Manager Of Human Resources, PGY-4 09/12/2019 documented in this encounter Plan of Treatment Not on filedocumented as of this encounter Visit Diagnoses Not on filedocumented in this encounter Care Teams Airborne Sensor Specialist Relationship Specialty Start Date End Date Rupal Miller APRN PCP - General General Internal Medicine 01/17/17 1 [facility] [place] [address] documented as of this encounter
--- OUTSIDE RECORDS SUMMARY | 2021-10-03 11:08 | XMS_ITS | Encounter Summary ---
:1960 Author Organization [facility] [place] [address] Care Team Providers Name Role Phone Rupal Miller APRN Primary Care Provider [phone] Reason for Visit Reason Comments Hypertension Encounter Details Date Type Department Care Team Description 02/19/2018 Clinical Support Internal Medicine at [facility], Sailaja pierre blood [facility], CCMA pressure reading with [facility] diagnosis [place] [id number] Social History Tobacco Use Types Packs/Day Years [...] place to sleep or slept in a correction (including now)? Sex Assigned at Date Recorded Not on file documented as of this encounter Last Filed Vital Signs Vital Sign Reading Time Taken Comments Blood Pressure 142/91 02/19/2018 8:53 AM EST his machi ne Pulse - - Temperature - - Respiratory Rate - - Oxygen Saturation - - Inhaled Oxygen Concentration - - Weight - - Height - - Body Mass Index - - documented in this encounter Progress Notes Sailaja Presley, [facility] - 02/19/2018 9:00 AM EST SONG BLOOD PRESSURE CHECK Provider plan of care at last visit: Medications 02/19/18 0847 Medication Sig Taking? lisinopril (PRINIVIL;ZESTRIL) 10 mg Tablet Take 1 tablet by mouth daily. Yes omeprazole (PRILOSEC) 10 mg Capsule, Delayed Release(E.C.) Take 10 mg by mouth daily. Yes Taking BP medications as prescribed? yes If no, list how they are taking: Did you take your medication today? yes Tolerating medications? yes Monitoring BP at home? yes If yes, list three most recent values: (add values to Doc flowsheets) At home: In office with patient's cuff:122/83 There were no vitals taken for this visit. (If BP >140/90 or <90/50, wait 5-10 minutes and recheck). Patient notified of blood pressure results and their goal based on provider plan of care. Message routed to Provider for further review and management. documented in this encounter Plan of Treatment Not on filedocumented as of this encounter Visit Diagnoses Diagnosis Elevated blood pressure reading with alireza gnosis of hypertension documented in this encounter Care Teams Component Inspector Relationship Specialty Start Date End Date Rupal Miller APRN PCP - General General Internal Medicine 01/17/17 1 [facility] [place] [address] documented as of this encounter
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
--- OUTSIDE RECORDS SUMMARY | 2021-10-03 11:08 | XMS_ITS | Encounter Summary ---
:1960 Author Organization [facility] [place] [address] Care Team Providers Name Role Phone Rupal Miller APRN Primary Care Provider [phone] Encounter Details Date Type Department Care Team Description 01/14/2019 Telephone Internal Medicine [place] [facility] [place] [address] Social History Tobacco Use Types Packs/Day [...] Notes Telephone Encounter - Tierney Parsons - 01/14/2019 9:08 AM EDT Pt had appt on 02/04/19 that was bumped and has been rescheduled documented in this encounter Plan of Treatment Not on filedocumented as of this encounter Visit Diagnoses Not on filedocumented in this encounter Care Teams Hunting Sales Associate Relationship Specialty Start Date End Date Rupal Miller APRN PCP - General General Internal Medicine 01/17/[address] [facility] [place] [address] documented as of this encounter
--- OUTSIDE RECORDS SUMMARY | 2021-10-03 11:08 | XMS_ITS | Encounter Summary ---
:1960 [place] [address] Care Team Providers Name Role Phone Rupal Miller APRN Primary Care Provider [phone] Encounter Details Date Type Department Care Team Description 06/05/2017 Laboratory Appointment Lab 3L [facility] [place] [address] Social History Tobacco Use Types Packs/Day Years [...] Name Priority Date/Time Associated Diagnosis Comme nts LIPID PANEL (REFLEX Routine 06/05/2017 8:21 AM Elevated choles terol Results for this DIRECT LDL) EDT procedure are i n the results section. documented in this encounter Results Lipid Panel (06/05/2017 8:21 AM EDT) P athologist Signature Chol, Total 161 mg/dL [facility] Comment: Lower Risk: <200 mg/dL Average Risk: 200-239 mg/dL Higher Risk: >ry=798 mg/dL Triglycerides 68 mg/dL [facility] Comment: Average Risk/Lower Risk: <150 mg/dL Borderline High Risk: 150-199 mg/dL High Risk: 200-499 mg/dL Very High Risk: >ih=480 mg/dL HDL 46 mg/dL [facility] Comment: Males: ?? Higher Risk: <40 mg/dL Females: ?? HIgher Risk: <50 mg/dL LDL Cholesterol 101 mg/dL [facility] Comment: Lowest Risk: <100 mg/dL Lower Risk: 100-129 mg/dL Borderline High Risk: 130-159 mg/dL High Risk: 160-189 mg/dL Very High Risk: >xc=674 mg/dL Chol/HDL Ratio 3.5 ratio [facility] Lipid Interpretation See Note [facility] Comment: Lipid management should be guided by a p atient? s ASCVD risk, goals and preferences. ACC/AHA Guidelines recommend high intens ity statin if clinical ASCVD or LDL greater than or equal to 190 mg/dL. http://[email or web address]/NWP-URU-Lvpwpykjj Adults aged 40-75 with LDL 70-189 mg/dL should have their 10 year ASCVD risk estimated with the ACC/AHA ASCVD risk es timator http://tools.acc.org/LDWLL-Iprc-Lavmxclr r/ Statin should be discussed if risk [...] Location / / Volume Laterality Blood specimen 06/05/2017 8:21 AM 018 8:29 (specimen) EDT AM EDT Resulting Agency Comment Spec In Lab Rupal Miller APRN CHEMISTRY ORDERABLES Performing Organization Address City/State/[place] [address] documented in this encounter Visit Diagnoses Diagnosis Elevated cholesterol Pure hypercholesterolemia documented in this encounter Care Teams Associate Director Of Biostatistics Relationship Specialty Start Date End Date Rupal Miller APRN PCP - General General Internal Medicine 01/17/[address] [place] [address] [place] [address] documented as of this encounter
--- OUTSIDE RECORDS SUMMARY | 2021-10-03 11:08 | XMS_ITS | Encounter Summary ---
:1960 Author Organization [facility] [place] [address] Care Team Providers Name Role Phone Rupal Miller APRN Primary Care Provider [phone] Encounter Details Date Type Department Care Team Description 04/15/2019 Telephone [place]ology [place] [facility] [place] [place] [address] [place] [address] [phone] (Wo rk) Social History Tobacco Use Types [...] this encounter Miscellaneous Notes Telephone Encounter - Harmony Garcia MD - 04/15/2019 4:43 PM EST Gastroenterology Pathology Results/Telephone Note I called Mr. Rm at [phone] this afternoon and informed him of his pathology results of the polyps on his recent colonoscopy. Given the number of polyps and the pathology of high grade dysplasiaon the 1cm sigmoid polyp, I am recommending a repeat colonoscopy in 1 year, patient is agreeable. I will message to get the colonoscopy scheduled - Mr. Rm is requesting the procedure be done on aFriday if possible. Harmony Garcia MD Advanced Endoscopy Fellow Gastroenterology documented in this encounter Plan of Treatment Not on filedocumented as of this encounter Visit Diagnoses Not on filedocumented in this encounter Care Teams Idea Man Relationship Specialty Start Date End Date Rupal Miller APRN PCP - General General Internal Medicine 01/17/17 1 [facility] [place] [address] documented as of this encounter
--- OUTSIDE RECORDS SUMMARY | 2021-10-03 11:08 | XMS_ITS | Encounter Summary ---
:1960 Author Organization [facility] [place] [address] Care Team Providers Name Role Phone Rupal Miller APRN Primary Care Provider [phone] Reason for Visit Reason Onset Date Comments Medication Refill 05/22/2018 Encounter Details Date Type Department Care Team Description 05/22/2018 Refill Internal Medicine at [facility] Hypertension, [facility] [place] [address] Social History Tobacco Use Types Packs/Day [...] place to sleep or slept in a fdc (including now)? Sex Assigned at Date Recorded Not on file documented as of this encounter Miscellaneous Notes Telephone Encounter - Rupal Miller APRN - 05/22/2018 11:52 AM EST Needs BMP done. Order is in. documented in this encounter Plan of Treatment Not on filedocumented as of this encounter Visit Diagnoses Diagnosis Hypertension, unspecified type documented in this encounter Care Teams Metal Technician Relationship Specialty Start Date End Date Rupal Miller APRN PCP - General General Internal Medicine 01/17/17 1 [facility] [place] [address] documented as of this encounter
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
--- OUTSIDE RECORDS SUMMARY | 2021-10-03 11:08 | XMS_ITS | Encounter Summary ---
:1960 Author Organization [facility] [place] [address] Care Team Providers Name Role Phone Rupal Miller APRN Primary Care Provider [phone] Encounter Details Date Type Department Care Team Description 02/05/2017 Laboratory Lab 3L [place] Hypertension, u nspecified type; Appointment [facility] Screening for HIV (human immunodeficiency virus) [place] [id number] Social History Tobacco Use Types Packs/Day Years Used Date Current Every Day Smoker Cigarettes 0.66 41 Sta rted: 02/06/1976 Smokeless Tobacco: Never Used Alcohol Use Standard Drinks/Week Comments Not Asked 6 (1 standard drink = 0.6 oz [...] place to sleep or slept in a residential (including now)? Sex Assigned at Date Recorded Not on file documented as of this encounter Plan of Treatment Not on filedocumented as of this encounter Procedures Procedure Name Priority Date/Time Associated Diagnosis Comme nts CMP W/FASTING Routine 02/05/2017 7:00 Hypertension, Results fo r this GLUCOSE AM EST unspecified type procedure a re in the results section. HEMOGRAM Routine 02/05/2017 7:00 Hypertension, Results for this AM EST unspecified type procedure a re in the results section. DIFFERENTIAL, Routine 02/05/2017 7:00 Hypertension, Results fo r this AUTOMATED AM EST unspecified type procedure a re in the results section. HIV SCREEN, 4TH Routine 02/05/2017 7:00 Screening for HIV (hum an Results for this GENERATION AM EST immunodeficiency virus) proc edure are in ([facility]/CGP/APD/NLH) the resul ts section. CBC (WITH DIFF) Routine 02/05/2017 7:00 Hypertension, AM EST unspecified type LIPID PANEL Routine 02/05/2017 7:00 Hypertension, Results for this (REFLEX DIRECT AM EST unspecified type procedure are in LDL) the results section. documented in this encounter Results Differential, Automated (02/05/2017 7:00 AM EST) athologist Signature Neutrophils % 45.1 % [facility] Neutr Abs (ANC) 1.89 1.70 - [facility] 6.10 [facility] x10(3)/[facility] LABORATORY Lymphocytes % 43.1 % [facility] Lymphocytes Abs 1.8 0.9 - 3.2 [facility] x10(3)/[facility] LABORATORY Monocytes % 7.7 % [facility] Monocyte Abs 0.3 0.3 - 0.9 [facility] x10(3)/[facility] LABORATORY Eosinophils % 3.6 % [facility] Eosinophils Abs 0.2 0.0 - 0.4 [facility] x10(3)/[facility] LABORATORY Basophils % 0.5 % [facility] Basophils Abs 0.0 0.0 - 0.1 [facility] x10(3)/[facility] LABORATORY Immature Gran % 0.00 % [facility] [...] Danette Gran Abs 0.00 0.00 - 0.04 x10(3)/[facility] MAR Y [facility] Specimen Anatomical Collection Method Collection Time Receive d Time (Source) Location / / Volume Laterality Blood specimen 02/05/2017 7:00 AM 017 7:17 (specimen) EST AM EST Resulting Agency Comment Spec In Lab Rupal Miller APRN HEMATOLOGY ORDERABLES Performing Organization Address City/State/ZIP [place] [address] Hemogram (02/05/2017 7:00 AM EST) P athologist Signature WBC 4.2 4.0 - 9.5 [facility] x10(3)/[facility] LABORATORY RBC 4.91 4.58 - [facility] 5.54 [facility] x10(6)/[facility] LABORATORY Hemoglobin 15.1 13.7 - [facility] 16.5 gm/dL [facility] Hematocrit 43.6 40.5 - [facility] 48.5 % [facility] MCV 88.8 82.9 - [facility] 93.1 [facility] MCH 30.8 27.5 - [facility] 32.1 pg [facility] MCHC 34.6 32.0 - [facility] 35.7 gm/dL [facility] Platelets 167 145 - 357 [facility] x10(3)/[facility] LABORATORY RDWSD 40.9 36.0 - [facility] 45.0 [facility] RDWCV 12.6 11.4 - [facility] 13.8 % [facility] MPV 10.2 7.6 - 12.9 [facility] LABORATORY nRBC % Auto 0.0 % [facility] nRBC Abs Auto 0.000 0.000 - [facility] 0.000 [facility] x10(3)/[facility] LABORATORY Specimen Anatomical Collection Method Collection Time Receive d Time (Source) Location / / Volume Laterality Blood specimen 02/05/2017 7:00 AM 017 7:17 (specimen) EST AM EST Resulting Agency Comment Spec In Lab Rupal Miller APRN HEMATOLOGY ORDERABLES Performing Organization Address City/State/ZIP [place] [address] HIV Screen, 4th Generation (02/05/2017 7:00 AM EST) Analysis Performed At Patho logist Time Signature HIV-1/2 Ab and Negative Negative [facility] LABORATORY Comment: This 4th Generation HIV test screens for the presence of the HIV-1 p24 antigen as well as antibodies reactive against H IV-1 and HIV-2. A negative screen does not rule out an acute HIV infection. If acute HIV infection is suspected, testing should be repeated in 2 - 3 week s or HIV nucleic acid testing performed. Specimen Anatomical Collection Method Collection Time Receive d Time (Source) Location / / Volume Laterality Blood specimen 02/05/2017 7:00 AM 017 7:17 (specimen) EST AM EST Resulting Agency Comment Spec In Lab Rupal Mena Angela JIMENEZN IMMUNOLOGY ORDERABLES Performing Organization Address City/State/[place] [address] (ABNORMAL) Lipid Panel (02/05/2017 7:00 AM EST) [facility] Method Time Signature Chol, Total 148 <=239 [place] mg/dL [facility] Triglycerides 114 <=199 [place] mg/dL [facility] HDL 38 (L) >=40 [place] mg/dL [facility] LDL Cholesterol 87 <=190 [place] mg/dL [facility] Chol/HDL Ratio 3.9 ratio [facility] Lipid See Note [place] Interpretation [facility] Comment: Lipid management should be guided by a p atient? s ASCVD risk, goals and preferences. ACC/AHA Guidelines recommend high intens ity statin if clinical ASCVD or LDL greater than or equal to 190 mg/dL. http://[employer].Twelixir/OYG-NEZ-Ciitschyi Adults aged 40-75 with LDL 70-189 mg/dL should have their 10 year ASCVD risk estimated with the ACC/AHA ASCVD risk es timator http://tools.acc.org/GDBGZ-Gcyc-Zhokvaxo r/ Statin should be discussed if risk [...] Location / / Volume Laterality Blood specimen 02/05/2017 7:00 AM 017 7:17 (specimen) EST AM EST Resulting Agency Comment Spec In Lab Rupal Mena Angela JIMENEZN CHEMISTRY ORDERABLES Performing Organization Address City/State/ZIP [place] [address] CMP w/fasting Glucose (02/05/2017 7:00 AM EST) athologist Signature Glucose 95 65 - 99 [facility] Fasting mg/dL [facility] Comment: ?Fasting* Glucose Interpretive C riteria Normal ?65-99 mg/dL Impaired Fasting glucose ?100-125 mg/dL Consistent with Diabetes Mellitus ? >or= 126 mg/dL *Fasting is defined as no caloric intake for at least 8 hours In the absence of unequivocal hypergly cemia a plasma glucose value of >or= 126 mg/dL should be repeated on a subseq uent day. Diagnosis and Classification of Diabetes Mellitus, Position Statement from the [place] [employer]. ??Diabete s Care, Volume 33, Supplement 1, Mar 2009 BUN 20 10 - 20 mg/dL [facility] Creatinine 1.13 0.80 - 1.50 mg/dL [facility] Sodium 144 135 - 145 mmol/L [facility] Potassium 4.5 3.5 - 5.0 mmol/L [facility] Comment: Please note: ??Patients with WBC >100,00 0 may have falsely elevated Potassium levels. ??For accurate Potassium quantif ication in these patients send serum separator tube (gold top) for subsequent determinations. ??Contact the Clinical Chemistry Laboratory if there are any qu estions. Chloride 106 98 - 107 mmol/L [facility] CO2 28 22 - 31 mmol/L [facility] Anion Gap 10 5 - 15 mmol/L [facility] Calcium 10.1 8.5 - 10.5 mg/dL [facility] Total Protein 6.7 6.1 - 8.0 gm/dL [facility] Albumin 4.1 3.2 - 5.2 gm/dL [facility] AST 14 0 - 39 unit/L [facility] ALT 13 0 - 55 unit/L [facility] Alk Phos 51 40 - 120 unit/L [facility] Total Bilirubin 0.4 0.2 - 1.3 mg/dL [facility] Estimated GFR >60 >=60 [facility] Comment: The reported eGFR should be multiplied b y 1.2 for patients. The MDRD is not an appropriate measure o f renal function for patients with body mass extremes or in patients with acute kidney failure. http://RunMyProcess/DHnkdep http://[employer]/DHMCnkf Specimen Anatomical Collection Method Collection Time Receive d Time (Source) Location / / Volume Laterality Blood specimen 02/05/2017 7:00 AM 017 7:17 (specimen) EST AM EST Resulting Agency Comment Spec In Lab Rupal Miller APRN CHEMISTRY ORDERABLES Performing Organization Address City/State/[place] [address] documented in this encounter Visit Diagnoses Diagnosis Hypertension, unspecified type Screening for HIV (human immunodeficienc y virus) Special screening examination for other specified viral diseases documented in this encounter Care Teams Waste Water Worker Relationship Specialty Start Date End Date Rupal Miller APRN PCP - General General Internal Medicine 01/17/[address] [place] [address] [place] [address] documented as of this encounter
--- OUTSIDE RECORDS SUMMARY | 2021-10-03 11:08 | XMS_ITS | Encounter Summary ---
:1960 Author Organization [facility] [place] [address] Care Team Providers Name Role Phone Rupal Miller APRN Primary Care Provider [phone] Encounter Details Date Type Department Care Team Description 02/20/2017 Laboratory Appointment Lab [facility], [facility] [place] [address] Social History Tobacco Use Types Packs/Day Years [...] Name Priority Date/Time Associated Diagnosis Comme nts BMP W/FASTING STAT 02/20/2017 8:19 AM Hypertension, Results for this GLUCOSE EST unspecified type procedure a re in the results section. documented in this encounter Results BMP w/fasting Glucose (02/20/2017 8:19 AM EST) athologist Signature Glucose 91 65 - 99 [facility] [place] Fasting mg/dL [facility] Comment: ?Fasting* Glucose Interpretive C shayneeria Normal ?65-99 mg/dL Impaired Fasting glucose ?100-125 mg/dL Consistent with Diabetes Mellitus ? >or= 126 mg/dL *Fasting is defined as no caloric intake for at least 8 hours In the absence of unequivocal hypergly cemia a plasma glucose value of >or= 126 mg/dL should be repeated on a subseq u day. Diagnosis and Classification of Diabetes Mellitus, Position Statement from the [place] [employer]. ??Diabete s Care, Volume 33, Supplement 1, Mar 2009 BUN 15 10 - 20 mg/dL [facility] Creatinine 1.02 0.80 - 1.50 mg/dL [facility] Sodium 143 135 - 145 mmol/L [facility] Potassium 4.2 3.5 - 5.0 mmol/L [facility] Comment: Please note: ??Patients with WBC >100,00 0 may have falsely elevated Potassium levels. ??For accurate Potassium quantif ication in these patients send serum separator tube (gold top) for subsequent determinations. ??Contact the Clinical Chemistry Laboratory if there are any qu estions. Chloride 106 98 - 107 mmol/L [facility] CO2 27 22 - 31 mmol/L [facility] Anion Gap 10 5 - 15 mmol/L [facility] Calcium 9.9 8.5 - 10.5 mg/dL [facility] Estimated GFR >60 >=60 [facility] Comment: The reported eGFR should be multiplied b y 1.2 for patients. The MDRD is not an appropriate measure o f renal function for patients with body mass extremes or in patients with acute kidney failure. http://[employer].Venaxis/DHnkdep http://GigsTime/DHMCnkf Specimen Anatomical Collection Method Collection Time Receive d Time (Source) Location / / Volume Laterality Blood specimen 02/20/2017 8:19 AM 017 8:25 (specimen) EST AM EST Resulting Agency Comment Spec In Lab Rupal Miller APRN CHEMISTRY ORDERABLES Performing Organization Address City/State/Z[place] [address] documented in this encounter Visit Diagnoses Diagnosis Hypertension, unspecified type documented in this encounter Care Teams Animal Treatment Investigator Relationship Specialty Start Date End Date Rupal Miller APRN PCP - General General Internal Medicine 01/17/[address] [place] [address] [place] [address] documented as of this encounter
--- OUTSIDE RECORDS SUMMARY | 2021-10-03 11:08 | XMS_ITS | Encounter Summary ---
:1960 Author Organization [facility] [place] [address] Care Team Providers Name Role Phone Rupal Miller APRN Primary Care Provider [phone] Reason for Referral Consultation (Routine) - Closed Specialty Diagnoses / Procedures Referred By Contact Refer red To Contact Gastroenterology Diagnoses Encounter for screening colonoscopy Rupal Miller [facility] Endoscopy 4t BUSINESS OPERATIONS COORDINATOR [facility] [place] [address] [place] [address] Referral ID Status Reason Start Date Expiration Date Visits V isits Requested Authorized [id number] Closed Test Only 02/05/2017 02/05/2018 1 1 Reason for Visit Reason Comments Follow-up Encounter Details Date Type Department Care Team Description 02/05/2017 Office Visit Internal Medicine at Rupal Miller althcare maintenance; [facility] ANTONY Mena Hypertension, unspecified type; [facility] Cig arette smoker; Stephanie YAP Encounter for screening colonoscopy; [place], [place] VASCULAR SURGERY Elevated cholesterol [id number] [place] [address] [phone] Social History Tobacco Use Types Packs/Day Years Used Date Current Every Day Smoker Cigarettes 0.66 41 Sta rted: 02/06/1976 Smokeless Tobacco: Never Used Tobacco Cessation: Ready to Quit: No; Co unseling Given: Yes Alcohol Use Standard Drinks/Week Comments Not Asked [...] Sign Reading Time Taken Comments Blood Pressure 153/87 02/05/2017 9:24 AM EST Pulse 59 02/05/2017 8:15 AM EST Temperature 36.7 ??C (98 ??F) 02/05/2017 8:15 AM EST Respiratory Rate 18 02/05/2017 8:15 AM EST Oxygen Saturation 99% 02/05/2017 8:15 AM EST Inhaled Oxygen Concentration - - Weight 88.3 kg (194 lb 9.6 oz) 02/05/2017 8:15 AM EST Height 174 cm (5' 8.5) 02/05/2017 8:15 AM EST Body Mass Index 29.16 02/05/2017 8:15 AM EST documented in this encounter Progress Notes Rupal Miller, BUSINESS OPERATIONS COORDINATOR - 02/05/2017 8:40 AM EST Subjective: Patient ID: Fly Rm is a 56 y.o. male. Chief Complaint Patient presents with ??? Follow-up Here to f/u prior visit for high blood pressure and to complete annual. ?? BP f/u: Readings at home have ranged from 126-151/80-99. Reading today here 144/94. He always sleeps well. He did buy a book on the DASH diet but hasn't really read it. He doesn't eat a lot of processed food or sodium. He does think he can improve his diet just based on looking at the book. He is active all day moving things. In his spare time he does batting practice with his son, goes hunting. ?? Smoking: He is on his way to quitting. He notices his evening blood pressure readings are lower on days when he has had fewer cigarettes. Declines vaccines today. Social History Social History Narrative Lives with Verito and son Yann (2000). Great marriage. Grew up in [place] with parents and 3 sisters. Good childhood. Has lived in [place]. 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 Doesn't like the work much but 'it keeps me fromspending money'. Likes to ride his Luc, fish, dueñas, involved with youth baseball. No dudley practice. Family History Problem Relation [...] Infarction Neg Hx ??? Diabetes Neg Hx Social History Substance Use Topics ??? Smoking status: Current Every Day Smoker Packs/day: 0.66 Years: 41.00 Types: Cigarettes Start date: 02/06/1976 ??? Smokeless tobacco: Never Used ??? Alcohol use Not on file Review of Systems Constitutional: Negative for diaphoresis and fever. HENT: Negative for nosebleeds. Respiratory: Negative for shortness of breath and wheezing. Cardiovascular: Negative for chest pain and palpitations. Gastrointestinal: Negative for abdominal pain, nausea and vomiting. Genitourinary: Negative for dysuria. Skin: Negative for rash. Neurological: Negative for dizziness, light-headedness and headaches. Psychiatric/Behavioral: Negative for sleep disturbance. Objective: Visit Vitals ??? BP (!) 152/92 (BP Location (NBP): Right arm, Patient Position: Sitting, BP Cuff Sizes: Adult (25-34 cm)) ??? Pulse 59 ??? Temp 36.7 ??C (98 ??F) (Oral) ??? Resp 18 ??? Ht 174 cm (5' 8.5) ??? Wt 88.3 kg (194 lb 9.6 oz) ??? SpO2 99% ??? BMI 29.16 kg/m2 BP recheck 153/87 right arm, seated Patient reported measures: Pain:0 Physical Health:[place]: No flowsheet data found. Wt Readings from Last 3 Encounters: 02/05/17 88.3 kg (194 lb 9.6 oz) 01/23/17 87.8 kg (193 lb 9.6 oz) Physical Exam Constitutional: He is oriented to person, place, and time. He appears well- developed and well-nourished. No distress. HENT: Head: Normocephalic and atraumatic. Right Ear: External ear normal. Left Ear: External ear normal. Nose: Nose normal. Mouth/Throat: Oropharynx is clear and moist. No oropharyngeal exudate. TMs pearly with normal landmarks Eyes: Conjunctivae and EOM are normal. Pupils are equal, round, and reactive to light. No scleral icterus. Neck: Normal range of motion. Neck supple. No thyromegaly present. Cardiovascular: Normal rate, regular rhythm, normal heart sounds and intact distal pulses. Exam reveals no gallop and no friction rub. No murmur heard. Pulmonary/Chest: Effort normal and breath sounds normal. No respiratory distress. He has no wheezes.He has no rales. Abdominal: Soft. Bowel sounds are normal. He exhibits no distension and no mass. There is no tenderness. No HSM Musculoskeletal: Normal range of motion. He exhibits no edema. Lymphadenopathy: He has no cervical adenopathy. Neurological: He is alert and oriented to person, place, and time. He has normal reflexes. He exhibits normal muscle tone. Coordination normal. Skin: Skin is warm and dry. He is not diaphoretic. Psychiatric: He has a normal mood and affect. His behavior is normal. Judgment and thought content normal. Vitals reviewed. The 10-year ASCVD risk score (Orgas MAXIMILIANO Jr, et al., 2013) is: 14.1% Values used to calculate the score: Age: 56 years Sex: Male Is Non- : No Diabetic: No Tobacco smoker: Yes Systolic Blood Pressure: 152 mmHg Is BP treated: No HDL Cholesterol: 38 mg/dL Total Cholesterol: 148 mg/dL Lab Results Component Value Date WBC 4.2 02/05/2017 HGB 15.1 02/05/2017 HCT 43.6 02/05/2017 MCV 88.8 02/05/2017 PLATELET 167 02/05/2017 Lab Results Component Value Date NA 144 02/05/2017 K 4.5 02/05/2017 CL 106 02/05/2017 CO2 28 02/05/2017 BUN 20 02/05/2017 CREATININE 1.13 02/05/2017 GLUCFASTING 95 02/05/2017 CALCIUM 10.1 02/05/2017 ESTGFR >60 02/05/2017 Lab Results Component Value Date ALT 13 02/05/2017 AST 14 02/05/2017 ALKPHOS 51 02/05/2017 BILITOT 0.4 02/05/2017 ALBUMIN 4.1 02/05/2017 PROT 6.7 02/05/2017 Lipid Panel Lab Results Component Value Date CHLPL 148 02/05/2017 HDL 38 (L) 02/05/2017 CHOLHDL 3.9 02/05/2017 TRIG 114 02/05/2017 LDLCHOL 87 02/05/2017 Assessment and Plan: Here to f/u BP and complete annual visit. 1. Healthcare maintenance Health Maintenance Topic Date Due ??? Lipid Screening 11/15/1977 ??? Pneumo Increased Risk (1 of 1 - PPSV23) 11/15/1978 ??? Tdap adult 11/15/1978 ??? Tetanus vaccine 11/15/1978 ??? Diabetes Screening (HgbA1C or Glucose) 1999 ??? Colonoscopy 11/15/2009 ??? Advance Directive 11/15/2014 ??? Influenza (Flu) vaccine (1 of - Influenza Standard Series) 11/22/2016 ??? HIV screen 02/05/2018 (Originally 11/15/1977) Encouraged Tdap, flu and PPSV23 but he declined saying it's a big deal for him to be here at all dealing with his blood pressuer. Discussed option of prostate cancer screening with PSA including pros and cons and USPSTF recommendation. He declines. 2. Hypertension, unspecified type - lisinopril (PRINIVIL;ZESTRIL) 10 mg Tablet; Take 1 tablet by mouth daily. Dispense: 30 tablet; Refill: 3 - BMP w/fasting Glucose; Future to check in the next couple of weeks. Cautioned re possible light headedness and to change positions slowly 3. Cigarette smoker Encouraged to quit and advised this may bring his blood pressure under control so that he might not need medication 4. Encounter for screening colonoscopy - Referral to Gastroenterology 5. Elevated cholesterol Numbers look good on profile but his high SBP raises risk based on ASCVD calculator. Will redo this once BP under control. F/U 2 weeks. - An After Visit Summary was given to the patient. documented in this encounter Plan of Treatment Scheduled Referrals Name Type Priority Associated Order Schedule Diagnoses Referral to Outpatient Routine Encounter for Ordered: Gastroenterology Referral screening 02/05/2017 colonoscopy documented as of this encounter Results BMP w/fasting Glucose (02/20/2017 8:19 AM EST) P athologist Signature Glucose 91 65 - 99 CHIN TYLER Fasting mg/dL [facility] Comment: ?Fasting* Glucose Interpretive C [...] of Diabetes Mellitus, Position Statement from the [place] [employer]. ??Diabete s Care, Volume 33, Supplement 1, Mar 2009 BUN 15 10 - 20 mg/dL [facility] Creatinine 1.02 0.80 - 1.50 mg/dL [facility] Sodium 143 135 - 145 mmol/L [facility] Potassium 4.2 3.5 - 5.0 mmol/L [facility] Comment: Please note: ??Patients with WBC >100,00 0 may have falsely elevated Potassium levels. ??For accurate Potassium quantif ication in these patients send serum separator tube (gold top) for subsequent determinations. ??Contact the Clinical Chemistry Laboratory if there are any qu estions. Chloride 106 98 - 107 mmol/L [facility] CO2 27 22 - 31 mmol/L [facility] Anion Gap 10 5 - 15 mmol/L [facility] Calcium 9.9 8.5 - 10.5 mg/dL [facility] Estimated GFR >60 >=60 [facility] Comment: The reported eGFR should be multiplied b y 1.2 for patients. The MDRD is not an appropriate measure o f renal function for patients with body mass extremes or in patients with acute kidney failure. http://NeuroNation.de/DHnkdep http://NeuroNation.de/DHMCnkf Specimen Anatomical Collection Method Collection Time Receive d Time (Source) Location / / Volume Laterality Blood specimen 02/20/2017 8:19 AM 017 8:25 (specimen) EST AM EST Resulting Agency Comment Spec In Lab Rupal Miller APRN CHEMISTRY ORDERABLES Performing Organization Address City/State/ZIP Code Phon e Number [place] [phone] documented in this encounter Visit Diagnoses Diagnosis Healthcare maintenance Routine general medical examination at a health care facility Hypertension, unspecified type Cigarette smoker Tobacco use disorder Encounter for screening colonoscopy Special screening for malignant neoplasm s, colon Elevated cholesterol Pure hypercholesterolemia documented in this encounter Care Teams Actuary Manager Relationship Specialty Start Date End Date Rupal Miller APRN PCP - General General Internal Medicine 01/17/[address] [place] [address] [place] [address] documented as of this encounter
--- OUTSIDE RECORDS SUMMARY | 2021-10-03 11:08 | XMS_ITS | Encounter Summary ---
:1960 Author Organization [facility] Address [facility] [place] [address] Care Team Providers Name Role Phone Rupal Miller APRN Primary Care Provider [phone] Encounter Details Date Type Department Care Team Description 04/05/2019 Surgery Gastroenterology at [facility] Harmony Garcia MD COLONOSCOPY, [facility] D rive [facility] [place]YPECTOMY[place] [address] [address] [address] LESION BY SNARE ([facility] [phone] [place], [place] [address] 4.67) Social History Tobacco Use Types Packs/Day Years [...] Sign Reading Time Taken Comments Blood Pressure 138/90 04/05/2019 10:20 AM EST Pulse 69 04/05/2019 10:18 AM EST Temperature 36.6 ??C (97.9 ??F) 04/05/2019 8:50 AM EST Respiratory Rate 18 04/05/2019 10:20 AM EST Oxygen Saturation 99% 04/05/2019 10:20 AM EST Inhaled Oxygen Concentration - - Weight - - Height - - Body Mass Index - - documented in this encounter Discharge Instructions AttachmentsThe following attachments cannot be sent through Care Everywhere. Colonoscopy: Post-op (Iraqi)documented in this encounter Medications at Time of Discharge Medication Sig Dispensed Refills Start Date End Date lisinopril Take 1 tablet by 90 tablet 3 02/05/2019 11/03/19 20 (PRINIVIL;ZESTRIL) 10 mg mouth daily. TabletIndications: Hypertension, unspecified type omeprazole (PRILOSEC) 10 Take 10 mg by mouth 0 09/20/2021 mg Capsule, Delayed daily as needed. Release(E.C.) documented as of this encounter Progress Notes Harmony Garcia MD - 04/05/2019 10:50 AM EST Pathology results reviewed, pt called with results and informed of recommendation for repeat colonoscopy in 1 year. I have edited his health maintenance tab to reflect this colonoscopy surveillance interval. documented in this encounter H&P Notes Harmony Garcia MD - 04/05/2019 9:02 AM EST Patient Name: Fly Rm Patient Age: 58 y.o. Birthdate: 1960 Admit date: 04/05/2019 Attending Physician: Harmony Garcia MD Gastroenterology and Hepatology Pre-Procedure History and Physical Exam Procedure: Colonoscopy: Indication: initial CRC screening exam Patient drank all of the bowel prep. Not on any blood thinners. History of appendectomy, otherwise no h/o intra-abdominal surgeries. No family history of CRC or large colon polyps to patient's knowledge. Patient Active Problem List Diagnosis Code ??? Cigarette smoker F17.210 ??? Hypertension I10 ??? Elevated cholesterol E78.00 ??? Gastroesophageal reflux disease without esophagitis K21.9 EXAM: HEENT: Airway examined, oropharynx clear Mallampati Score: II (soft palate, uvula, fauces visible) LUNGS: Clear to auscultation HEART: Regular rate and rhythm, normal S1, S2 ABDOMEN: Normal bowel sounds, soft, non tender, non distended, A/P Proceed with the planned endoscopic procedure. ASA 3 - Patient with moderate systemic disease with functional limitations Sedation Plan: moderate (conscious sedation) Risks and benefits of the procedure explained to the patient. Consent signed. Harmony Garcia MD Advanced Endoscopy Fellow Gastroenterology documented in this encounter Plan of Treatment Not on filedocumented as of this encounter Procedures Procedure Name Priority Date/Time Associated Comments Diagnosis SPECIMEN TO PATHOLOGY Routine 04/05/2019 10:16 Re sults for this AM EST procedure are i n the results section. SPECIMEN TO PATHOLOGY Routine 04/05/2019 10:16 Re sults for this AM EST procedure are i n the results section. SPECIMEN TO PATHOLOGY Routine 04/05/2019 10:16 Re sults for this AM EST procedure are i n the results section. SURGICAL PATHOLOGY Routine 04/05/2019 9:27 AM Res ults for this REPORT EST procedure are i n the results section. COLONOSCOPY, 04/05/2019 9:09 AM Screening for POLYPECTOMY, REMOVAL EST colorectal cancer LESION BY SNARE ([facility]VU slipt dose 4.67) COLONOSCOPY Routine 04/05/2019 9:00 AM Results f or this EST procedure are i n the results section. documented in this encounter Results Specimen to Pathology (04/05/2019 10:16 AM EST) Specimen Anatomical Collection Method Collection Time Receive d Time (Source) Location / / Volume Laterality AP Specimen 04/05/2019 10:16 04/05/2019 AM EST 10:16 AM EST Narrative [facility] [place] 04/05/2019 10:16 AM EST Specimen requisition ordered. ??Separate Pathology report to follow Harmony Garcia MD PATHOLOGY/CYTOLOGY ORDERABLE S Performing Organization Address City/[facility]/[place] [address] Specimen to Pathology (04/05/2019 10:16 AM EST) Specimen Anatomical Collection Method Collection Time Receive d Time (Source) Location / / Volume Laterality AP Specimen 04/05/2019 10:16 04/05/2019 AM EST 10:16 AM EST Narrative [facility] - 04/05/2019 10:16 AM EST Specimen requisition ordered. ??Separate Pathology report to follow Harmony Garcia MD PATHOLOGY/CYTOLOGY ORDERABLE S Performing Organization Address City/[facility] [place] [address] Specimen to Pathology (04/05/2019 10:16 AM EST) Specimen Anatomical Collection Method Collection Time Receive d Time (Source) Location / / Volume Laterality AP Specimen 04/05/2019 10:16 04/05/2019 AM EST 10:16 AM EST Narrative [facility] - 04/05/2019 10:16 AM EST Specimen requisition ordered. ??Separate Pathology report to follow Harmony Garcia MD PATHOLOGY/CYTOLOGY ORDERABLE S Performing Organization Address City/State/ZIP Code [place] [address] [facility] [address] Surgical Pathology Report (04/05/2019 9:27 AM EST) Component Value Ref Test Analysis Performed At [facility] gist Range Method Time Signature Surgical [id number] ? Location: 4T; EA09; A [facility] Pathology [employer] Report The signing pathologist has (i) examined the relevant preparation(s) for the [facility] specimen(s) and (ii) rendered or confirmed the diagnosis(es) . HOSPITAL LABORATORY . ?Surgic al Pathology DIAGNOSIS A - Transverse colon, polypectomy: Tubular adenomas. B - Ascending colon, polypectomy: Tubular adenoma. C - Sigmoid colon, polypectomy: Tubulovillous adenoma with high grade dysplasia. CR-PX Electronically signed by: ??Raul Garcia MD Verified: ??04/07/2019 ?Pathologist Performed at: ??-[facility] Dept. of Pathology, [place], [place] CLINICAL INFORMATION Specimen Submitted: A - Transverse colon polyps x2 B - Ascending colon polyp C - Sigmoid colon polyp Clinical History and Diagnosis: Screening colonoscopy SPECIMEN PROCESSING A - Labeled/Fixative: Transverse colon polyps x2, formalin. Quantity/Size: Three, 0.4-0.5 cm. Tissue Description: Soft, polypoid, pink tissues. Sections/Processing: Submitted en toto ??in 1 cassette labeled A1. B - Labeled/Fixative: Ascending colon polyp, formalin. Quantity/Size: Two, 0.4 and 0.7 cm. Tissue Description: Soft, flattened, polypoid, pink tissues. Sections/Processing: Submitted en toto ??in 1 cassette labeled B1. C - Labeled/Fixative: Sigmoid colon polyp, formalin. Quantity/Size: Single, 1.1 x 0.9 x 0.7 cm. Tissue Description: Soft, polypoid, pink tissue. Sections/Processing: Inked, trisected and entirely submitted in 1 cassette labele d C1. ??ejr Specimen (Source) Anatomical Collection Method Collection Time Re ceived Time Location / / Volume Laterality 04/05/2019 9:27 AM EST Harmony Garcia MD PATHOLOGY/CYTOLOGY ORDERABLE S Performing Organization Address [facility]/[place] [address] COLONOSCOPY (04/05/2019 9:00 AM EST) [facility] gist Method Time Signature COLONOSCOPY [facility] Endoscopy Procedure Date: 04/05/2019 9:00 AM ? Patient Name: Fly Rm ? Date of : 1960 ? Age: 58 ? Order #: [id number] ? Instrument Name: [facility]-[id number] ? Procedure: ? Colonoscopy Indications: ? Screening for colorectal malignant ? neoplasm Providers: ? Harmony Garcia, Betty bhatti, ? Uyen Howard, Mold Stamper And Repairer, Alex Dickey. ? MD Dom Referring : ?Rupal Miller MD Medicines: ? Fentanyl 150 micrograms IV, Midazo nickerson ? 3 mg IV Complications: ? No immediate complications. Procedure: ? Pre-Anesthesia Assessment: ? - Prior to the procedure, a H istory ? and Physical was performed, a nd ? patient medications and aller gies ? were reviewed. The patient is ? competent. The risks and bene fits of ? the procedure and the sedatio n ? options and risks were discus sed with ? the patient. All questions we re ? answered and informed consent was ? obtained. Patient identificat ion and ? proposed procedure were verif ied by ? the physician, the nurse and the ? maintenance mechanic technician in the pre-procedu re area ? in the endoscopy suite. Menta l Status ? Examination: alert and orient ed. ? Airway Examination: normal ? oropharyngeal airway and neck ? mobility. Respiratory Examina tion: ? clear to auscultation. CV ? Examination: normal. Prophyla ctic ? Antibiotics: The patient does not ? require prophylactic antibiot ics. ? Prior Anticoagulants: The pat ient has ? taken no previous anticoagula nt or ? antiplatelet agents. ASA Grad e ? Assessment: II - A patient wi th mild ? systemic disease. After revie wing the ? risks and benefits, the patie nt was ? deemed in satisfactory condit ion to ? undergo the procedure. The an esthesia ? plan was to use moderate dagoberto tion / ? analgesia (conscious sedation ). ? Immediately prior to administ ration ? of medications, the patient w as ? re-assessed for adequacy to r eceive ? sedatives. The heart rate, ? respiratory rate, oxygen satu rations, ? blood pressure, adequacy of p ulmonary ? ventilation, and response to care ? were monitored throughout the ? procedure. The physical statu s of the ? patient was re-assessed after the ? procedure. ? The procedure, indications, b enefits, ? [...] rectal exam was perfo rmed. ? The Colonoscope was inserted in the ? anus and under direct visuali zation, ? advanced to the cecum, identi fied by ? appendiceal orifice and ileoc ecal ? valve. Careful inspection was made as ? the colonoscope was withdrawn . The ? colonoscopy was performed wit khang ? difficulty. The patient rambo ated the ? procedure well. The quality o f the ? bowel preparation was evaluat ed using ? the BBPS ([place] Bowel Prepar ation ? Scale) with scores of: Right Colon = ? 3, Transverse Colon = 3 and L eft ? Colon = 3 (entire mucosa seen well ? with no residual staining, sm all ? fragments of stool or opaque liquid). ? The total BBPS score equals 9 . ? Findings: ? Four sessile polyps were found in the distal sigmoid ? colon, transverse colon, mid transverse colon and ? proximal ascending colon. The polyps in the ? transverse and ascending colon were 3 to 5 mm in ? size. The polyp in the sigmoid colon was 1 cm. These ? polyps were removed with a cold snare. A clip was ? placed over the polypectomy site in the sigmoid ? colon. Resection and retrieval were complete. ? Verification of patient identification for the ? specimen was done by the physician, nurse and ? maintenance mechanic technician. Estimated blood loss was minimal. ? A few small-mouthed diverticula were found in the ? descending colon. ? Moderate Sedation: ? I was present during the intraservice time as ? documented by the sedation RN. Impression: ?- Four 3 to 10 mm polyps in the ? distal sigmoid colon, in the ? transverse colon, in the mid ? transverse colon and in the p roximal ? ascending colon, removed with a cold ? snare. Resected and retrieved . ? - Diverticulosis in the desce nding ? colon. Recommendation: ?- Discharge patient to home. ? - Advance diet as tolerated. ? - Await pathology results; reilly du ? repeat surveillance colonosco py in 3 ? years depending on pathology results. ? - Return to primary care phys ician as ? previously scheduled. ? Attending Participation: ? I was present and participated during the entire ? procedure, including non-colon portions. ? Harmony Garcia, 04/05/2019 10:26:03 AM Number of Addenda: 0 Note Initiated On: 04/05/2019 9:00 AM Specimen (Source) Anatomical Collection Method Collection Time Re ceived Time Location / / Volume Laterality 04/05/2019 9:00 AM EST Rupal Miller [facility] DIAGNOSTICIAN GENERAL SURGICAL ORDERABLES Performing Organization Address City/State/ZIP Code Phon e Number [employer] documented in this encounter Visit Diagnoses Not on filedocumented in this encounter Administered Medications Inactive Administered Medications - up to 3 most recent administrations Medication Order MAR Action Action Date Dose Rate Site fentaNYL 50 mcg/mL multi-dose Given 04/05/2019 9:16 AM EST 50 mc g injection ONCE PRN, Starting on Fri04/05/19 at 0910, Until Fri04/05/19 at 1255, Intra-Operative (Intra-Procedure), Routine Given 04/05/2019 9:13 AM EST 50 mcg Given 04/05/2019 9:10 AM EST 50 mcg lactated ringers infusion New Bag 04/05/2019 9:00 AM EST 200 mL/hr 200 mL/hr 200 mL/hr, Intravenous, CONTINUOUS, Starting on Fri04/05/19 at 0900, Until Fri04/05/19 at 1043, Endoscopy (Day of Procedure) midazolam (PF) (VERSED) multi-dose injec tion Given 04/05/2019 9:16 AM EST 1 mg ONCE PRN, Starting on Fri04/05/19 at 0910, Until Fri04/05/19 at 1255, Intra-Operative (Intra-Procedure), Routine Given 04/05/2019 9:13 AM EST 1 mg Given 04/05/2019 9:10 AM EST 1 mg documented in this encounter Active and Recently Administered Medications Times are shown in EST. Continuous Medication Order 04/03/2019 04/04/2019 04/05/2019 lactated ringers infusion (CANCELED) 0900 (New Bag - Provider: Bar Landrum RN) 200 mL/hr, at 200 mL/hr, Intravenous, CO NTINUOUS, Starting Fri04/05/19 at 0900, Until Fri04/05/19 at 1043, Endo (Day of Procedure) PRN Medication Order 04/03/2019 04/04/2019 04/05/2019 fentaNYL 50 mcg/mL multi-dose injection (CANCELED) 0910 (Given - Provider: Betty Jean RN)0913 (Given - Provider: Betty Jean RN)0916 (Given - Provider: Betty Jean RN) ONCE PRN, Starting Fri04/05/19 at 0910, Until Fri04/05/19 at 1255, Intra- Operative (Intra-Procedure), Routine midazolam (PF) (VERSED) multi-dose injection (CANCELED) 0910 (Given - Provider: Betty Jean RN)0913 (Given - Provider: Betty Jean RN)0916 (Given - Provider: Betty Jean RN) ONCE PRN, Starting Fri04/05/19 at 0910, Until Fri04/05/19 at 1255, Intra- Operative (Intra-Procedure), Routine documented in this encounter Care Teams Protocol Officer Relationship Specialty Start Date End Date Rupal Miller APRN PCP - General General Internal Medicine 01/17/[address] [facility] [place] [address] documented as of this encounter
--- OUTSIDE RECORDS SUMMARY | 2021-10-03 11:08 | XMS_ITS | Encounter Summary ---
:1960 Author Organization [facility] [place] [address] Care Team Providers Name Role Phone Latisha Healy MD Primary Care Provider Reason for Visit Reason Onset Date Comments Medication Refill 05/21/2019 Encounter Details Date Type Department Care Team Description 05/21/2019 Refill Internal Medicine at [facility] Beverley Purdy Hypertension, unspecified [facility] [address] Social History Tobacco Use Types Packs/Day [...] type documented in this encounter Care Teams Lawyer Criminal Relationship Specialty Start Date End Date Latisha Healy MD PCP - General General Internal Medicine 09/20/21 [facility] [place] [address] documented as of this encounter
--- OUTSIDE RECORDS SUMMARY | 2021-10-03 11:08 | XMS_ITS | Encounter Summary ---
:1960 Author Organization [facility] [place] [address] Care Team Providers Name Role Phone Rupal Miller APRN Primary Care Provider [phone] Encounter Details Date Type Department Care Team Description 04/05/2019 Hospital Encounter Gastroenterology at [facility] Harmony Garcia, [facility] [place] [address] [facility] [phone] [place], [place] [address] Social History Tobacco Use Types [...] Sign Reading Time Taken Comments Blood Pressure 127/81 04/05/2019 10:30 AM EST Pulse 69 04/05/2019 10:18 AM EST Temperature 36.6 ??C (97.9 ??F) 04/05/2019 8:50 AM EST Respiratory Rate 18 04/05/2019 10:40 AM EST Oxygen Saturation 100% 04/05/2019 10:40 AM EST Inhaled Oxygen Concentration - - Weight - - Height - - Body Mass Index - - documented in this encounter Discharge Instructions AttachmentsThe following attachments cannot be sent through Care Everywhere. Colonoscopy: Post-op (Burmese)documented in this encounter Medications at Time of [...] AM EST 10:16 AM EST Narrative [facility] - 04/05/2019 10:16 AM EST Specimen requisition ordered. ??Separate Pathology report to follow Harmony Garcia MD PATHOLOGY/CYTOLOGY ORDERABLE S Performing Organization Address City/State/[place] [address] Specimen to Pathology (04/05/2019 10:16 AM EST) Specimen Anatomical Collection Method Collection Time Receive d Time (Source) Location / / Volume Laterality AP Specimen 04/05/2019 10:16 04/05/2019 AM EST 10:16 AM EST Narrative [facility] - 04/05/2019 10:16 AM EST Specimen requisition ordered. ??Separate Pathology report to follow Harmony Garcia MD PATHOLOGY/CYTOLOGY ORDERABLE S Performing Organization Address City/[facility]/[place] [address] Specimen to Pathology (04/05/2019 10:16 AM EST) Specimen Anatomical Collection Method Collection Time Receive d Time (Source) Location / / Volume Laterality AP Specimen 04/05/2019 10:16 04/05/2019 AM EST 10:16 AM EST Narrative [facility] - 04/05/2019 10:16 AM EST Specimen requisition ordered. ??Separate Pathology report to follow Harmony Garcia MD PATHOLOGY/CYTOLOGY ORDERABLE S Performing Organization Address City/State/ZIP Code Phon [place] [address] [facility] [address] Surgical Pathology Report (04/05/2019 9:27 AM EST) Component Value Ref Test Analysis Performed At [facility] gist Range Method Time Signature Surgical [id number] ? Location: 4T; EA09; [facility] Pathology [facility] Report The signing pathologist has (i) examined [...] Garcia MD Verified: ??04/07/2019 ?Pathologist Performed at: ??-[facility] Dept. of Pathology, [place], [place] CLINICAL INFORMATION Specimen Submitted: A - [...] Organization Address City/State/[place] [address] COLONOSCOPY (04/05/2019 9:00 AM EST) [facility] gist Method Time Signature COLONOSCOPY [facility] [employer] Endoscopy Procedure Date: 04/05/2019 9:00 AM ? Patient Name: Fly Rm ? Date of : 1960 ? Age: 58 ? Order #: [id number] ? Instrument Name: [id number] ? Procedure: ? Colonoscopy Indications: ? Screening for colorectal malignant ? neoplasm Providers: ? Harmony Garcia, Betty bhatti, ? Uyen Howard, Electrician Office, Alex Dickey. ? MD Dom Referring : [...] the physician, the nurse and the ? medtronics technician in the pre-procedu re area ? [...] was evaluat ed using ? the BBPS ([place] Bowel Prepar ation ? Scale) with scores [...] done by the physician, nurse and ? medtronics technician. Estimated blood loss was minimal. ? [...] Laterality 04/05/2019 9:00 AM EST Rupal Miller APRN GENERAL SURGICAL ORDERABLES Performing Organization Address City/State/ZIP Code Phon e Number [employer] documented in this encounter Visit Diagnoses Not on filedocumented in this encounter Administered Medications Inactive Administered Medications - up to 3 most recent administrations Medication Order MAR Action Action Date Dose Rate Site lactated ringers infusion New Bag 04/05/2019 9:00 AM EST 200 mL/hr 200 mL/hr 200 mL/hr, Intravenous, CONTINUOUS, Starting on Fri04/05/19 at 0900, Until Fri04/05/19 at 1043, Endoscopy (Day of Procedure) documented in this [...] (CANCELED) 0910 (Given - Provider: Betty Jean RN)912 (Given - Provider: Betty Jean RN)915 (Given - Provider: Betty Jean RN) ONCE PRN, Starting 04/05/19 at 0910, Until Fri04/05/19 at 1255, Intra- Operative (Intra-Procedure), Routine midazolam (PF) (VERSED) multi-dose injection (CANCELED) 909 (Given - Provider: Betty Jean RN)912 (Given - Provider: Betty Jean RN)915 (Given - Provider: Betty Jean RN) ONCE PRN, Starting Fri04/05/19 at 0910, Until Fri04/05/19 at 1255, Intra- Operative (Intra-Procedure), Routine documented in this encounter Care Teams Glue Clamp Operator Relationship Specialty Start Date End Date Rupal Miller APRN PCP - General General Internal Medicine 01/17/[address] [place] [address] [place] [address] documented as of this encounter
--- OUTSIDE RECORDS SUMMARY | 2021-10-03 11:08 | XMS_ITS | Encounter Summary ---
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 Critical access hospital D R [facility] [place] [address] [place] [address] Referral ID Status Reason Start Date Expiration Date Visits V isits Requested Authorized [id number] Closed Test Only 01/29/2018 01/29/2019 1 1 Reason for Visit Reason Comments Annual Exam Encounter Details Date Type Department Care Team Description 01/29/2018 Office Visit Internal Medicine at Rupal Miller althcare maintenance; [facility] S, ANTONY Screening for colorectal cancer; Critical access hospital Cig arette smoker; Stephanie YAP Elevated cholesterol; [place], [place] VASCULAR SURGERY Essential hypertension [id number] [place] [address] Social History Tobacco Use Types Packs/Day Years [...] Sign Reading Time Taken Comments Blood Pressure 132/78 01/29/2018 8:33 AM EST Pulse 64 01/29/2018 7:47 AM EST Temperature 36.3 ??C (97.3 ??F) 01/29/2018 7:47 AM EST Respiratory Rate 16 01/29/2018 7:47 AM EST Oxygen Saturation 100% 01/29/2018 7:47 AM EST Inhaled Oxygen Concentration - - Weight 84.2 kg (185 lb 9.6 oz) 01/29/2018 7:47 AM EST Height 169.7 cm (5' 6.81) 01/29/2018 7:47 AM EST Body Mass Index 29.23 01/29/2018 7:47 AM EST documented in this encounter Progress Notes Rupal Miller, CLASS C DRIVER - 01/29/2018 8:00 AM EST Images from the original note were not included. Subjective: Patient ID: Fly Rm is a 57 y.o. male here for a routine physical exam. Here for annual health review. Feels well and has no complaints. HTN: BPs at home 114-126/75-87 over the last 3 days. Otherwise he's getting 110-120s/70s-80s. Takinghis lisinopril 10 mg w/o side effects. His cuff has been checked against ours but it was a year ago.Read about the DASH diet but found it too complicated. Smoking: He has decreased to maybe 5 cig/day average. No firm plans to quit but almost never smokes in the car anymore. HLD: Eating more fish. Avoiding fast food. Less ice cream. He was weighing in the 170s during the summer but had some knee pain that affected his ability to exercise. Doesn't want to take a statin justbecause he doesn't like to take pills. Exercise: Walks on treadmill 35-40 minutes 3-4 times/week. Does not want vaccinations because he doesn't like too many things in his body and is concerned about side effects. Colon cancer screening. He was supposed to call back about scheduling this. Verito would be his DPOA for health care. He has not returned his wishes in writing to us. Social History Social History Narrative Lives with Verito and son Yann (2000). Great marriage. Grew up in [place] with parents and 3 sisters. Good childhood. Has lived in [place]. 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 Doesn't like the work much but 'it keeps me fromspending money'. Likes to ride his Luc, herbie leana, involved with youth baseball. No dudley practice. Social History Tobacco Use ??? Smoking status: Current Some Day Smoker Packs/day: 0.66 Years: 32.00 Pack years: 21.12 Types: Cigarettes Start date: 02/06/1976 ??? Smokeless tobacco: Never Used ??? Tobacco comment: nonsmoker for about 10 years from on Substance Use Topics ??? Alcohol use: Yes Alcohol/week: 3.6 oz Types: 6 Cans of beer per week Frequency: 2-4 times a month Drinks per session: 5 or 6 Binge frequency: Less than monthly Family History Problem Relation Age of Onset [...] Neg Hx ??? Ovarian Cancer Neg Hx myD-H Primary Care 01/29/2018 PROMIS 10-Health in general Good PROMIS 10-Quality of life Very Good PROMIS 10-Physical health Good PROMIS 10-Mental health Very Good PROMIS 10-Satisfaction with social activities Very Good PROMIS 10-Ability to carry out social activities Excellent PROMIS 10-Ability to carry out physical activities Completely PROMIS 10-Bothered by emotional problems Rarely PROMIS 10-Rate of fatigue Mild PROMIS 10-Rate of pain 0 -No Pain PROMIS 10- Physical Health Score 54.1 PROMIS 10- Mental Health Score 53.3 REVIEW OF SYSTEMS 01/29/2018 Constitutional negative Ear / nose / throat / mouth negative Eyes None of the above Respiratory negative Cardiovascular negative Gastrointestinal negative Skin, hair negative Musculoskeletal negative Neurological negative Genitourinary negative PHQ-9 QUESTIONNAIRE (AMB) 01/29/2018 Little interest or pleasure (Clinic) - Little interest or pleasure (Patient) Not at all Down, depressed, hopeless (Clinic) - Down, depressed, hopeless (Patient) Not at all Review of Systems As above. Medications 01/29/18 0746 Medication Sig Taking? lisinopril (PRINIVIL;ZESTRIL) 10 mg Tablet Take 1 tablet by mouth daily. Yes omeprazole (PRILOSEC) 10 mg Capsule, Delayed Release(E.C.) Take 10 mg by mouth daily. Yes Allergies Allergen Reactions ??? Shellfish Containing Products Anaphylaxis Objective: Most Recent Vitals: 01/29/18 0747 BP: 152/90 Pulse: 64 Resp: 16 Temp: 36.3 ??C (97.3 ??F) SpO2: 100% BP recheck 132/78 right arm, manual cuff Wt Readings from Last 3 Encounters: 01/29/18 84.2 kg (185 lb 9.6 oz) 06/05/17 86.2 kg (190 lb) 02/20/17 89.8 kg (198 lb) Physical Exam Constitutional: He is oriented to [...] Judgment and thought content normal. Vitals reviewed. Lab Results Component Value Date NA 143 02/20/2017 K 4.2 02/20/2017 CL 106 02/20/2017 CO2 27 02/20/2017 BUN 15 02/20/2017 CREATININE 1.02 02/20/2017 GLUCFASTING 91 02/20/2017 CALCIUM 9.9 02/20/2017 ESTGFR >60 02/20/2017 The 10-year ASCVD risk score (Trina VIERA Jr., et al., 2013) is: 16.4% Values used to calculate the score: Age: 57 years Sex: Male Is Non- : No Diabetic: No Tobacco smoker: Yes Systolic Blood Pressure: 152 mmHg Is BP treated: Yes HDL Cholesterol: 46 mg/dL Total Cholesterol: 161 mg/dL Assessment and Plan: 1. Healthcare maintenance Health Maintenance Topic Date Due ??? Pneumo Increased Risk (1 of 1 - PPSV23) 11/15/1978 ??? Tdap adult 11/15/1978 ??? Tetanus vaccine 11/15/1978 ??? Colonoscopy 11/15/2009 ??? Zoster vaccine (1 of 2) 11/15/2009 ??? Advance Directive 11/15/2014 ??? Influenza (Flu) vaccine (1 of 1 - Influenza standard series) 11/22/2017 ??? Diabetes Screening (HgbA1C or Glucose) 02/21/2020 ??? Lipid Screening 06/05/2022 ??? HIV screen Completed I did encourage him to reconsider vaccine decision. Advised he would not get sick from these. Pointed out benefit to public health of widespread vaccinations as well. Gave booklet on Advanced Directives and encouraged to bring wishes in writing to be recorded in his record here. 2. Screening for colorectal cancer - Referral to Gastroenterology 3. Cigarette smoker Encouraged to quit smoking and offered assistance if he desires. He declined. Also gently pointed out the hypocrisy of declining vaccines but continuing to smoke. 4. Elevated cholesterol HealthDecision - Cardiovascular Risk Summary The HealthDecision CVRisk tool helped evaluate risks and benefits of starting a statin medication based on a personal risk of heart attack, stroke or . This tool assumes patients have no history of heart attack, stroke or cardiovascular disease and are not currently taking a statin. Patient Information: 57-year-old male smoker. Systolic Blood Pressure = 152 mmHg and is currently taking BP medications. Lipid levels: Total-C = 161; Triglycerides = 68; HDL-C = 46; LDL-C = 101 - all in mg/dL Assessment Summary The baseline 10-year risk of heart attack, stroke or (event) is : 16.4% Of 100 people age 58 over 10 years: 16 have events while 84 do not. Decision Summary Quitting smoking for 10 years lowers risk from about 16.4% to 11.8% (NNT = 22) Then, taking daily atorvastatin 40mg further lowers risk to about 8.6% (NNT = 31) LDL cholesterol may drop from 101 to about 51 mg/dL. Illustration of Risks: of 100 men age 58, quit smoking, take a statin for 10 yrs: Events = heart attack, stroke or 9 have events after stopping smoking & taking statin. 3 (of 16) SAVE an event with statins. 4 (of 16) SAVE an event by quitting smoking. Side effects = muscle aches. ++81 have no events or side effects 5 have muscle aches at baseline (placebo). INFO 5 more (total 10) have muscle aches due to statin. Additional Notes: I recommend you keep up a health lifestyle and try to bring your weight down into the 170s again. Watch your intake of saturated fats and simple carbs. Taking a cholesterol lowering medication and quitting smoking can lower your risk of heart attack and stroke. 5. Essential hypertension Home readings look good. Will need him to bring cuff in for annual check with MA. Should have asked him to bring it to today's appointment. - Basic Metabolic Panel (non-fasting); Future - Follow up one year or sooner as needed. - An After Visit Summary was given to the patient. documented in this encounter Plan of Treatment Scheduled Referrals Name Type Priority Associated Order Schedule Diagnoses Referral to Outpatient Routine Screening for Ordered: Gastroenterology Referral colorectal cancer 2017 documented as of this encounter Visit Diagnoses Diagnosis Healthcare maintenance Routine general medical examination at a health care facility Screening for colorectal cancer Special screening for malignant neoplasm s, colon Cigarette smoker Tobacco use disorder Elevated cholesterol Pure hypercholesterolemia Essential hypertension Unspecified essential hypertension documented in this encounter Care Teams Table Games Manager Relationship Specialty Start Date End Date Rupal Miller APRN PCP - General General Internal Medicine 01/17/17 1 [facility] [place] [address] documented as of this encounter
--- OUTSIDE RECORDS SUMMARY | 2021-10-03 11:08 | XMS_ITS | Encounter Summary ---
:1960 Author Organization [facility] [place] [address] Care Team Providers Name Role Phone Rupal Miller APRN Primary Care Provider [phone] Reason for Visit Reason Comments Establish Care blood pressure Encounter Details Date Type Department Care Team Description 01/23/2017 Office Visit Internal Medicine at Kathia Miller, unspecified type; [facility] Rupal Mena APRN Screening for HIV (human immunodeficienc y virus) [facility] [address] [place], [place] VASCULAR SURGERY [id number] [place] [address] [facility] Social History Tobacco Use Types Packs/Day Years Used Date Current Every Day Smoker Smokeless Tobacco: Never Used Alcohol Habits Answer Date Recorded How often [...] Sign Reading Time Taken Comments Blood Pressure 163/89 01/23/2017 2:09 PM EDT Pulse 78 01/23/2017 1:13 PM EDT Temperature 36.9 ??C (98.4 ??F) 01/23/2017 1:13 PM EDT Respiratory Rate 18 01/23/2017 1:13 PM EDT Oxygen Saturation 100% 01/23/2017 1:13 PM EDT Inhaled Oxygen Concentration - - Weight 87.8 kg (193 lb 9.6 oz) 01/23/2017 1:13 PM EDT Height 173 cm (5' 8.11) 01/23/2017 1:13 PM EDT Body Mass Index 29.34 01/23/2017 1:13 PM EDT documented in this encounter Patient Instructions Patient InstructionsRupal Miller APRN - 01/23/2017 1:40 PM EDT Please look into the DASH diet eating plan. Please bring your blood pressure cuff and some additional home readings to the follow up appointment. documented in this encounter Progress Notes Rupal Miller APRN - 01/23/2017 1:40 PM EDT Subjective: Patient ID: Fly Rm is a 56 y.o. male. Chief Complaint Patient presents with ??? Establish Care blood pressure Here to establish care. Blood pressure was very high at his dentist office a few weeks ago (168/114)and the dentist refused to do the work that was planned for the appointment. He started checking hisblood pressures at home. In the morning he gets 130/85. In the evenings it's 145/95. He d Also wonders about his blood sugar because he gets light headed if he hasn't eaten. Denies polyuria/polydypsia, unusual hunger. No unexplained weight loss. Review of Systems Constitutional: Negative for diaphoresis and fever. HENT: Negative. Negative for nosebleeds. Respiratory: Positive for wheezing (a little bit, not new). Negative for cough and shortness of breath. Cardiovascular: Negative for chest pain. Neurological: Negative for headaches. Objective: Visit Vitals ??? BP (!) 166/93 (BP Location (NBP): Right arm, Patient Position: Sitting, BP Cuff Sizes: Adult (25-34 cm)) ??? Pulse 78 ??? Temp 36.9 ??C (98.4 ??F) (Oral) ??? Resp 18 ??? Ht 173 cm (5' 8.11) ??? Wt 87.8 kg (193 lb 9.6 oz) ??? SpO2 100% ??? BMI 29.34 kg/m2 Patient reported measures: Pain:0 Physical Health:Decline to answer/Don't know Fall: No flowsheet data found. Wt Readings from Last 3 Encounters: 01/23/17 87.8 kg (193 lb 9.6 oz) Physical Exam Assessment and Plan: - An After Visit Summary was given to the patient. - Fly was given the necessary information on his condition and was advised to notify department with worsening or persistent symptoms. Rupal Miller APRN - 01/23/2017 1:40 PM EDT Subjective: Patient ID: Fly Rm is a 56 y.o. male here for a routine physical exam. Here to establish care. Hasn't had regular care since he was a child. Blood pressure was very high at his dentist office a few weeks ago (168/114) and the dentist refused to do the work that was planned for the appointment. He started checking his blood pressures at home. In the morning he gets 130/85. In the evenings it's 145/95. ? Fluttering heart beat: He does have some fluttering feeling in his chest about once a month and lasts a second or two. Not associated with exertion or chest pain. He did have a cardiac cath in 2001 that he thinks was normal. Was done for abnormal EKG. He doesn't recall any real diagnosis but the suggestion was to cut back on his coffee intake. He doesn't drink any now. ?? Blood sugar: Also wonders about his blood sugar because he gets light headed if he hasn't eaten. Denies polyuria/polydypsia, unusual hunger. No unexplained weight loss. His sister might have diabetes but she doesn't take insulin. His mother had low blood sugar, he thinks. ?? Surface numbness: of the skin above his knees on either leg on and off. Not bothersome. Present and unchanging for 20 years. ?? Acid reflux: Takes prilosec daily over the counter. He didn't really ever have a regular problem with this but is afraid about rebound symptoms. Has never had EGD. ?? Smoking cigarettes: Smokes about 15/day. Has smoked on and off for about 40 years. He is trying to wean himself off. Drinks 5-6 beers once/week. Denies other ilicit or rec drug use. He has started paying attention to sodium content in foods and has been cutting back. Has been looking at the DASH diet. myD-H Primary Care 01/23/2017 PROMIS 10-Health in general Good PROMIS 10-Quality of life Very Good PROMIS 10-Physical health Good PROMIS 10-Mental health Very Good PROMIS 10-Satisfaction with social activities Very Good PROMIS 10-Ability to carry out social activities Excellent PROMIS 10-Ability to carry out physical activities Completely PROMIS 10-Bothered by emotional problems Sometimes PROMIS 10-Rate of fatigue None PROMIS 10-Rate of pain 0 -No Pain PROMIS 10- Physical Health Score 57.7 PROMIS 10- Mental Health Score 50.8 REVIEW OF SYSTEMS 01/23/2017 Constitutional None of the above Ear / nose / throat / mouth None of the above Eyes None of the above Respiratory Wheezing Cardiovascular Fluttering heart beat (heart palpitations), Chest tightness, Don't know Gastrointestinal None of the above Skin, hair None of the above Musculoskeletal Don't know Neurological Balance difficulty, dizziness, Numbness, tingling Genitourinary None of the above PHQ-9 QUESTIONNAIRE (AMB) 01/23/2017 Little interest or pleasure (Patient) Not at all Down, depressed, hopeless (Patient) Not at all Review of Systems As above Objective: Most Recent Vitals: 01/23/17 1313 BP: (!) 166/93 Pulse: 78 Resp: 18 Temp: 36.9 ??C (98.4 ??F) SpO2: 100% PainSc: 0 - No pain BP recheck 163/89 right arm, seated Wt Readings from Last 3 Encounters: 01/23/17 87.8 kg (193 lb 9.6 oz) Physical Exam Constitutional: He is oriented to person, place, and time. He appears well- developed and well-nourished. No distress. HENT: Head: Normocephalic and atraumatic. Right Ear: External ear normal. Left Ear: External ear normal. Mouth/Throat: Oropharynx is clear and moist. [...] Judgment and thought content normal. Vitals reviewed. Assessment and Plan: Here to establish care and get his blood pressure under control. 1. Hypertension, unspecified type - CMP w/fasting Glucose; Future - Lipid Panel; Future - CBC (with Diff); Future Will check labs and have him return for more thorough PFSHx and recheck BP here again. He will bringhis BP cuff from home for calibration and some readings. Encouraged DASH diet. Would consider starting with lisinopril 5 mg. 2. Screening for HIV (human immunodeficiency virus) - HIV Screen, 4th Generation; Future Encouraged flu and Tdap today but he didn't want them. Encouraged him to reconsider. - An After Visit Summary was given to the patient. documented in this encounter Plan of Treatment Not on filedocumented as of this encounter Results HIV Screen, 4th Generation (02/05/2017 7:00 AM EST) Analysis Performed At Patho logist Time Signature HIV-1/2 Ab and Negative Negative [facility] Comment: This 4th Generation HIV test [...] Comment Spec In Lab Rupal Miller APRN IMMUNOLOGY ORDERABLES Performing Organization Address City/State/[place] [address] (ABNORMAL) Lipid Panel (02/05/2017 7:00 AM EST) Patholo gist Method Time Signature Chol, Total 148 <=239 CHIN mg/dL [facility] Triglycerides 114 <=199 CHIN mg/dL [facility] HDL 38 (L) >=40 CHIN mg/dL [facility] LDL Cholesterol 87 <=190 CHIN mg/dL [facility] Chol/HDL Ratio 3.9 ratio [facility] Lipid See Note CHIN Interpretation [facility] Comment: Lipid management should be guided by a p atient? s ASCVD risk, goals and preferences. ACC/AHA Guidelines recommend high intens ity statin if clinical ASCVD or LDL greater than or equal to 190 mg/dL. http://incir.com.[place]/CWF-WNX-Rfwjvgrch Adults aged 40-75 with LDL 70-189 mg/dL should have their 10 year ASCVD risk estimated with the ACC/AHA ASCVD risk es timator http://tools.acc.org/RBFBN-Bxnd-Ygppryxe r/ Statin should be discussed if risk [...] Organization Address City/State/[place] [address] CMP w/fasting Glucose (02/05/2017 7:00 AM EST) athologist Signature Glucose 95 65 - 99 [facility] Fasting mg/dL [facility] Comment: ?Fasting* Glucose Interpretive C [...] of Diabetes Mellitus, Position Statement from the [place] [employer]. ??Diabete s Care, Volume 33, Supplement 1, Mar 2009 BUN 20 10 - 20 mg/dL [facility] Creatinine 1.13 0.80 - 1.50 mg/dL [facility] Sodium 144 135 - 145 mmol/L [facility] Potassium 4.5 3.5 - 5.0 mmol/L [facility] Comment: Please note: ??Patients with WBC >100,00 0 may have falsely elevated Potassium levels. ??For accurate Potassium quantif ication in these patients send serum separator tube (gold top) for subsequent determinations. ??Contact the Clinical Chemistry Laboratory if there are any qu estions. Chloride 106 98 - 107 mmol/L [facility] CO2 28 22 - 31 mmol/L [facility] Anion Gap 10 5 - 15 mmol/L [facility] Calcium 10.1 8.5 - 10.5 mg/dL [facility] Total Protein 6.7 6.1 - 8.0 gm/dL [facility] Albumin 4.1 3.2 - 5.2 gm/dL [facility] AST 14 0 - 39 unit/L [facility] ALT 13 0 - 55 unit/L [facility] Alk Phos 51 40 - 120 unit/L [facility] Total Bilirubin 0.4 0.2 - 1.3 mg/dL [facility] Estimated GFR >60 >=60 [facility] Comment: The reported eGFR should be multiplied b y 1.2 for patients. The MDRD is not an appropriate measure o f renal function for patients with body mass extremes or in patients with acute kidney failure. http://SenGenix/DHnkdep http://SenGenix/DHMCnkf Specimen Anatomical Collection Method Collection Time Receive d Time (Source) Location / / Volume Laterality Blood specimen 02/05/2017 7:00 AM 017 7:17 (specimen) EST AM EST Resulting Agency Comment Spec In Lab Rupal Miller APRN CHEMISTRY ORDERABLES Performing Organization Address City/State/[place] [address] documented in this encounter Visit Diagnoses Diagnosis Hypertension, unspecified type Screening for HIV (human immunodeficienc y virus) Special screening examination for other specified viral diseases documented in this encounter Care Teams Port Steward Relationship Specialty Start Date End Date Rupal Miller APRN PCP - General General Internal Medicine 01/17/[address] [place] [address] [place] [address] documented as of this encounter
--- OUTSIDE RECORDS SUMMARY | 2021-10-03 11:09 | XMS_ITS | Encounter Summary ---
:1960 Author Organization [facility] Address [address] [place] [address] Care Team Providers Name Role Phone Unavailable Primary Care Provider Unavailable Encounter Details Date Type Department Care Team Description 09/11/2019 Lab Requisition [facility] Outr Resulting Lab, Pathology & Laboratory Provider [facility] [address] [place] [address] Social History Tobacco Use Types Packs/Day Years Used Date Never Assessed Sex Assigned at Date Recorded Not on file documented as of this encounter Plan of Treatment Not on filedocumented as of this encounter Procedures Procedure Name Priority Date/Time Associated Diagnosis Comme nts COVID[facility] Today 09/11/2019 15:44 LAB PCR EDT COVID-19 TESTING Routine 09/11/2019 15:44 Results for this EDT procedure are i n the results section. documented in this encounter Results COVID-19 TEST [facility] PCR (09/11/2019 15:44 EDT) Specimen Swab - Entire nasopharynx (body structur e) Performing Organization Address City/State/ZIP Code Phon e Number [facility] [address] [place] [address] SERVICES COVID-19 TESTING (09/11/2019 15:44 EDT) COVID-19 rt-PCR Negative Negative [facility] Result Comment: [facility] This test has not been FDA c leared or approved. This test has been authorized by FDA under an EUA for use by authorized laboratories. This test has been authorized only for detection of nucleic acid fro SERVICES m 2019-nCoV, not for any oth er viruses or pathogens. This test is only authorized for the duration of the declaration that circumstances exist justifying the authorization of emergency use of in vitro d iagnostic tests for detectio n and/or diagnosis of 2019-nCoV under section 564(b)(1) of Act, 21 U.S.C ?? 360bbb-3(b) (1), unless the authorization is terminated or revoked sooner. Negative results do not prec lude 2019-nCoV infection and should not be used as the sole basis for treatment or other patient management decisions. Negative results must be combined with clinical observa tions, patient history, and epidemiological informatio n. Performed on the [employer] Fusion instrument Performing Lab [place] [facility] Lab [facility] SERVICES Specimen Swab Performing Organization Address City/State/ZIP Code Phon e Number [facility] [address] [place] [address] SERVICES documented in this encounter Visit Diagnoses Not on filedocumented in this encounter
== END 2021-10-03 11:15 | disposition home or self-care (01) ==
LOC: ER 11:05
PROVIDERS: Emergency Provider Student in an Organized Health Care Education/Training Program; PCP Nurse Practitioner Family
DX: S05.02XA Injury of conjunctiva and corneal abrasion without foreign body, left eye, initial encounter (principal); H10.9 Unspecified conjunctivitis; F17.210 Nicotine dependence, cigarettes, uncomplicated; X58.XXXA Exposure to other specified factors, initial encounter
CPT/HCPCS: 99283; 99284